=== PATIENT | female | born 1930 | race Caucasian/White ===

== ENCOUNTER → 2016-06-06 | Outpatient (CLI) | payer MEDICARE, OTHER ==
[~2016-06-06] MED LIST: CHOL135C6 OR; CHOL1TAB42 PO; COLLCAP2 OR; LANS30CA63 PO; METF-312 PO; OLMETAB3 OR; PANC3000 PO; RIVA20TA PO
== END | disposition home or self-care (01) ==
LOC: LAB 09:59
PROVIDERS: ATTEND Internal Medicine Cardiovascular Disease
DX: E11.9 Type 2 diabetes mellitus without complications (principal)
CPT/HCPCS: 36415; 83036

== ENCOUNTER → 2017-06-16 | Outpatient (CLI) | payer MEDICARE, OTHER ==
[~2017-06-16] MED LIST changes: +ASPI81CH43 PO; +CHLO50TA PO; +CHOL20002 PO; +CLON0.1T PO; +INSU1.2I SC; -METF-312 PO; +METF-370 PO
== END | disposition home or self-care (01) ==
LOC: Rad HDHVI 12:48
PROVIDERS: ATTEND Internal Medicine Cardiovascular Disease
DX: I07.1 Rheumatic tricuspid insufficiency (principal); I11.0 Hypertensive heart disease with heart failure; I50.43 Acute on chronic combined systolic (congestive) and diastolic (congestive) heart failure
CPT/HCPCS: 93306

== ENCOUNTER → 2017-06-23 | Outpatient (CLI) | payer MEDICARE, OTHER ==
[2017-06-23 09:15] VITALS: BP 150/72
[2017-06-23 09:35] VITALS: BP 119/71
[2017-06-23 12:46] LABS: Basophils # (auto) 0.1 uL; Eosinophils # (auto) 0.1 uL; Lymphocytes # (auto) 1.6 uL; Mean Corpuscular Hemoglobin 21.8 pg (28.0-32.0); Monocytes # (auto) 0.6 uL
[2017-06-23 12:47] LABS: Basophils % (auto) 1.3 % (0.0-2.0); Eosinophils % (auto) 1.6 % (0.0-7.0); Hemoglobin 10.2 g/dL (12.2-16.2); Lymphocytes % (auto) 24.1 % (10.0-50.0); Mean Corpuscular Hgb Conc. 30.9 g/dL (32.0-36.0); Mean Corpuscular Volume 70.7 fL (80.0-100.0); Monocytes % (auto) 9.4 % (0.0-12.0); Neutrophils # (auto) 4.3 uL; Neutrophils % (auto) 63.6 % (37.0-80.0); Nucleated Red Blood Cells % 0.2 %; Platelet Count (auto) 396 10^3/uL (140-450); Red Blood Cells 4.66 10^6/uL (4.0-5.20); White Blood Cell 6.8 10^3/uL (4.4-10.8)
[2017-06-23 12:56] LABS: INR 0.99 (0.9-1.15); Partial Thromboplastin Time 23.8 sec (22.64-33.71); Prothrombin Time 10.8 sec (9.37-12.3)
[2017-06-23 13:07] LABS: BUN/Creatinine Ratio 25.5; Potassium 4.1 mmol/L (3.5-5.1)
== END | disposition home or self-care (01) ==
LOC: Rad HDHVI 08:59
PROVIDERS: ATTEND Internal Medicine Cardiovascular Disease
DX: Z01.818 Encounter for other preprocedural examination (principal); K44.9 Diaphragmatic hernia without obstruction or gangrene; M85.80 Other specified disorders of bone density and structure, unspecified site; I51.7 Cardiomegaly; I70.0 Atherosclerosis of aorta; I10 Essential (primary) hypertension; E11.9 Type 2 diabetes mellitus without complications
CPT/HCPCS: 36415; 71046; 80048; 85025; 85610; 85730; 93005; G0463

== ENCOUNTER 2017-06-29 07:59 | Day surgery (SDC) | payer MEDICARE, OTHER ==
[~2017-06-29 07:59] MED LIST changes: -PANC3000 PO; -RIVA20TA PO
[2017-06-29] MEDS ORDERED: LIDOCAINE HCL 2 %PF INJ 10ML AMP IJ ONE ×2 (08:29→09:07)
[2017-06-29] MEDS ORDERED: IOHEXOL 350 MG/ML 100ML IJ ONE (08:29)
[2017-06-29] MEDS ORDERED: ANGIOMAX 250 MG VIAL IV ONE (08:51)
[2017-06-29] MEDS ORDERED: fentaNYL CITRATE 100 MCG/2 ML VL ONE (08:52)
[2017-06-29] MEDS ORDERED: MIDAZOLAM HCL 1MG/1ML-2 ML VIAL ONE (08:52)
[2017-06-29] MEDS ORDERED: SODIUM CHL 0.9% 0 ML ONE (08:52)
== END 2017-06-29 11:30 | disposition home or self-care (01) ==
LOC: CATH 07:59
PROVIDERS: ATTEND Internal Medicine Cardiovascular Disease
DX: I27.20 Pulmonary hypertension, unspecified (principal); I35.0 Nonrheumatic aortic (valve) stenosis; E78.5 Hyperlipidemia, unspecified; E11.9 Type 2 diabetes mellitus without complications; Z79.84 Long term (current) use of oral hypoglycemic drugs
CPT/HCPCS: 93456; C1760; C1769; C1894; J1644; J2250; J3010; J7030; Q9967; 93460; 99152

== ENCOUNTER → 2017-07-07 | Outpatient (CLI) | payer MEDICARE, OTHER ==
[2017-07-07 11:55] VITALS: BP 130/66
[2017-07-13 15:28] VITALS: BP 130/60
== END | disposition home or self-care (01) ==
LOC: CHF HDHVI 16:30
PROVIDERS: ATTEND Internal Medicine Cardiovascular Disease
DX: I27.21 Secondary pulmonary arterial hypertension (principal); I13.0 Hypertensive heart and chronic kidney disease with heart failure and stage 1 through stage 4 chronic kidney disease, or unspecified chronic kidney disease; E11.22 Type 2 diabetes mellitus with diabetic chronic kidney disease; N18.2 Chronic kidney disease, stage 2 (mild); I50.41 Acute combined systolic (congestive) and diastolic (congestive) heart failure; E78.5 Hyperlipidemia, unspecified; E03.9 Hypothyroidism, unspecified; Z79.84 Long term (current) use of oral hypoglycemic drugs
CPT/HCPCS: G0463

== ENCOUNTER → 2017-07-11 | Outpatient (CLI) | payer MEDICARE, OTHER ==
[2017-07-11 10:00] VITALS: BP 127/68
[2017-07-11 10:45] VITALS: BP 131/63
[2017-07-11 12:01] LABS: Basophils # (auto) 0.1 uL; Hemoglobin 10.2 g/dL (12.2-16.2); Mean Corpuscular Hemoglobin 21.7 pg (28.0-32.0); Neutrophils # (auto) 3.3 uL
[2017-07-11 12:03] LABS: Eosinophils # (auto) 0.2 uL; Eosinophils % (auto) 2.8 % (0.0-7.0); Lymphocytes # (auto) 1.4 uL; Lymphocytes % (auto) 25.7 % (10.0-50.0); Mean Corpuscular Volume 70.1 fL (80.0-100.0); Monocytes # (auto) 0.5 uL; Monocytes % (auto) 9.8 % (0.0-12.0); Neutrophils % (auto) 59.7 % (37.0-80.0); Nucleated Red Blood Cells % 0.1 %; Platelet Count (auto) 387 10^3/uL (140-450); Red Cell Distribution Width 18.7 % (11.8-14.3); White Blood Cell 5.5 10^3/uL (4.4-10.8)
[2017-07-11 12:27] LABS: Albumin 3.6 g/dL (3.4-5.0); BUN/Creatinine Ratio 30.3; Bilirubin, Total 0.5 mg/dL (0.2-1.0); Calcium 9.4 mg/dL (8.5-10.1); Magnesium 1.7 mg/dL (1.6-2.6); Total Protein 7.7 g/dL (6.4-8.2)
== END | disposition home or self-care (01) ==
LOC: CHF HDHVI 09:11
PROVIDERS: ATTEND Internal Medicine Cardiovascular Disease
DX: I11.0 Hypertensive heart disease with heart failure (principal); I50.23 Acute on chronic systolic (congestive) heart failure; E11.65 Type 2 diabetes mellitus with hyperglycemia; E03.9 Hypothyroidism, unspecified; E78.5 Hyperlipidemia, unspecified; I27.21 Secondary pulmonary arterial hypertension; I25.10 Atherosclerotic heart disease of native coronary artery without angina pectoris; Z79.84 Long term (current) use of oral hypoglycemic drugs
CPT/HCPCS: 36415; 80053; 82306; 83036; 83735; 84443; 85025; 93701; 94618; G0463

== ENCOUNTER → 2017-07-19 | Outpatient (CLI) | payer MEDICARE, OTHER ==
[~2017-07-19] MED LIST changes: +CYANOCOBALAMIN (B-12) 1000 MCG/1 ML VIAL IM ONE; +CYANOCOBALAMIN (B-12) 1000 MCG/1 ML VIAL ONE
[2017-07-19 10:40] VITALS: BP 196/83
[2017-07-19 11:25] VITALS: BP 162/77
[2017-07-19 16:15] LABS: Urine Bacteria FEW /hpf (None Seen); Urine Blood Negative /uL (Negative); Urine Specific Gravity 1.011 (1.001-1.035); Urine WBC 1 /hpf (0 - 5)
== END | disposition home or self-care (01) ==
LOC: CHF HDHVI 10:39
PROVIDERS: ATTEND Internal Medicine Cardiovascular Disease
DX: N39.0 Urinary tract infection, site not specified (principal); I27.21 Secondary pulmonary arterial hypertension; I13.0 Hypertensive heart and chronic kidney disease with heart failure and stage 1 through stage 4 chronic kidney disease, or unspecified chronic kidney disease; E11.22 Type 2 diabetes mellitus with diabetic chronic kidney disease; N18.2 Chronic kidney disease, stage 2 (mild); I50.43 Acute on chronic combined systolic (congestive) and diastolic (congestive) heart failure; D63.1 Anemia in chronic kidney disease; E78.5 Hyperlipidemia, unspecified; E03.9 Hypothyroidism, unspecified; I25.10 Atherosclerotic heart disease of native coronary artery without angina pectoris; Z79.84 Long term (current) use of oral hypoglycemic drugs
CPT/HCPCS: 81001; 87086; 87088; 87186; G0463; J3420; 96372

== ENCOUNTER → 2017-07-27 | Outpatient (CLI) | payer MEDICARE, OTHER ==
[~2017-07-27] MED LIST changes: -CYANOCOBALAMIN (B-12) 1000 MCG/1 ML VIAL IM ONE; -CYANOCOBALAMIN (B-12) 1000 MCG/1 ML VIAL ONE
[2017-07-27 11:45] VITALS: BP 145/76
[2017-07-27 12:15] VITALS: BP 159/74
[2017-07-27 15:51] LABS: Basophils # (auto) 0.1 uL; Eosinophils # (auto) 0.1 uL; Hemoglobin 9.9 g/dL (12.2-16.2); Monocytes # (auto) 0.7 uL; White Blood Cell 7.5 10^3/uL (4.4-10.8)
[2017-07-27 15:53] LABS: Basophils % (auto) 1.4 % (0.0-2.0); Eosinophils % (auto) 1.8 % (0.0-7.0); Hematocrit 31.8 % (36.0-46.0); Lymphocytes # (auto) 1.5 uL; Lymphocytes % (auto) 20.1 % (10.0-50.0); Mean Corpuscular Hemoglobin 22.1 pg (28.0-32.0); Mean Corpuscular Hgb Conc. 31.2 g/dL (32.0-36.0); Mean Corpuscular Volume 70.9 fL (80.0-100.0); Monocytes % (auto) 9.9 % (0.0-12.0); Neutrophils % (auto) 66.8 % (37.0-80.0); Nucleated Red Blood Cells % 0.5 %; Platelet Count (auto) 354 10^3/uL (140-450); Red Blood Cells 4.48 10^6/uL (4.0-5.20); Red Cell Distribution Width 19.6 % (11.8-14.3)
[2017-07-27 16:03] LABS: Potassium 4.2 mmol/L (3.5-5.1)
== END | disposition home or self-care (01) ==
LOC: CHF HDHVI 11:49
PROVIDERS: ATTEND Internal Medicine Cardiovascular Disease
DX: I13.0 Hypertensive heart and chronic kidney disease with heart failure and stage 1 through stage 4 chronic kidney disease, or unspecified chronic kidney disease (principal); E11.22 Type 2 diabetes mellitus with diabetic chronic kidney disease; I50.43 Acute on chronic combined systolic (congestive) and diastolic (congestive) heart failure; N18.2 Chronic kidney disease, stage 2 (mild)
CPT/HCPCS: 36415; 82565; 82607; 84132; 84520; 85025; G0463

== ENCOUNTER → 2017-07-28 | Outpatient (CLI) | payer MEDICARE, OTHER ==
[~2017-07-28] VITALS: Ht 30.5 cm; Wt 0.5 kg
[~2017-07-28] MED LIST changes: +MAGNESIUM OXIDE 400 MG TAB ONE; +MAGNESIUM OXIDE 400 MG TAB PO ONE; +POTASSIUM CHL 20 Meq TABLET PO ONE
[2017-07-28 11:00] VITALS: BP 124/65
[2017-07-28 15:57] LABS: Basophils # (auto) 0.1 uL; Hemoglobin 9.3 g/dL (12.2-16.2); Lymphocytes # (auto) 1.2 uL; Monocytes # (auto) 0.7 uL; Monocytes % (auto) 9.7 % (0.0-12.0); Nucleated Red Blood Cells % 0.2 %; Red Cell Distribution Width 19.9 % (11.8-14.3)
[2017-07-28 15:59] LABS: Basophils % (auto) 0.9 % (0.0-2.0); Eosinophils # (auto) 0 uL; Eosinophils % (auto) 0.7 % (0.0-7.0); Hematocrit 29.5 % (36.0-46.0); Lymphocytes % (auto) 17.6 % (10.0-50.0); Mean Corpuscular Hemoglobin 22.1 pg (28.0-32.0); Mean Corpuscular Hgb Conc. 31.6 g/dL (32.0-36.0); Mean Corpuscular Volume 70.1 fL (80.0-100.0); Neutrophils % (auto) 71.1 % (37.0-80.0); Platelet Count (auto) 319 10^3/uL (140-450); Red Blood Cells 4.21 10^6/uL (4.0-5.20); White Blood Cell 7.1 10^3/uL (4.4-10.8)
[2017-07-28 16:02] LABS: Magnesium 1.5 mg/dL (1.6-2.6); Potassium 4.1 mmol/L (3.5-5.1)
== END | disposition home or self-care (01) ==
LOC: CHF HDHVI 11:23
PROVIDERS: ATTEND Internal Medicine Cardiovascular Disease
DX: E87.6 Hypokalemia (principal); E83.40 Disorders of magnesium metabolism, unspecified; I12.9 Hypertensive chronic kidney disease with stage 1 through stage 4 chronic kidney disease, or unspecified chronic kidney disease; E11.22 Type 2 diabetes mellitus with diabetic chronic kidney disease; N18.2 Chronic kidney disease, stage 2 (mild); D63.1 Anemia in chronic kidney disease
CPT/HCPCS: 36415; 83735; 84132; 85025; G0463

== ENCOUNTER → 2017-08-03 | Outpatient (CLI) | payer MEDICARE, OTHER ==
[~2017-08-03] MED LIST changes: +KETOROLAC TROMETH 60MG/2ML VIAL IM ONE; -MAGNESIUM OXIDE 400 MG TAB ONE; -MAGNESIUM OXIDE 400 MG TAB PO ONE; -POTASSIUM CHL 20 Meq TABLET PO ONE
[2017-08-03 09:00] VITALS: BP 112/54
[2017-08-03 10:20] VITALS: BP 140/76
[2017-08-03 12:10] LABS: Urine Blood Negative /uL (Negative)
== END | disposition home or self-care (01) ==
LOC: CHF HDHVI 09:00
PROVIDERS: ATTEND Internal Medicine Cardiovascular Disease
DX: N39.0 Urinary tract infection, site not specified (principal); I13.0 Hypertensive heart and chronic kidney disease with heart failure and stage 1 through stage 4 chronic kidney disease, or unspecified chronic kidney disease; E11.22 Type 2 diabetes mellitus with diabetic chronic kidney disease; N18.2 Chronic kidney disease, stage 2 (mild); I50.43 Acute on chronic combined systolic (congestive) and diastolic (congestive) heart failure; M71.21 Synovial cyst of popliteal space [Baker], right knee; I25.10 Atherosclerotic heart disease of native coronary artery without angina pectoris; E03.9 Hypothyroidism, unspecified; N81.10 Cystocele, unspecified
CPT/HCPCS: 81003; 87086; 96372; G0463; J1885

== ENCOUNTER → 2017-08-10 | Outpatient (CLI) | payer MEDICARE, OTHER ==
[~2017-08-10] VITALS: Ht 30.5 cm; Wt 76.4 kg
[2017-08-10 09:13] VITALS: BP 125/66
[2017-08-10 10:25] VITALS: BP 133/73
[2017-08-10 12:05] LABS: Urine Blood Negative /uL (Negative)
[2017-08-10 12:06] LABS: Basophils # (auto) 0.1 uL; Eosinophils # (auto) 0.1 uL; Hemoglobin 10.1 g/dL (12.2-16.2); Lymphocytes # (auto) 1.6 uL; Monocytes # (auto) 0.6 uL; Neutrophils # (auto) 4.3 uL; Nucleated Red Blood Cells % 0.4 %; White Blood Cell 6.8 10^3/uL (4.4-10.8)
[2017-08-10 12:12] LABS: Basophils % (auto) 1.4 % (0.0-2.0); Eosinophils % (auto) 2.1 % (0.0-7.0); Hematocrit 32.8 % (36.0-46.0); Lymphocytes % (auto) 24.2 % (10.0-50.0); Mean Corpuscular Hemoglobin 21.7 pg (28.0-32.0); Mean Corpuscular Hgb Conc. 30.7 g/dL (32.0-36.0); Mean Corpuscular Volume 70.7 fL (80.0-100.0); Monocytes % (auto) 8.3 % (0.0-12.0); Platelet Count (auto) 440 10^3/uL (140-450); Red Blood Cells 4.65 10^6/uL (4.0-5.20)
[2017-08-10 12:15] LABS: Red Cell Distribution Width 20.5 % (11.8-14.3)
[2017-08-10 12:18] LABS: Calcium 10.2 mg/dL (8.5-10.1); Potassium 4.1 mmol/L (3.5-5.1)
== END | disposition home or self-care (01) ==
LOC: CHF HDHVI 09:26
PROVIDERS: ATTEND Internal Medicine Cardiovascular Disease
DX: I13.0 Hypertensive heart and chronic kidney disease with heart failure and stage 1 through stage 4 chronic kidney disease, or unspecified chronic kidney disease (principal); E11.22 Type 2 diabetes mellitus with diabetic chronic kidney disease; N18.2 Chronic kidney disease, stage 2 (mild); I50.43 Acute on chronic combined systolic (congestive) and diastolic (congestive) heart failure; N39.0 Urinary tract infection, site not specified; I70.0 Atherosclerosis of aorta; I25.10 Atherosclerotic heart disease of native coronary artery without angina pectoris; E03.9 Hypothyroidism, unspecified; E78.5 Hyperlipidemia, unspecified
CPT/HCPCS: 36415; 80048; 81003; 83735; 85025; 87086; 93701; 96372; G0463; J1885

== ENCOUNTER → 2017-08-18 | Outpatient (CLI) | payer MEDICARE, OTHER ==
[2017-08-18 09:50] VITALS: BP 109/84
[2017-08-18 10:23] VITALS: BP 137/70
[2017-08-18 15:38] LABS: Urine Blood Negative /uL (Negative); Urine Specific Gravity 1.016 (1.001-1.035)
== END | disposition home or self-care (01) ==
LOC: CHF HDHVI 10:01
PROVIDERS: ATTEND Internal Medicine Cardiovascular Disease
DX: M71.21 Synovial cyst of popliteal space [Baker], right knee (principal); I27.21 Secondary pulmonary arterial hypertension; N39.0 Urinary tract infection, site not specified; I13.0 Hypertensive heart and chronic kidney disease with heart failure and stage 1 through stage 4 chronic kidney disease, or unspecified chronic kidney disease; E11.22 Type 2 diabetes mellitus with diabetic chronic kidney disease; N18.2 Chronic kidney disease, stage 2 (mild); I50.43 Acute on chronic combined systolic (congestive) and diastolic (congestive) heart failure; D63.1 Anemia in chronic kidney disease; E78.5 Hyperlipidemia, unspecified; E03.9 Hypothyroidism, unspecified; Z79.84 Long term (current) use of oral hypoglycemic drugs
CPT/HCPCS: 81003; 87086; 96372; G0463; J1885

== ENCOUNTER → 2017-08-31 | Outpatient (CLI) | payer MEDICARE, OTHER ==
[~2017-08-31] MED LIST changes: -KETOROLAC TROMETH 60MG/2ML VIAL IM ONE
[2017-08-31 10:23] VITALS: BP 137/70
[2017-08-31 10:25] VITALS: BP 148/70
== END | disposition home or self-care (01) ==
LOC: CHF HDHVI 10:33
PROVIDERS: ATTEND Internal Medicine Cardiovascular Disease
DX: N39.0 Urinary tract infection, site not specified (principal); I27.21 Secondary pulmonary arterial hypertension; E11.9 Type 2 diabetes mellitus without complications; E78.5 Hyperlipidemia, unspecified; E03.9 Hypothyroidism, unspecified; Z79.84 Long term (current) use of oral hypoglycemic drugs
CPT/HCPCS: G0463

== ENCOUNTER → 2017-09-15 | Outpatient (CLI) | payer MEDICARE, BC ==
[2017-09-15 10:10] VITALS: BP 129/65
[2017-09-15 11:10] VITALS: BP 135/75
== END | disposition home or self-care (01) ==
LOC: CHF HDHVI 10:16
PROVIDERS: ATTEND Internal Medicine Cardiovascular Disease
DX: I27.21 Secondary pulmonary arterial hypertension (principal); N39.0 Urinary tract infection, site not specified; I13.0 Hypertensive heart and chronic kidney disease with heart failure and stage 1 through stage 4 chronic kidney disease, or unspecified chronic kidney disease; E11.22 Type 2 diabetes mellitus with diabetic chronic kidney disease; N18.2 Chronic kidney disease, stage 2 (mild); I50.9 Heart failure, unspecified; E78.5 Hyperlipidemia, unspecified; E03.9 Hypothyroidism, unspecified
CPT/HCPCS: 93701; G0463

== ENCOUNTER → 2017-10-06 | Outpatient (CLI) | payer MEDICARE, BC ==
[~2017-10-06] MED LIST changes: +CYANOCOBALAMIN (B-12) 1000 MCG/1 ML VIAL IM ONE; +CYANOCOBALAMIN (B-12) 1000 MCG/1 ML VIAL ONE
[2017-10-06 10:40] VITALS: BP 159/65
[2017-10-06 12:00] VITALS: BP 148/66
[2017-10-06 15:45] LABS: Basophils # (auto) 0.1 uL; Basophils % (auto) 0.9 % (0.0-2.0); Eosinophils # (auto) 0.1 uL; Hemoglobin 11.5 g/dL (12.2-16.2); Lymphocytes # (auto) 1.3 uL; Neutrophils # (auto) 5.5 uL
[2017-10-06 15:50] LABS: Eosinophils % (auto) 1.1 % (0.0-7.0); Hematocrit 35.8 % (36.0-46.0); Lymphocytes % (auto) 17.5 % (10.0-50.0); Mean Corpuscular Hemoglobin 25.3 pg (28.0-32.0); Mean Corpuscular Hgb Conc. 32.3 g/dL (32.0-36.0); Mean Corpuscular Volume 78.4 fL (80.0-100.0); Monocytes # (auto) 0.7 uL; Monocytes % (auto) 8.8 % (0.0-12.0); Neutrophils % (auto) 71.7 % (37.0-80.0); Nucleated Red Blood Cells % 0.4 %; Platelet Count (auto) 287 10^3/uL (140-450); Red Blood Cells 4.56 10^6/uL (4.0-5.20); White Blood Cell 7.7 10^3/uL (4.4-10.8)
[2017-10-06 15:54] LABS: Red Cell Distribution Width 21.6 % (11.8-14.3)
[2017-10-06 16:00] LABS: Albumin 3.8 g/dL (3.4-5.0); BUN/Creatinine Ratio 27.6; Bilirubin, Total 0.4 mg/dL (0.2-1.0); Calcium 10.3 mg/dL (8.5-10.1); Potassium 4.2 mmol/L (3.5-5.1); Total Protein 7.6 g/dL (6.4-8.2)
== END | disposition home or self-care (01) ==
LOC: CHF HDHVI 10:35
PROVIDERS: ATTEND Internal Medicine Cardiovascular Disease
DX: D51.9 Vitamin B12 deficiency anemia, unspecified (principal); I10 Essential (primary) hypertension; E11.9 Type 2 diabetes mellitus without complications; E55.9 Vitamin D deficiency, unspecified; I25.10 Atherosclerotic heart disease of native coronary artery without angina pectoris; I27.21 Secondary pulmonary arterial hypertension; I13.0 Hypertensive heart and chronic kidney disease with heart failure and stage 1 through stage 4 chronic kidney disease, or unspecified chronic kidney disease; I50.43 Acute on chronic combined systolic (congestive) and diastolic (congestive) heart failure; E11.22 Type 2 diabetes mellitus with diabetic chronic kidney disease; N18.2 Chronic kidney disease, stage 2 (mild); E78.5 Hyperlipidemia, unspecified; E03.9 Hypothyroidism, unspecified; Z79.4 Long term (current) use of insulin
CPT/HCPCS: 36415; 80053; 82306; 82607; 83036; 85025; 93701; 96372; G0463; J3420

== ENCOUNTER → 2017-10-20 | Outpatient (CLI) | payer MEDICARE, BC ==
[~2017-10-20] MED LIST changes: -CYANOCOBALAMIN (B-12) 1000 MCG/1 ML VIAL IM ONE
[2017-10-20 10:15] VITALS: BP 118/62
[2017-10-20 11:50] VITALS: BP 122/58
== END | disposition home or self-care (01) ==
LOC: CHF HDHVI 10:02
PROVIDERS: ATTEND Internal Medicine Cardiovascular Disease
DX: D51.9 Vitamin B12 deficiency anemia, unspecified (principal); I27.21 Secondary pulmonary arterial hypertension; I13.0 Hypertensive heart and chronic kidney disease with heart failure and stage 1 through stage 4 chronic kidney disease, or unspecified chronic kidney disease; E11.22 Type 2 diabetes mellitus with diabetic chronic kidney disease; N18.2 Chronic kidney disease, stage 2 (mild); I50.43 Acute on chronic combined systolic (congestive) and diastolic (congestive) heart failure; I25.10 Atherosclerotic heart disease of native coronary artery without angina pectoris; E78.5 Hyperlipidemia, unspecified; E03.9 Hypothyroidism, unspecified; Z79.4 Long term (current) use of insulin
CPT/HCPCS: 93701; 96372; G0463; J3420

== ENCOUNTER → 2017-11-23 | Outpatient (CLI) | payer MEDICARE, BC ==
[~2017-11-23] MED LIST changes: -CYANOCOBALAMIN (B-12) 1000 MCG/1 ML VIAL ONE
[2017-11-23 09:50] VITALS: BP 130/81
[2017-11-23 11:25] VITALS: BP 132/79
== END | disposition home or self-care (01) ==
LOC: CHF HDHVI 09:56
PROVIDERS: ATTEND Internal Medicine Cardiovascular Disease
DX: I27.21 Secondary pulmonary arterial hypertension (principal)
CPT/HCPCS: 93701; 94618; G0463

== ENCOUNTER → 2017-11-27 | Outpatient (CLI) | payer MEDICARE, BC | END | disposition home or self-care (01) | LOC: Rad HDHVI 13:59 | PROVIDERS: ATTEND Internal Medicine Cardiovascular Disease | DX: I08.3 Combined rheumatic disorders of mitral, aortic and tricuspid valves (principal); I71.2 Thoracic aortic aneurysm, without rupture; I10 Essential (primary) hypertension; E70.0 Classical phenylketonuria; I20.0 Unstable angina; E11.9 Type 2 diabetes mellitus without complications; E03.9 Hypothyroidism, unspecified | CPT/HCPCS: 93306 ==

== ENCOUNTER → 2017-11-30 | Outpatient (CLI) | payer MEDICARE, BC ==
[2017-11-30 09:55] VITALS: BP 132/70
[2017-11-30 11:15] VITALS: BP 149/75
[2017-11-30 12:31] LABS: BUN/Creatinine Ratio 23.9; Calcium 10.2 mg/dL (8.5-10.1); Magnesium 1.5 mg/dL (1.6-2.6); Potassium 4.1 mmol/L (3.5-5.1)
[2017-11-30 12:34] LABS: Basophils # (auto) 0.1 uL; Eosinophils # (auto) 0.1 uL; Monocytes # (auto) 0.6 uL; Nucleated Red Blood Cells % 0.1 %
[2017-11-30 12:37] LABS: Basophils % (auto) 1.3 % (0.0-2.0); Eosinophils % (auto) 1.4 % (0.0-7.0); Hematocrit 37.2 % (36.0-46.0); Hemoglobin 12.1 g/dL (12.2-16.2); Lymphocytes # (auto) 1.5 uL; Lymphocytes % (auto) 22.6 % (10.0-50.0); Mean Corpuscular Hemoglobin 26.7 pg (28.0-32.0); Mean Corpuscular Hgb Conc. 32.6 g/dL (32.0-36.0); Mean Corpuscular Volume 82.1 fL (80.0-100.0); Monocytes % (auto) 9.2 % (0.0-12.0); Neutrophils # (auto) 4.4 uL; Neutrophils % (auto) 65.5 % (37.0-80.0); Platelet Count (auto) 310 10^3/uL (140-450); Red Blood Cells 4.53 10^6/uL (4.0-5.20); Red Cell Distribution Width 18.2 % (11.8-14.3); White Blood Cell 6.7 10^3/uL (4.4-10.8)
== END | disposition home or self-care (01) ==
LOC: CHF HDHVI 10:02
PROVIDERS: ATTEND Internal Medicine Cardiovascular Disease
DX: E83.40 Disorders of magnesium metabolism, unspecified (principal); D64.9 Anemia, unspecified; I10 Essential (primary) hypertension; I27.21 Secondary pulmonary arterial hypertension; E11.9 Type 2 diabetes mellitus without complications; E03.9 Hypothyroidism, unspecified
CPT/HCPCS: 36415; 80048; 83735; 85025; 93701; G0463

== ENCOUNTER → 2017-12-21 | Outpatient (CLI) | payer MEDICARE, BC ==
[~2017-12-21] MED LIST changes: +CYANOCOBALAMIN (B-12) 1000 MCG/1 ML VIAL IM ONE; +CYANOCOBALAMIN (B-12) 1000 MCG/1 ML VIAL ONE; +FUROSEMIDE 20 MG/2 ML VIAL ONE; +MAGNESIUM OXIDE 400 MG TAB ONE; +MAGNESIUM OXIDE 400 MG TAB PO ONE
[2017-12-21 10:15] VITALS: BP 146/75
[2017-12-21 10:45] VITALS: BP 146/78
[2017-12-21 12:21] LABS: Urine Bacteria NONE SEEN /hpf (None Seen); Urine Blood Negative /uL (Negative); Urine Specific Gravity 1.012 (1.001-1.035); Urine WBC <1 /hpf (0 - 5)
[2017-12-21 13:46] LABS: Magnesium 1.4 mg/dL (1.6-2.6); Potassium 4.2 mmol/L (3.5-5.1)
== END | disposition home or self-care (01) ==
LOC: CHF HDHVI 09:56
PROVIDERS: ATTEND Internal Medicine Cardiovascular Disease
DX: N39.0 Urinary tract infection, site not specified (principal); E83.40 Disorders of magnesium metabolism, unspecified; E87.6 Hypokalemia; R94.4 Abnormal results of kidney function studies
CPT/HCPCS: 36415; 81001; 82565; 83735; 84132; 84520; 87086; 96372; G0463; J3420

== ENCOUNTER → 2018-02-08 | Outpatient (CLI) | payer MEDICARE, BC ==
[~2018-02-08] MED LIST changes: -FUROSEMIDE 20 MG/2 ML VIAL ONE; -MAGNESIUM OXIDE 400 MG TAB ONE; -MAGNESIUM OXIDE 400 MG TAB PO ONE; +MAGNESIUM SULFATE 1GM/100ML 100 ML IV ONE
[2018-02-08 09:20] VITALS: BP 140/70
[2018-02-08 11:00] VITALS: BP 128/59
[2018-02-08 11:56] LABS: Basophils # (auto) 0.1 uL; Basophils % (auto) 1.1 % (0.0-2.0); Eosinophils # (auto) 0.1 uL; Eosinophils % (auto) 1.4 % (0.0-7.0); Hemoglobin 11.7 g/dL (12.2-16.2); Lymphocytes # (auto) 1.5 uL; Lymphocytes % (auto) 21.2 % (10.0-50.0); Mean Corpuscular Hgb Conc. 32.5 g/dL (32.0-36.0); Mean Corpuscular Volume 86.2 fL (80.0-100.0); Monocytes # (auto) 0.6 uL; Monocytes % (auto) 8.7 % (0.0-12.0); Neutrophils # (auto) 4.9 uL; Neutrophils % (auto) 67.6 % (37.0-80.0); Nucleated Red Blood Cells % 0.1 %; Platelet Count (auto) 291 10^3/uL (140-450); Red Blood Cells 4.18 10^6/uL (4.0-5.20); Red Cell Distribution Width 15.9 % (11.8-14.3); White Blood Cell 7.3 10^3/uL (4.4-10.8)
[2018-02-08 12:12] LABS: Albumin 3.6 g/dL (3.4-5.0); BUN/Creatinine Ratio 30.7; Calcium 9.6 mg/dL (8.5-10.1); Magnesium 1.6 mg/dL (1.6-2.6); Potassium 3.9 mmol/L (3.5-5.1)
[2018-02-08 12:14] LABS: Bilirubin, Total 0.5 mg/dL (0.2-1.0); Total Protein 7.4 g/dL (6.4-8.2)
== END | disposition home or self-care (01) ==
LOC: CHF HDHVI 09:30
PROVIDERS: ATTEND Internal Medicine Cardiovascular Disease
DX: D51.9 Vitamin B12 deficiency anemia, unspecified (principal); I27.21 Secondary pulmonary arterial hypertension; E83.40 Disorders of magnesium metabolism, unspecified; E11.9 Type 2 diabetes mellitus without complications; R94.4 Abnormal results of kidney function studies; E87.6 Hypokalemia
CPT/HCPCS: 36415; 80053; 82306; 82607; 83036; 83735; 85025; 93701; 94618; 96365; 96372; G0463; J3420; J3475

== ENCOUNTER → 2018-03-08 | Outpatient (CLI) | payer MEDICARE, BC ==
[~2018-03-08] MED LIST changes: -CYANOCOBALAMIN (B-12) 1000 MCG/1 ML VIAL IM ONE; -MAGNESIUM SULFATE 1GM/100ML 100 ML IV ONE
[2018-03-08 10:00] VITALS: BP 140/65
[2018-03-08 11:20] VITALS: BP 136/64
== END | disposition home or self-care (01) ==
LOC: CHF HDHVI 10:18
PROVIDERS: ATTEND Internal Medicine Cardiovascular Disease
DX: D51.9 Vitamin B12 deficiency anemia, unspecified (principal); I13.0 Hypertensive heart and chronic kidney disease with heart failure and stage 1 through stage 4 chronic kidney disease, or unspecified chronic kidney disease; I50.42 Chronic combined systolic (congestive) and diastolic (congestive) heart failure; E11.22 Type 2 diabetes mellitus with diabetic chronic kidney disease; N18.2 Chronic kidney disease, stage 2 (mild); I25.10 Atherosclerotic heart disease of native coronary artery without angina pectoris; I70.0 Atherosclerosis of aorta; I27.21 Secondary pulmonary arterial hypertension; I08.3 Combined rheumatic disorders of mitral, aortic and tricuspid valves; I71.2 Thoracic aortic aneurysm, without rupture; M85.80 Other specified disorders of bone density and structure, unspecified site; E03.9 Hypothyroidism, unspecified; E78.5 Hyperlipidemia, unspecified; Z79.4 Long term (current) use of insulin; Z79.84 Long term (current) use of oral hypoglycemic drugs
CPT/HCPCS: 96372; G0463; J3420

== ENCOUNTER → 2018-03-15 | Outpatient (CLI) | payer MEDICARE, BC ==
[~2018-03-15] MED LIST changes: -CYANOCOBALAMIN (B-12) 1000 MCG/1 ML VIAL ONE
[2018-03-15 09:15] VITALS: BP 140/72
[2018-03-15 10:15] VITALS: BP 146/73
== END | disposition home or self-care (01) ==
LOC: CHF HDHVI 09:12
PROVIDERS: ATTEND Internal Medicine Cardiovascular Disease
DX: I27.20 Pulmonary hypertension, unspecified (principal); D64.9 Anemia, unspecified
CPT/HCPCS: 93701; G0463

== ENCOUNTER → 2018-04-06 | Outpatient (CLI) | payer MEDICARE, BC ==
[2018-04-06 12:12] LABS: Urine Blood TRACE /uL (Negative); Urine Specific Gravity 1.013 (1.001-1.035)
== END | disposition home or self-care (01) ==
LOC: LAB 09:29
PROVIDERS: ATTEND Internal Medicine Cardiovascular Disease
DX: N39.0 Urinary tract infection, site not specified (principal); E11.40 Type 2 diabetes mellitus with diabetic neuropathy, unspecified
CPT/HCPCS: 36415; 81003; 83036; 87086

== ENCOUNTER → 2018-04-26 | Outpatient (CLI) | payer MEDICARE, BC ==
[2018-04-26 10:10] VITALS: BP 139/87
[2018-04-26 11:15] VITALS: BP 131/64
--- NOTE | 2018-04-26 11:15 | NUR ---
IN TO CLINIC FOR PAH FOLLOWUP. WITHOUT DISTRESS. AFFECT CHEERFUL. 6 MIN WALK TEST COMPLETED AND CARDIODYNAMICS COMPLETED. REVIEWED BY YASMANY PETERSEN. LABS REVIEWED. ADDITIONAL LABS DRAWN AND SENT. DISCUSSED DIABETIC MANAGEMENT AND DIET MANAGEMENT. PT VERBALIZED UNDERSTANDING AND REPEATED BACK INSTRUCTIONS. PT TAKES METFORMIN 1000 MG BID AND TOUJEO 10 MG SUB Q AT BEDTIME. REPORTS FEELING BETTER OVERALL. Discharge Instructions See e-MAR for any mediations given with this visit. Patient education given on disease process. Patient verbalized understanding. Previous labs reviewed. Patient discharged in stable condition with after care instructions and follow up appointment.
[2018-04-26 12:15] LABS: Basophils # (auto) 0.1 uL; Eosinophils # (auto) 0.1 uL; Hemoglobin 11.5 g/dL (12.2-16.2); Mean Corpuscular Volume 80.5 fL (80.0-100.0); Monocytes # (auto) 0.5 uL; Neutrophils # (auto) 4.1 uL
[2018-04-26 12:17] LABS: Basophils % (auto) 1.3 % (0.0-2.0); Eosinophils % (auto) 1.4 % (0.0-7.0); Hematocrit 35.7 % (36.0-46.0); Lymphocytes # (auto) 1.3 uL; Lymphocytes % (auto) 21.7 % (10.0-50.0); Mean Corpuscular Hgb Conc. 32.2 g/dL (32.0-36.0); Monocytes % (auto) 8.6 % (0.0-12.0); Platelet Count (auto) 328 10^3/uL (140-450); Red Blood Cells 4.43 10^6/uL (4.0-5.20); Red Cell Distribution Width 15.9 % (11.8-14.3); White Blood Cell 6.1 10^3/uL (4.4-10.8)
[2018-04-26 13:05] LABS: Albumin 3.6 g/dL (3.4-5.0); Calcium 9.8 mg/dL (8.5-10.1); Magnesium 1.6 mg/dL (1.6-2.6)
[2018-04-26 13:12] LABS: BUN/Creatinine Ratio 27.3; Bilirubin, Total 0.5 mg/dL (0.2-1.0); Total Protein 7.4 g/dL (6.4-8.2)
== END | disposition home or self-care (01) ==
LOC: CHF HDHVI 10:21
PROVIDERS: ATTEND Internal Medicine Cardiovascular Disease
DX: I10 Essential (primary) hypertension (principal); E55.9 Vitamin D deficiency, unspecified; D51.9 Vitamin B12 deficiency anemia, unspecified; D64.9 Anemia, unspecified; E03.9 Hypothyroidism, unspecified
CPT/HCPCS: 36415; 80053; 82306; 82607; 83735; 84443; 85025

== ENCOUNTER → 2018-05-24 | Outpatient (CLI) | payer MEDICARE, BC ==
--- NOTE | 2018-05-24 10:20 | NUR ---
PT. TO PAH CLINIC FOR EVAL. AND TX. WT. STABLE, AND 92% ON RA. ORDERS RECEIVED TO ADD NEW PAH MED., OPSUMIT 10MG PO DAILY PER DR. PYLE. ALL PAPERWORK EXPLAINED AND SIGNED ON THIS ERA CLASSIFICATION DRUG. PT. IS CURRENTLY ON OPTIMAL DOSING OF ADEMPAS WITH EPSODES OF SHORTNESS OF BREATH WITH EXERTION. SEE NSG ASSESS.
[2018-05-24 10:30] VITALS: BP 132/64
--- NOTE | 2018-05-24 11:00 | NUR ---
CARDIODYNAMICS DONE WITH SLIGHT IMPROVEMENT IN C.O., SVR, AND TFC. RESULTS CHARTED, WITH PT. RESTARTING ARGINEXT AT ONE SCOOP DAILY FOR 3 WEEKS AND TOLERATING WELL.
[2018-05-24 11:25] VITALS: BP 128/62
--- NOTE | 2018-05-24 11:25 | NUR ---
Discharge Instructions See e-MAR for any mediations given with this visit. Patient education given on disease process. Patient verbalized understanding. Previous labs reviewed. Patient discharged in stable condition with after care instructions and follow up appointment. PT. TO RTC WHEN SHE RECEIVES HER OPSUMIT WITHIN THE NEXT WEEK.
== END | disposition home or self-care (01) ==
LOC: CHF HDHVI 10:23
PROVIDERS: ATTEND Internal Medicine Cardiovascular Disease
DX: I27.20 Pulmonary hypertension, unspecified (principal); I25.10 Atherosclerotic heart disease of native coronary artery without angina pectoris; E11.9 Type 2 diabetes mellitus without complications
CPT/HCPCS: 93701; G0463

== ENCOUNTER → 2018-05-29 | Outpatient (CLI) | payer MEDICARE, BC ==
[2018-05-29 08:20] VITALS: BP 163/74
--- NOTE | 2018-05-29 08:50 | NUR ---
PAH AND MEDICATION MANAGEMENT. FASTING LABS DRAWN AND SENT. TOOK FIRST DOSE OPSUMMIT. SIDE EFFECTS AND REACTIONS REVIEWED. REPEAT BACK INSTRUCTIONS OBTAINED. Discharge Instructions See e-MAR for any mediations given with this visit. Patient education given on disease process. Patient verbalized understanding. Previous labs reviewed. Patient discharged in stable condition with after care instructions and follow up appointment IN 1 WEEK FOR FOLLOWUP MEDICATION ON 06/05/18
[2018-05-29 11:52] LABS: Basophils # (auto) 0.1 uL; Eosinophils # (auto) 0.1 uL; Hemoglobin 11.7 g/dL (12.2-16.2); Lymphocytes # (auto) 1.4 uL; Lymphocytes % (auto) 26.2 % (10.0-50.0); Mean Corpuscular Hgb Conc. 31.7 g/dL (32.0-36.0); Monocytes # (auto) 0.5 uL; Neutrophils # (auto) 3.2 uL; White Blood Cell 5.2 10^3/uL (4.4-10.8)
[2018-05-29 11:55] LABS: Basophils % (auto) 1.6 % (0.0-2.0); Eosinophils % (auto) 2.1 % (0.0-7.0); Mean Corpuscular Hemoglobin 25.6 pg (28.0-32.0); Mean Corpuscular Volume 80.8 fL (80.0-100.0); Monocytes % (auto) 8.8 % (0.0-12.0); Neutrophils % (auto) 61.3 % (37.0-80.0); Nucleated Red Blood Cells % 0.3 %; Platelet Count (auto) 361 10^3/uL (140-450); Red Blood Cells 4.58 10^6/uL (4.0-5.20)
[2018-05-29 12:06] LABS: Albumin 3.7 g/dL (3.4-5.0); Calcium 10.3 mg/dL (8.5-10.1); Magnesium 1.9 mg/dL (1.6-2.6); Potassium 4.4 mmol/L (3.5-5.1)
[2018-05-29 12:11] LABS: BUN/Creatinine Ratio 34.1; Bilirubin, Total 0.4 mg/dL (0.2-1.0); Total Protein 7.7 g/dL (6.4-8.2)
== END | disposition home or self-care (01) ==
LOC: CHF HDHVI 08:29
PROVIDERS: ATTEND Internal Medicine Cardiovascular Disease
DX: I10 Essential (primary) hypertension (principal); D64.9 Anemia, unspecified; E78.5 Hyperlipidemia, unspecified; E83.40 Disorders of magnesium metabolism, unspecified
CPT/HCPCS: 36415; 80053; 80061; 83735; 85025; G0463

== ENCOUNTER → 2018-06-05 | Outpatient (CLI) | payer MEDICARE, BC ==
[2018-06-05 09:00] VITALS: BP 123/56
[2018-06-05 09:30] VITALS: BP 122/61
--- NOTE | 2018-06-05 09:30 | NUR ---
ONE WEEK POST STARTING OPSUMMIT. PT IS TOLERATING MEDICATION WELL WITH NO SIDE EFFECTS OBSERVED. VS WNL. PREVIOUS LABS REVIEWED WITH FOCUS ON LIPID PANEL RELATED TO CHOLESTEROL MEDICATION. PT HAS APPOINTMENT WITH DR PYLE ON JULY 11, 2018, AND WILL DISCUSS WITH MD AT THAT TIME. Discharge Instructions See e-MAR for any mediations given with this visit. Patient education given on disease process. Patient verbalized understanding. Previous labs reviewed. Patient discharged in stable condition with after care instructions and follow up appointment FOR CHF ON 06/21/18 AT 0930.
== END | disposition home or self-care (01) ==
LOC: CHF HDHVI 09:09
PROVIDERS: ATTEND Internal Medicine Cardiovascular Disease
DX: I27.21 Secondary pulmonary arterial hypertension (principal)
CPT/HCPCS: G0463

== ENCOUNTER → 2018-06-14 | Outpatient (CLI) | payer MEDICARE, BC ==
[~2018-06-14] MED LIST changes: +FUROSEMIDE 40 MG/4 ML VIAL IV ONE; +FUROSEMIDE 40 MG/4 ML VIAL ONE; +MAGNESIUM SULFATE 1GM/100ML 100 ML IV ONE
[2018-06-14 17:00] VITALS: BP 122/68
--- NOTE | 2018-06-14 17:00 | NUR ---
PRESENTED TO CLINIC WITH DIOGENES GASPING, STATING I FEEL DIZZY. INITIAL HEART RATE 130'S BY DYNAMAP PLETH.
[2018-06-14 18:00] VITALS: BP 146/80
--- NOTE | 2018-06-14 18:00 | NUR ---
EKG DONE. COMPARED TO PREVIOUS EKG. HEART RATE CAPTURED AT 80 SR. CLINIC PROVIDER CONSULTED AND ORDERS RECIEVED. MEDICATION ADMINISTRATION LASIX 40 MG IVP AT 1710 MAG RIDER 1 GRAM IVPB AT 1715 Addendum: 08/01/18 at 1257 by JAY JAY NIELSON RN RN ME MEDICATION ADDENDUM 1715 MAG RIDER 1 GRAM IVPB 1800 STOP TIME MAG RIDER Addendum: 08/01/18 at 1544 by JAY JAY NIELSON RN RN ME LATE ENTRY FOR 06/14/18 MAGNESIUM STOP TIME 1815
== END | disposition home or self-care (01) ==
LOC: CHF HDHVI 17:00
PROVIDERS: ATTEND Internal Medicine Cardiovascular Disease
DX: I11.0 Hypertensive heart disease with heart failure (principal); I50.42 Chronic combined systolic (congestive) and diastolic (congestive) heart failure; R06.02 Shortness of breath; I49.9 Cardiac arrhythmia, unspecified; I25.10 Atherosclerotic heart disease of native coronary artery without angina pectoris; R60.9 Edema, unspecified; I27.21 Secondary pulmonary arterial hypertension; E11.9 Type 2 diabetes mellitus without complications; E78.5 Hyperlipidemia, unspecified; E03.9 Hypothyroidism, unspecified
CPT/HCPCS: 93005; 96365; 96375; G0463; J1940; J3475

== ENCOUNTER → 2018-06-15 | Outpatient (CLI) | payer MEDICARE, BC ==
[~2018-06-15] VITALS: Ht 30.5 cm; Wt 0.5 kg
[~2018-06-15] MED LIST changes: +FUROSEMIDE 40 MG TAB ONE; +FUROSEMIDE 40 MG TAB PO ONE; -MAGNESIUM SULFATE 1GM/100ML 100 ML IV ONE; +POTASSIUM CHL 10 Meq TABLET PO ONE; +POTASSIUM CHL 20 Meq TABLET PO ONE
[2018-06-15 11:00] VITALS: BP 133/56
--- NOTE | 2018-06-15 11:40 | NUR ---
IN TO CLINIC S/P DYSPNEA AND SWELLING FROM YESTERDAY. MILD SOB WITH ACTIVITY TODAY. LUNGS CLEAR THROUGHOUT. ANKLE SWELLING STILL NOTED BUT LESS PREVALENT THAN YESTERDAY. REVIEWED MEDICATION AND CURRENT ORAL FLUID INTAKE. CLINIC PROVIDER CONSULTED. ORDERS RECIEVED. ORDERS CARRIED OUT. REDUCE ORAL INTAKE TO 2 LITER MAXIMUM IN 24 HOURS. VERBAL, WRITTEN AND DEMONSTRATION USED FOR TEACHING. REPEAT BACK INSTRUCTIONS OBTAINED. MEDICATION MANAGEMENT PLAN HOLD OPSUMMIT HOLD MID DAY DOSE OF ADEMPAS RTC 06/18/18 AT 10 AM Discharge Instructions See e-MAR for any mediations given with this visit. Patient education given on disease process. Patient verbalized understanding. Previous labs reviewed. Patient discharged in stable condition with after care instructions and follow up appointment. MEDICATION ADMINISTRATION LASIX 40 MG IVP AT 1108 POTASSIUM 30 MEQ PO AT 1118 LASIX 80 MG PO AT 1200 LASIX 40 MEQ PO AT 1200
[2018-06-15 12:01] VITALS: BP 133/56
[2018-06-15 15:51] LABS: Basophils # (auto) 0.1 uL; Hemoglobin 10.7 g/dL (12.2-16.2); Mean Corpuscular Hemoglobin 25.9 pg (28.0-32.0)
[2018-06-15 15:54] LABS: Basophils % (auto) 0.7 % (0.0-2.0); Eosinophils # (auto) 0.1 uL; Hematocrit 33.3 % (36.0-46.0); Lymphocytes % (auto) 15.7 % (10.0-50.0); Mean Corpuscular Hgb Conc. 32.2 g/dL (32.0-36.0); Mean Corpuscular Volume 80.7 fL (80.0-100.0); Monocytes # (auto) 0.5 uL; Monocytes % (auto) 8.1 % (0.0-12.0); Neutrophils % (auto) 74.5 % (37.0-80.0); Nucleated Red Blood Cells % 0.2 %; Platelet Count (auto) 321 10^3/uL (140-450); Red Blood Cells 4.13 10^6/uL (4.0-5.20); Red Cell Distribution Width 19.4 % (11.8-14.3); White Blood Cell 6.7 10^3/uL (4.4-10.8)
[2018-06-15 16:14] LABS: Albumin 3.6 g/dL (3.4-5.0); BUN/Creatinine Ratio 26.8; Calcium 10.2 mg/dL (8.5-10.1)
[2018-06-15 16:17] LABS: Bilirubin, Total 0.5 mg/dL (0.2-1.0); Total Protein 7.3 g/dL (6.4-8.2)
== END | disposition home or self-care (01) ==
LOC: CHF HDHVI 11:00
PROVIDERS: ATTEND Internal Medicine Cardiovascular Disease
DX: D64.9 Anemia, unspecified (principal); R09.02 Hypoxemia; R53.83 Other fatigue; R06.02 Shortness of breath; I25.10 Atherosclerotic heart disease of native coronary artery without angina pectoris; I27.21 Secondary pulmonary arterial hypertension; I10 Essential (primary) hypertension; R60.9 Edema, unspecified; E11.9 Type 2 diabetes mellitus without complications
CPT/HCPCS: 36415; 80053; 85025; 96374; G0463; J1940

== ENCOUNTER → 2018-06-18 | Outpatient (CLI) | payer MEDICARE, BC ==
[~2018-06-18] MED LIST changes: -FUROSEMIDE 40 MG TAB ONE; -FUROSEMIDE 40 MG TAB PO ONE; -FUROSEMIDE 40 MG/4 ML VIAL IV ONE; -FUROSEMIDE 40 MG/4 ML VIAL ONE; -POTASSIUM CHL 10 Meq TABLET PO ONE; -POTASSIUM CHL 20 Meq TABLET PO ONE
[2018-06-18 09:30] VITALS: BP 113/54
[2018-06-18 10:00] VITALS: BP 113/54
--- NOTE | 2018-06-18 10:00 | NUR ---
IN FOR PAH FOLLOWUP. WITHOUT DISTRESS OR DISCOMFORT. DENIES PAIN. VS WNL. AFFECT CHEERFUL. REPORTS FEELING BACK TO HER "NORMAL" NOW. WEIGHT IS WNL. MEDICATION REVIEW DONE BY CHANTALE PETERSEN. PT TO STOP OPSUMMIT PERMANENTLY DUE TO FLUID RETENTION. PT TO RESUME ADEMPAS AT HER CURRENT DOSE, 2MG PO TID. PLAN TO INCREASE ADEMPAS IN 1 MONTH TO DOSE OF 2.5 MG PO TID. LABS DRAWN AND SENT. Discharge Instructions See e-MAR for any mediations given with this visit. Patient education given on disease process. Patient verbalized understanding. Previous labs reviewed. Patient discharged in stable condition with after care instructions and follow up appointment.
[2018-06-18 11:52] LABS: Calcium 10.6 mg/dL (8.5-10.1); Magnesium 2.1 mg/dL (1.6-2.6); Potassium 3.9 mmol/L (3.5-5.1)
[2018-06-18 11:53] LABS: Basophils # (auto) 0.1 uL; Eosinophils % (auto) 0.9 % (0.0-7.0); Nucleated Red Blood Cells % 0.1 %; Red Cell Distribution Width 18.7 % (11.8-14.3); White Blood Cell 5.7 10^3/uL (4.4-10.8)
[2018-06-18 11:56] LABS: Basophils % (auto) 1.2 % (0.0-2.0); Eosinophils # (auto) 0.1 uL; Hematocrit 35.1 % (36.0-46.0); Hemoglobin 11.3 g/dL (12.2-16.2); Lymphocytes # (auto) 1.2 uL; Lymphocytes % (auto) 20.6 % (10.0-50.0); Mean Corpuscular Hemoglobin 25.9 pg (28.0-32.0); Mean Corpuscular Hgb Conc. 32.1 g/dL (32.0-36.0); Mean Corpuscular Volume 80.6 fL (80.0-100.0); Monocytes # (auto) 0.6 uL; Monocytes % (auto) 9.9 % (0.0-12.0); Neutrophils # (auto) 3.8 uL; Neutrophils % (auto) 67.4 % (37.0-80.0); Platelet Count (auto) 336 10^3/uL (140-450); Red Blood Cells 4.36 10^6/uL (4.0-5.20)
== END | disposition home or self-care (01) ==
LOC: CHF HDHVI 09:47
PROVIDERS: ATTEND Internal Medicine Cardiovascular Disease
DX: D64.9 Anemia, unspecified (principal); I10 Essential (primary) hypertension; E83.40 Disorders of magnesium metabolism, unspecified; I27.21 Secondary pulmonary arterial hypertension
CPT/HCPCS: 36415; 80048; 83735; 85025; G0463

== ENCOUNTER → 2018-07-05 | Outpatient (CLI) | payer MEDICARE, BC ==
[~2018-07-05] MED LIST changes: +CYANOCOBALAMIN (B-12) 1000 MCG/1 ML VIAL IM ONE; +CYANOCOBALAMIN (B-12) 1000 MCG/1 ML VIAL ONE
[2018-07-05 09:28] VITALS: BP 118/59
[2018-07-05 10:22] VITALS: BP 116/57
--- NOTE | 2018-07-05 10:22 | NUR ---
CHF CLINIC Discharge Instructions See e-MAR for any mediations given with this visit. Patient education given on disease process. Patient verbalized understanding. Previous labs reviewed. Patient discharged in stable condition with after care instructions and follow up appointment NEXT MONDAY. NOTE CARDIODYNAMICS PERFORMED BY DIANNA HUMPHREY AND REVIEWED WITH PATIENT BY RICKEY Lofton DELTOID ADMIN BY DIANNA HUMPHREY
[2018-07-05 12:46] LABS: Basophils # (auto) 0.1 uL; Eosinophils # (auto) 0.1 uL; Mean Corpuscular Hemoglobin 25.7 pg (28.0-32.0); Mean Corpuscular Hgb Conc. 31.8 g/dL (32.0-36.0); Monocytes # (auto) 0.5 uL
[2018-07-05 12:51] LABS: Basophils % (auto) 1.1 % (0.0-2.0); Eosinophils % (auto) 1.5 % (0.0-7.0); Hematocrit 33.6 % (36.0-46.0); Hemoglobin 10.7 g/dL (12.2-16.2); Lymphocytes # (auto) 1.1 uL; Lymphocytes % (auto) 18.7 % (10.0-50.0); Mean Corpuscular Volume 80.8 fL (80.0-100.0); Monocytes % (auto) 8.9 % (0.0-12.0); Neutrophils # (auto) 4.2 uL; Neutrophils % (auto) 69.8 % (37.0-80.0); Nucleated Red Blood Cells % 0.5 %; Platelet Count (auto) 317 10^3/uL (140-450); Red Blood Cells 4.16 10^6/uL (4.0-5.20); Red Cell Distribution Width 18.2 % (11.8-14.3)
[2018-07-05 13:07] LABS: Potassium 3.9 mmol/L (3.5-5.1)
== END | disposition home or self-care (01) ==
LOC: CHF HDHVI 09:30
PROVIDERS: ATTEND Internal Medicine Cardiovascular Disease
DX: D64.9 Anemia, unspecified (principal); R94.4 Abnormal results of kidney function studies; E87.6 Hypokalemia; E11.9 Type 2 diabetes mellitus without complications; R60.0 Localized edema; I27.21 Secondary pulmonary arterial hypertension; I10 Essential (primary) hypertension; I25.10 Atherosclerotic heart disease of native coronary artery without angina pectoris; E78.5 Hyperlipidemia, unspecified; E03.9 Hypothyroidism, unspecified
CPT/HCPCS: 36415; 82565; 83036; 84132; 84520; 85025; 93701; 96372; G0463; J3420

== ENCOUNTER → 2018-07-25 | Outpatient (CLI) | payer MEDICARE, BC ==
[~2018-07-25] MED LIST changes: -CYANOCOBALAMIN (B-12) 1000 MCG/1 ML VIAL IM ONE; -CYANOCOBALAMIN (B-12) 1000 MCG/1 ML VIAL ONE
== END | disposition home or self-care (01) ==
LOC: Rad HDHVI 10:50
PROVIDERS: ATTEND Internal Medicine Cardiovascular Disease
DX: I07.1 Rheumatic tricuspid insufficiency (principal); I34.0 Nonrheumatic mitral (valve) insufficiency; I50.43 Acute on chronic combined systolic (congestive) and diastolic (congestive) heart failure
CPT/HCPCS: 93306

== ENCOUNTER → 2018-07-26 | Outpatient (CLI) | payer MEDICARE, BC ==
[2018-07-26] VITALS (7 sets, daily range): BP systolic 112–150; BP diastolic 55–65
[~2018-07-26] VITALS: Ht 30.5 cm; Wt 73.0 kg
[~2018-07-26] MED LIST changes: +CYANOCOBALAMIN (B-12) 1000 MCG/1 ML VIAL IM ONE; +CYANOCOBALAMIN (B-12) 1000 MCG/1 ML VIAL ONE; +FUROSEMIDE 100 MG/10ML VIAL IV ONE; +FUROSEMIDE INJECTION 10 ML ONE; +POTASSIUM CHL 10 Meq TABLET PO ONE
--- NOTE | 2018-07-26 10:55 | NUR ---
IV insertion IV access obtained by Lupis PETERSEN, via clean sterile technique by inserting 22 gauge catheter at LFA after 1 attempt(s). IV secured properly. No trauma to site. Patient tolerated procedure well.
--- NOTE | 2018-07-26 11:00 | NUR ---
IN TO CLINIC FOR PAH FOLLOWUP. REPORTS FLUID OVERLOAD. NOTED TO HAVE SIGNIFICANT WEIGHT GAIN SINCE LAST VISIT WITH PERIPHERAL EDEMA NOTED. NO DYSPNEA, BUT PT DOES REPORT INCREASED FATIGUE WITH WEIGHT GAIN. LABS REVIEWED. CLINIC PROVIDER CONSULTED AND ORDERS RECIEVED AND INITIATED.
[2018-07-26] MEDS: SODIUM CHLORIDE 0.9% 100 ML IV SCH ×2 (11:10→12:11)
--- NOTE | 2018-07-26 11:10 | NUR ---
IV insertion IV access obtained, via clean sterile technique by inserting 22 gauge catheter at after attempt(s). IV secured properly. No trauma to site. Patient tolerated procedure well. START IV LASIX PER PROTOCOL.
--- NOTE | 2018-07-26 12:20 | NUR ---
UP TO VOID X 1. AWAKE AND ALERT IN CHAIR WITHOUT DISTRESS.
--- NOTE | 2018-07-26 14:00 | NUR ---
UP TO VOID MULTIPLE TIMES. PT REPORTS FEELING BETTER. NO DISTRESS NOTED.
--- NOTE | 2018-07-26 14:15 | NUR ---
Discharge Instructions See e-MAR for any mediations given with this visit. Patient education given on disease process. Patient verbalized understanding. Previous labs reviewed. Patient discharged in stable condition with after care instructions and follow up appointment. MEDICATIONS 1110 START TIME LASIX 30MG/HR X 3 HR 1410 STOP TIME LASIX 30MG/HR X 3 HR 1100 POTASSIUM 40 MEQ PO X 1 1130 VITAMIN B12 1000MCG IM X 1 LEFT DELTOID LOT #[id number] EXP 02/20
[2018-07-26 16:20] LABS: Calcium 10.4 mg/dL (8.5-10.1); Potassium 4.1 mmol/L (3.5-5.1)
[2018-07-26 16:21] LABS: Basophils # (auto) 0.1 uL; Eosinophils # (auto) 0.1 uL; Lymphocytes # (auto) 1.4 uL; Monocytes # (auto) 0.7 uL; Neutrophils # (auto) 6.1 uL; Red Blood Cells 4.38 10^6/uL (4.0-5.20); White Blood Cell 8.3 10^3/uL (4.4-10.8)
[2018-07-26 16:23] LABS: BUN/Creatinine Ratio 32.4; Magnesium 1.5 mg/dL (1.6-2.6)
[2018-07-26 16:24] LABS: Basophils % (auto) 0.9 % (0.0-2.0); Eosinophils % (auto) 0.8 % (0.0-7.0); Hematocrit 35.6 % (36.0-46.0); Hemoglobin 11.2 g/dL (12.2-16.2); Lymphocytes % (auto) 17.3 % (10.0-50.0); Mean Corpuscular Hemoglobin 25.6 pg (28.0-32.0); Mean Corpuscular Hgb Conc. 31.5 g/dL (32.0-36.0); Mean Corpuscular Volume 81.2 fL (80.0-100.0); Monocytes % (auto) 8.3 % (0.0-12.0); Neutrophils % (auto) 72.7 % (37.0-80.0); Nucleated Red Blood Cells % 0.4 %; Platelet Count (auto) 352 10^3/uL (140-450); Red Cell Distribution Width 17.5 % (11.8-14.3)
== END | disposition home or self-care (01) ==
LOC: CHF HDHVI 10:37
PROVIDERS: ATTEND Internal Medicine Cardiovascular Disease
DX: I11.0 Hypertensive heart disease with heart failure (principal); I50.42 Chronic combined systolic (congestive) and diastolic (congestive) heart failure; E83.40 Disorders of magnesium metabolism, unspecified; D64.9 Anemia, unspecified; R53.83 Other fatigue; I25.10 Atherosclerotic heart disease of native coronary artery without angina pectoris; E78.5 Hyperlipidemia, unspecified; E03.9 Hypothyroidism, unspecified; I27.21 Secondary pulmonary arterial hypertension; E11.9 Type 2 diabetes mellitus without complications
CPT/HCPCS: 36415; 80048; 83735; 83880; 85025; 96365; 96366; 96372; G0463; J1940; J3420

== ENCOUNTER → 2018-08-09 | Outpatient (CLI) | payer MEDICARE, BC ==
[~2018-08-09] MED LIST changes: -CYANOCOBALAMIN (B-12) 1000 MCG/1 ML VIAL IM ONE; -CYANOCOBALAMIN (B-12) 1000 MCG/1 ML VIAL ONE; -FUROSEMIDE 100 MG/10ML VIAL IV ONE; -FUROSEMIDE INJECTION 10 ML ONE; -POTASSIUM CHL 10 Meq TABLET PO ONE
[2018-08-09 09:10] VITALS: BP 125/50
[2018-08-09 10:15] VITALS: BP 116/61
--- NOTE | 2018-08-09 10:15 | NUR ---
IN TO CLINIC FOR PAH EVALUATION. CARDIODYNAMICS DONE AND REVIEWED. 6MWT DONE AND REVIEWED. CONTINUES ON ADEMPAS 2.5 MG PO TID. TOLERATING WELL REPORTS FEELING WELL WITHOUT DISTRESS OR DISCOMFORT. DISCHARGED TO SELF CARE AND PT PLANNING OUT OF STATE TRAVEL FOR A SICK FAMILY MEMBER. FOLLOW UP PLANNED UPON RETURN. DATE UNKNOWN AT THIS TIME.
== END | disposition home or self-care (01) ==
LOC: CHF HDHVI 09:18
PROVIDERS: ATTEND Internal Medicine Cardiovascular Disease
DX: I25.10 Atherosclerotic heart disease of native coronary artery without angina pectoris (principal); I27.21 Secondary pulmonary arterial hypertension
CPT/HCPCS: 93701; 94618; G0463

== ENCOUNTER → 2018-09-06 | Outpatient (CLI) | payer MEDICARE, BC ==
[~2018-09-06] MED LIST changes: +CYANOCOBALAMIN (B-12) 1000 MCG/1 ML VIAL IM ONE; +CYANOCOBALAMIN (B-12) 1000 MCG/1 ML VIAL ONE; +FUROSEMIDE 40 MG/4 ML VIAL IV ONE; +FUROSEMIDE 40 MG/4 ML VIAL ONE; +POTASSIUM CHL 10 Meq TABLET PO ONE
[2018-09-06 10:45] VITALS: BP 141/77
--- NOTE | 2018-09-06 10:45 | NUR ---
CHF PT ARRIVED AT CHF CLINIC FOR PAH FOLLOW UP TX/EVAL. CARDIODYNAMICS COMPLETED V/S STABLE 0 DISTRESS
--- NOTE | 2018-09-06 10:50 | NUR ---
Clinic Provider Clinic Provider UPDATED ON pt STATUS with new orders received and carried out.
[2018-09-06 11:50] VITALS: BP 130/68
--- NOTE | 2018-09-06 11:50 | NUR ---
PAH FOLLOWUP. LABS DRAWN AND SENT. FACIAL SWELLING AND ABDOMINAL SWELLING NOTED. ALSO REPORTS FATIGUE. MEDICATED PER ORDER. TOLERATED WELL. DISCHARGED TO SELF CARE WITHOUT DISTRESS AND WITHOUT DISCOMFORT. Discharge Instructions See e-MAR for any mediations given with this visit. Patient education given on disease process. Patient verbalized understanding. Previous labs reviewed. Patient discharged in stable condition with after care instructions and follow up appointment FOR 09/19/18 AT 10 AM MEDICATION ADMINISTRATION LASIX 40 MG IVP AT 1100 KDUR 20 MEQ PO AT 1105 VIT B12 1000 MCG IM TO RIGHT DELTOID AT 1130
[2018-09-06 15:59] LABS: Basophils # (auto) 0.1 uL; Eosinophils # (auto) 0.1 uL; Lymphocytes # (auto) 1.2 uL; Nucleated Red Blood Cells % 0.1 %
[2018-09-06 16:01] LABS: Basophils % (auto) 1.1 % (0.0-2.0); Mean Corpuscular Hemoglobin 26.1 pg (28.0-32.0); Mean Corpuscular Hgb Conc. 32.4 g/dL (32.0-36.0); Mean Corpuscular Volume 80.5 fL (80.0-100.0); Monocytes # (auto) 0.5 uL; Monocytes % (auto) 9.2 % (0.0-12.0); Neutrophils % (auto) 68.7 % (37.0-80.0); Platelet Count (auto) 320 10^3/uL (140-450); Red Blood Cells 4.22 10^6/uL (4.0-5.20); Red Cell Distribution Width 18.1 % (11.8-14.3); White Blood Cell 5.9 10^3/uL (4.4-10.8)
[2018-09-06 16:11] LABS: Potassium 4.4 mmol/L (3.5-5.1)
[2018-09-06 16:13] LABS: BUN/Creatinine Ratio 37.5
== END | disposition home or self-care (01) ==
LOC: CHF HDHVI 10:20
PROVIDERS: ATTEND Internal Medicine Cardiovascular Disease
DX: I27.21 Secondary pulmonary arterial hypertension (principal); I11.0 Hypertensive heart disease with heart failure; I50.42 Chronic combined systolic (congestive) and diastolic (congestive) heart failure; I25.10 Atherosclerotic heart disease of native coronary artery without angina pectoris; E83.40 Disorders of magnesium metabolism, unspecified; D64.9 Anemia, unspecified; E78.5 Hyperlipidemia, unspecified; E03.9 Hypothyroidism, unspecified; E11.9 Type 2 diabetes mellitus without complications
CPT/HCPCS: 36415; 80048; 82306; 83735; 85025; 93701; 96372; 96374; G0463; J1940; J3420

== ENCOUNTER → 2018-09-19 | Outpatient (CLI) | payer MEDICARE, BC ==
[~2018-09-19] MED LIST changes: -CYANOCOBALAMIN (B-12) 1000 MCG/1 ML VIAL IM ONE; -CYANOCOBALAMIN (B-12) 1000 MCG/1 ML VIAL ONE; -FUROSEMIDE 40 MG/4 ML VIAL IV ONE; -FUROSEMIDE 40 MG/4 ML VIAL ONE; -POTASSIUM CHL 10 Meq TABLET PO ONE
[2018-09-19 10:08] VITALS: BP 114/50
[2018-09-19 11:20] VITALS: BP 128/59
--- NOTE | 2018-09-19 11:20 | NUR ---
IN TO CLINIC FOR PAH ASSESSMENT AND FOLLOWUP. WITHOUT COMPLAINT. VS WNL. DIABETIC TEACHING REGARDING GLUCOSE MANAGEMENT DONE BY YASMANY PETERSEN. PT VERBALIZES GOOD UNDERSTANDING. PAH TEACHING BY CHANTALE RN. Discharge Instructions See e-MAR for any mediations given with this visit. Patient education given on disease process. Patient verbalized understanding. Previous labs reviewed. Patient discharged in stable condition with after care instructions and follow up appointment FOR 10/17/18
== END | disposition home or self-care (01) ==
LOC: CHF HDHVI 10:04
PROVIDERS: ATTEND Internal Medicine Cardiovascular Disease
DX: I27.21 Secondary pulmonary arterial hypertension (principal)
CPT/HCPCS: G0463

== ENCOUNTER → 2018-10-17 | Outpatient (CLI) | payer MEDICARE, BC ==
[~2018-10-17] MED LIST changes: +CHOL135C10 OR; -CHOL135C6 OR; +CYANOCOBALAMIN (B-12) 1000 MCG/1 ML VIAL IM ONE; +CYANOCOBALAMIN (B-12) 1000 MCG/1 ML VIAL ONE; +LANS30CA57 PO; -LANS30CA63 PO
[2018-10-17 10:00] VITALS: BP 110/65
[2018-10-17 11:16] VITALS: BP 132/71
--- NOTE | 2018-10-17 11:16 | NUR ---
IN TO CLINIC FOR PAH FOLLOWUP. AWAKE AND ALERT WITHOUT DISTRESS. NO OXYGEN IN USE. VS WNL. CARDIODYNAMICS DONE AND REVIEWED. 6 MWT DONE AND REVIEWED. CLINIC PROVIDER CONSULTED AND ORDERS RECIEVED. NEW MEDICATION UPTRAVI RECIEVED AND 1ST DOSE TO BE STARTED TODAY. PT REPORTS MUSCLE ACHES RECENTLY, DENIES PAIN CURRENTLY. PHYSICIAN REDUCED ADEMPAS TO 2.0 MG PO TID (FROM 2.5 PO TID) AND TO START UPTRAVI AT 200 MG PO BID. LABS DRAWN AND SENT. Discharge Instructions See e-MAR for any mediations given with this visit. Patient education given on disease process. Patient verbalized understanding. Previous labs reviewed. Patient discharged in stable condition with after care instructions and follow up appointment IN 2 WEEKS ON 10/31/18. MEDICATION ADMINISTRATION VIT B12 1000 MCG IM TO LEFT DELTOID AT 1115 REDUCE ADEMPAS TO 2.0 MG PO TID START UPTRAVI 200 MG PO BID, 1ST DOSE TODAY.
[2018-10-17 12:06] LABS: Basophils # (auto) 0.1 uL; Eosinophils # (auto) 0.1 uL; Hemoglobin 11.4 g/dL (12.2-16.2); Monocytes # (auto) 0.7 uL
[2018-10-17 12:08] LABS: Eosinophils % (auto) 1.1 % (0.0-7.0); Hematocrit 35.4 % (36.0-46.0); Lymphocytes # (auto) 1.6 uL; Lymphocytes % (auto) 23.6 % (10.0-50.0); Mean Corpuscular Hemoglobin 25.8 pg (28.0-32.0); Mean Corpuscular Hgb Conc. 32.1 g/dL (32.0-36.0); Mean Corpuscular Volume 80.1 fL (80.0-100.0); Monocytes % (auto) 9.8 % (0.0-12.0); Neutrophils # (auto) 4.3 uL; Neutrophils % (auto) 64.5 % (37.0-80.0); Nucleated Red Blood Cells % 0.1 %; Platelet Count (auto) 335 10^3/uL (140-450); Red Blood Cells 4.41 10^6/uL (4.0-5.20); Red Cell Distribution Width 17.9 % (11.8-14.3); White Blood Cell 6.7 10^3/uL (4.4-10.8)
[2018-10-17 12:51] LABS: Albumin 3.8 g/dL (3.4-5.0); BUN/Creatinine Ratio 27.5; Calcium 10.7 mg/dL (8.5-10.1); Potassium 4.6 mmol/L (3.5-5.1)
[2018-10-17 12:54] LABS: Bilirubin, Total 0.5 mg/dL (0.2-1.0); Total Protein 7.9 g/dL (6.4-8.2)
== END | disposition home or self-care (01) ==
LOC: CHF HDHVI 10:08
PROVIDERS: ATTEND Internal Medicine Cardiovascular Disease
DX: I27.21 Secondary pulmonary arterial hypertension (principal); I11.0 Hypertensive heart disease with heart failure; I50.42 Chronic combined systolic (congestive) and diastolic (congestive) heart failure; D64.9 Anemia, unspecified; I25.10 Atherosclerotic heart disease of native coronary artery without angina pectoris; E78.5 Hyperlipidemia, unspecified; E03.9 Hypothyroidism, unspecified; E11.9 Type 2 diabetes mellitus without complications
CPT/HCPCS: 36415; 80053; 85025; 96372; G0463; J3420

== ENCOUNTER → 2018-10-31 | Outpatient (CLI) | payer MEDICARE, BC ==
[~2018-10-31] MED LIST changes: -CYANOCOBALAMIN (B-12) 1000 MCG/1 ML VIAL IM ONE; -CYANOCOBALAMIN (B-12) 1000 MCG/1 ML VIAL ONE; +MVI in SODIUM CHLORIDE 0.9% 1,010 ML ONE; +MVI in SODIUM CHLORIDE 0.9% 500 ML IVB ONE; +ONDANSETRON HCL 4 MG/2 ML VIAL IV ONE; +ONDANSETRON HCL 4 MG/2 ML VIAL ONE; +methylPREDNISolone SOD SUCC 40 MG/ML VL IV ONE; +methylPREDNISolone SOD SUCC 40 MG/ML VL ONE
--- NOTE | 2018-10-31 10:35 | NUR ---
in to clinic for report of extreme fatigue and head congestion after an episode of food poisioning with n/v and diarrhea 3 days ago. pt waiting to see md dr arora.
--- NOTE | 2018-10-31 11:30 | NUR ---
BACK FROM SEEING PHYSICIAN. ORDERS RECIEVED.
--- NOTE | 2018-10-31 11:40 | NUR ---
IV insertion IV access obtained, via clean sterile technique by inserting 22 gauge catheter at after attempt(s). IV secured properly. No trauma to site. Patient tolerated procedure well. START IVF PER ORDER.
--- NOTE | 2018-10-31 11:50 | NUR ---
DR GONZALEZ IN ATTENDANCE. MEDICATED PER ORDER FOR NAUSEA.
--- NOTE | 2018-10-31 13:32 | NUR ---
EATING LUNCH. TOLERATING WELL.
--- NOTE | 2018-10-31 13:50 | NUR ---
IV removal IV DC'd with sterile technique, catheter fully intact. Pressure dressing applied to site. Patient tolerated procedure well. Discharged with aftercare instructions per MD. NOTE:
[2018-10-31 13:55] VITALS: BP 124/55
--- NOTE | 2018-10-31 13:55 | NUR ---
Discharge Instructions See e-MAR for any mediations given with this visit. Patient education given on disease process. Patient verbalized understanding. Previous labs reviewed. Patient discharged in stable condition with after care instructions and follow up appointment. MEDICATIONS MVI 0.9NS IV @ 250ML/HR [id number] ZOFRAN 4MG IVP X 1 SOLUMEDROL 40MG IVP X 1
== END | disposition home or self-care (01) ==
LOC: CHF HDHVI 10:34
PROVIDERS: ATTEND Internal Medicine Cardiovascular Disease
DX: E86.0 Dehydration (principal); I27.21 Secondary pulmonary arterial hypertension; I11.0 Hypertensive heart disease with heart failure; I50.42 Chronic combined systolic (congestive) and diastolic (congestive) heart failure; R53.83 Other fatigue; I25.10 Atherosclerotic heart disease of native coronary artery without angina pectoris; E78.5 Hyperlipidemia, unspecified; E03.9 Hypothyroidism, unspecified; E11.9 Type 2 diabetes mellitus without complications
CPT/HCPCS: 96365; 96366; 96375; G0463; J2405; J2920; J3411; J3475

== ENCOUNTER → 2018-11-01 | Outpatient (CLI) | payer MEDICARE, BC ==
[~2018-11-01] MED LIST changes: +MVI in SODIUM CHLORIDE 0.9% 1,000 ML IVB ONE; -MVI in SODIUM CHLORIDE 0.9% 500 ML IVB ONE; -methylPREDNISolone SOD SUCC 40 MG/ML VL IV ONE; -methylPREDNISolone SOD SUCC 40 MG/ML VL ONE
--- NOTE | 2018-11-01 10:37 | NUR ---
IV insertion IV access obtained, via clean sterile technique by inserting 22 gauge catheter at after attempt(s). IV secured properly. No trauma to site. Patient tolerated procedure well.
[2018-11-01 10:47] VITALS: BP 111/47
--- NOTE | 2018-11-01 13:15 | NUR ---
IV removal IV DC'd with sterile technique, catheter fully intact. Pressure dressing applied to site. Patient tolerated procedure well. Discharged with aftercare instructions per MD. NOTE:
[2018-11-01 13:27] VITALS: BP 143/69
--- NOTE | 2018-11-01 13:27 | NUR ---
Discharge Instructions See e-MAR for any mediations given with this visit. Patient education given on disease process. Patient verbalized understanding. Previous labs reviewed. Patient discharged in stable condition with after care instructions and follow up appointment. MEDICATIONS MVI BAG 500 ML [id number] Addendum: 11/01/18 at 1708 by JAY JAY NIELSON RN RN IA ZOFRAN 4MG IVP X 1
== END | disposition home or self-care (01) ==
LOC: CHF HDHVI 09:39
PROVIDERS: ATTEND Internal Medicine Cardiovascular Disease
DX: I11.0 Hypertensive heart disease with heart failure (principal); I50.42 Chronic combined systolic (congestive) and diastolic (congestive) heart failure; I25.10 Atherosclerotic heart disease of native coronary artery without angina pectoris; I27.21 Secondary pulmonary arterial hypertension; E03.9 Hypothyroidism, unspecified; E78.5 Hyperlipidemia, unspecified; E11.9 Type 2 diabetes mellitus without complications
CPT/HCPCS: 96365; 96366; 96375; G0463; J2405; J3411; J3475

== ENCOUNTER → 2018-11-14 | Outpatient (CLI) | payer MEDICARE, BC ==
[~2018-11-14] MED LIST changes: -MVI in SODIUM CHLORIDE 0.9% 1,000 ML IVB ONE; -MVI in SODIUM CHLORIDE 0.9% 1,010 ML ONE; -ONDANSETRON HCL 4 MG/2 ML VIAL IV ONE; -ONDANSETRON HCL 4 MG/2 ML VIAL ONE
[2018-11-14 12:36] LABS: BUN/Creatinine Ratio 25.7; Calcium 10.8 mg/dL (8.5-10.1); Potassium 4.5 mmol/L (3.5-5.1)
== END | disposition home or self-care (01) ==
LOC: LAB 09:27
PROVIDERS: ATTEND Internal Medicine
DX: I27.0 Primary pulmonary hypertension (principal); E11.9 Type 2 diabetes mellitus without complications
CPT/HCPCS: 36415; 80048; 83036

== ENCOUNTER → 2018-12-06 | Outpatient (CLI) | payer MEDICARE, BC ==
[~2018-12-06] MED LIST changes: +CYANOCOBALAMIN (B-12) 1000 MCG/1 ML VIAL IM ONE; +CYANOCOBALAMIN (B-12) 1000 MCG/1 ML VIAL ONE
--- NOTE | 2018-12-06 13:00 | NUR ---
IN TO CLINIC AT 1020 FOR PAH FOLLOWUP. PT REPORTS FATIGUE AND INCREASED SHORTNESS OF BREATH WITH DECREASED TOLERANCE FOR ACTIVITY. VS WNL. PT ALSO REPORTS INCREASED BILATERAL GLUTEAL PAIN, ESPECIALLY PROMINENT IN THE MORNING. PT HAS BEEN TAKING NSAID BID TO ATTEMPT TO RELIEVE THE DISCOMFORT, BUT REPORTS NO DECREASE IN THE PAIN. REVIEWED DIABETIC MANAGEMENT, SLEEP PATTERNS, STRESS, DIET MANAGEMENT AND NO OTHER SOURCE ATTRIBUTED. COMPLETE MEDICATION REVIEW DONE WITH DRUG INTERACTION CHECKED AND DISCUSSED WITH PHARMACY. 6MWT DONE AND REVIEWED. CARDIODYNAMICS DONE AND REVIEWED. PREVIOUS LABS REVIEWED. CLINIC PROVIDER CONSULTED. DR PYLE APPOINTMENT SCHeDULED FOR 12/12/18 . DISCHARGeD TO SELF CARE IN NO DISTRESS AT TIME OF DISCHARGe. MEDICATION ADMINISTRATION VIT B12 1000 MCG IM TO LEFT DELTOID
[2018-12-06 15:59] LABS: Basophils # (auto) 0.1 uL; Mean Corpuscular Hemoglobin 26.5 pg (28.0-32.0); Nucleated Red Blood Cells % 0.1 %
[2018-12-06 16:03] LABS: Basophils % (auto) 1.3 % (0.0-2.0); Eosinophils # (auto) 0 uL; Eosinophils % (auto) 0.7 % (0.0-7.0); Lymphocytes # (auto) 1.1 uL; Lymphocytes % (auto) 16.7 % (10.0-50.0); Mean Corpuscular Hgb Conc. 32.3 g/dL (32.0-36.0); Monocytes # (auto) 0.6 uL; Monocytes % (auto) 9.6 % (0.0-12.0); Neutrophils # (auto) 4.9 uL; Neutrophils % (auto) 71.7 % (37.0-80.0); Platelet Count (auto) 329 10^3/uL (140-450); Red Blood Cells 4.15 10^6/uL (4.0-5.20); Red Cell Distribution Width 17.2 % (11.8-14.3); White Blood Cell 6.8 10^3/uL (4.4-10.8)
[2018-12-06 16:11] LABS: Albumin 3.5 g/dL (3.4-5.0); Calcium 9.7 mg/dL (8.5-10.1); Magnesium 2.3 mg/dL (1.6-2.6); Potassium 4.2 mmol/L (3.5-5.1)
[2018-12-06 16:14] LABS: BUN/Creatinine Ratio 23.9
[2018-12-06 16:24] LABS: Bilirubin, Total 0.3 mg/dL (0.2-1.0)
== END | disposition home or self-care (01) ==
LOC: CHF HDHVI 10:23
PROVIDERS: ATTEND Internal Medicine Cardiovascular Disease
DX: I27.21 Secondary pulmonary arterial hypertension (principal); I11.0 Hypertensive heart disease with heart failure; I50.42 Chronic combined systolic (congestive) and diastolic (congestive) heart failure; I25.10 Atherosclerotic heart disease of native coronary artery without angina pectoris; D64.9 Anemia, unspecified; R53.83 Other fatigue; G89.29 Other chronic pain; R06.00 Dyspnea, unspecified; E78.5 Hyperlipidemia, unspecified; E03.9 Hypothyroidism, unspecified; E11.9 Type 2 diabetes mellitus without complications
CPT/HCPCS: 36415; 80053; 83735; 85025; 93701; 94618; 96372; G0463; J3420

== ENCOUNTER → 2018-12-12 | Outpatient (CLI) | payer MEDICARE, BC ==
[~2018-12-12] MED LIST changes: -CYANOCOBALAMIN (B-12) 1000 MCG/1 ML VIAL IM ONE; -CYANOCOBALAMIN (B-12) 1000 MCG/1 ML VIAL ONE
--- NOTE | 2018-12-12 10:41 | NUR ---
PT. TO CLINIC PER ORDERS. PT. HAS AN APPT. WITH DR. PYLE TODAY AND IS LEAVING FOR VACATION TOMORROW. MED REC TO BE DISCUSSED WITH DR. PYLE BY THIS RN AT APPT.. PT. STATES NO CHANGE WITH THE REDUCTION OF UPTRAVI 200MCG IN AM AND 400MCG IN PM. HEMODYNAMICALLY, PT. IS DOING GOOD, EXCEPT SLIGHTLY HIGH HR. VSS. PT. TO WAITING ROOM PENDING EXAM BY DR. PYLE.
[2018-12-12 11:00] VITALS: BP 138/73
--- NOTE | 2018-12-12 12:15 | NUR ---
THIS RN TO BACK OFFICE FOR ASSIST. WITH DR. PYLE ON PT. STATUS WITH PAH AND OTHER COMPLAINTS OF GLUTEAL PAIN THAT SHE HAD PRIOR TO STARTING UPTRAVI. DR. PYLE ADVISED OF MOST RECENT CHANGE IN 6MWT WITH DECREASE OF [address] PYLE ORDERED UPTRAVI DECREASED TO 200MCG BID. DC TRIBENZOR AND FENOFIBRATE. NEW RX FOR TOPROL XL 50MG Q DAY GIVEN TO PT. BY DR. PYLE.
[2018-12-12 13:00] VITALS: BP 122/70
--- NOTE | 2018-12-12 13:00 | NUR ---
Discharge Instructions See e-MAR for any mediations given with this visit. Patient education given on disease process. Patient verbalized understanding. Previous labs reviewed. Patient discharged in stable condition with after care instructions and follow up appointment.
== END | disposition home or self-care (01) ==
LOC: CHF HDHVI 10:54
PROVIDERS: ATTEND Internal Medicine Cardiovascular Disease
DX: I10 Essential (primary) hypertension (principal); I27.21 Secondary pulmonary arterial hypertension
CPT/HCPCS: G0463

== ENCOUNTER → 2018-12-26 | Outpatient (CLI) | payer MEDICARE, BC ==
[~2018-12-26] MED LIST changes: +FUROSEMIDE 40 MG/4 ML VIAL IV ONE; +FUROSEMIDE 40 MG/4 ML VIAL ONE; +POTASSIUM CHL 10 Meq TABLET PO ONE; +POTASSIUM CHL 20 Meq TABLET PO ONE
[2018-12-26 15:04] VITALS: BP 163/99
--- NOTE | 2018-12-26 15:04 | NUR ---
CHF PT ARRIVED AT THE CHF CLINIC FOR F/U AFTER VACATION/ VSS BILATERAL LOWER EDEMA NOTED PATIENT ALSO HAS APPOINTMENT WITH MD PYLE
--- NOTE | 2018-12-26 15:30 | NUR ---
Clinic Provider Clinic Provider into see pt with new orders received and carried out.
[2018-12-26 16:23] VITALS: BP 156/72
--- NOTE | 2018-12-26 16:23 | NUR ---
Discharge Instructions See e-MAR for any mediations given with this visit. Patient education given on disease process. Patient verbalized understanding. Previous labs reviewed. Patient discharged in stable condition with after care instructions and follow up appointment. MEDS LASIX IVP POTASSIUM PO
== END | disposition home or self-care (01) ==
LOC: CHF HDHVI 15:05
PROVIDERS: ATTEND Internal Medicine Cardiovascular Disease
DX: I27.21 Secondary pulmonary arterial hypertension (principal); I11.0 Hypertensive heart disease with heart failure; I50.42 Chronic combined systolic (congestive) and diastolic (congestive) heart failure; E11.9 Type 2 diabetes mellitus without complications; R60.0 Localized edema; I25.10 Atherosclerotic heart disease of native coronary artery without angina pectoris; E78.5 Hyperlipidemia, unspecified; E03.9 Hypothyroidism, unspecified; G89.29 Other chronic pain
CPT/HCPCS: 96374; G0463; J1940

== ENCOUNTER → 2018-12-31 | Outpatient (CLI) | payer MEDICARE, BC ==
[~2018-12-31] MED LIST changes: -FUROSEMIDE 40 MG/4 ML VIAL IV ONE; -FUROSEMIDE 40 MG/4 ML VIAL ONE; -POTASSIUM CHL 10 Meq TABLET PO ONE; -POTASSIUM CHL 20 Meq TABLET PO ONE
== END | disposition home or self-care (01) ==
LOC: Rad HDHVI 11:04
PROVIDERS: ATTEND Internal Medicine Cardiovascular Disease
DX: R22.40 Localized swelling, mass and lump, unspecified lower limb (principal); I35.0 Nonrheumatic aortic (valve) stenosis; E78.5 Hyperlipidemia, unspecified; I10 Essential (primary) hypertension
CPT/HCPCS: 93926

== ENCOUNTER → 2019-01-02 | Outpatient (CLI) | payer MEDICARE, BC ==
[~2019-01-02] MED LIST changes: +CYANOCOBALAMIN (B-12) 1000 MCG/1 ML VIAL IM ONE; +CYANOCOBALAMIN (B-12) 1000 MCG/1 ML VIAL ONE; +KETOROLAC TROMETH 60MG/2ML VIAL IM ONE; +KETOROLAC TROMETH 60MG/2ML VIAL ONE
[2019-01-02 09:37] VITALS: BP 104/69
--- NOTE | 2019-01-02 09:37 | NUR ---
IN TO CLINIC WITH REPORT OF FATIGUE AND EXTREME WEAKNESS X 5 DAYS. PT STATES "I FEEL ANEMIC". PREVIOUS LABS REVIEWED AND ADDITIONAL LABS DRAWN AND SENT. PT DYSPNEIC ON ARRIVAL, ALTHOUGH SPO2 WNL WHEN CHECKED. REVIEWED DIABETIC MANAGEMENT AND MEDICATION MANAGEMENT. PT REPORTS GOOD DIABETIC MANAGEMENT. PT DOES REPORT A CHANGE IN HER BLOOD PRESSURE MEDICATION APPROXIMATELY 10 DAYS AGO. CURRENTLY TAKING TRIBENZOR 1/2 TABLET EVERY DAY, AND STOPPED METOPROLOL ER. NOTED TO HAVE LOWER BP THAN NORMAL NOW, BP 104/69.
[2019-01-02 11:04] LABS: Albumin 3.7 g/dL (3.4-5.0); BUN/Creatinine Ratio 30.1; Basophils # (auto) 0.1 uL; Calcium 10.1 mg/dL (8.5-10.1); Eosinophils # (auto) 0.1 uL; Hemoglobin 11.2 g/dL (12.2-16.2); Magnesium 2.3 mg/dL (1.6-2.6); Potassium 4.5 mmol/L (3.5-5.1)
[2019-01-02 11:07] LABS: Basophils % (auto) 1.6 % (0.0-2.0); Eosinophils % (auto) 1.1 % (0.0-7.0); Hematocrit 33.4 % (36.0-46.0); Lymphocytes # (auto) 1.4 uL; Lymphocytes % (auto) 20.3 % (10.0-50.0); Mean Corpuscular Hemoglobin 25.7 pg (28.0-32.0); Mean Corpuscular Hgb Conc. 33.6 g/dL (32.0-36.0); Mean Corpuscular Volume 76.5 fL (80.0-100.0); Monocytes # (auto) 0.6 uL; Monocytes % (auto) 9.3 % (0.0-12.0); Neutrophils # (auto) 4.7 uL; Neutrophils % (auto) 67.7 % (37.0-80.0); Nucleated Red Blood Cells % 0.1 %; Platelet Count (auto) 370 10^3/uL (140-450); Red Blood Cells 4.36 10^6/uL (4.0-5.20); Red Cell Distribution Width 16.3 % (11.8-14.3)
[2019-01-02 11:13] LABS: Bilirubin, Total 0.6 mg/dL (0.2-1.0); Total Protein 7.9 g/dL (6.4-8.2)
[2019-01-02 11:50] VITALS: BP 129/59
--- NOTE | 2019-01-02 11:50 | NUR ---
CBC EVALUATED AND WNL. CXR DONE AND SENT. PT INSTRUCTED TO HOLD TRIBENZOR STARTING IN AM, AND TO START METOPROLOL IN 1-2 DAYS ONCE HER BP IS GREATER THAN 120 SYSTOLIC. REPEAT BACK INSTRUCTIONS OBTAINED. PT HAS APPOINTMENT WITH DR PYLE ON 01/09/19. INSTRUCTED TO RETURN TO CLINIC FOR ANY ISSUES OR WORSENING FATIGUE. DISCHARGED TO SELF CARE IN NO DISTRESS. MEDICATION ADMINISTRATION VIT B12 1000 MCG IM TO LEFT GLUT AT 1013 TORADOL 30 MG IM TO RIGHT GLUT AT 1013
== END | disposition home or self-care (01) ==
LOC: CHF HDHVI 09:44
PROVIDERS: ATTEND Internal Medicine Cardiovascular Disease
DX: I27.21 Secondary pulmonary arterial hypertension (principal); I11.0 Hypertensive heart disease with heart failure; I50.42 Chronic combined systolic (congestive) and diastolic (congestive) heart failure; I25.10 Atherosclerotic heart disease of native coronary artery without angina pectoris; E03.9 Hypothyroidism, unspecified; K90.9 Intestinal malabsorption, unspecified; D51.9 Vitamin B12 deficiency anemia, unspecified; R53.1 Weakness; R53.83 Other fatigue; R06.02 Shortness of breath; K44.9 Diaphragmatic hernia without obstruction or gangrene; E78.5 Hyperlipidemia, unspecified; G89.29 Other chronic pain; E11.9 Type 2 diabetes mellitus without complications
CPT/HCPCS: 36415; 71046; 80053; 82607; 83735; 83880; 84443; 85025; 96372; G0463; J1885; J3420

== ENCOUNTER → 2019-01-08 | Outpatient (CLI) | payer MEDICARE, BC ==
[~2019-01-08] MED LIST changes: -CYANOCOBALAMIN (B-12) 1000 MCG/1 ML VIAL IM ONE; -CYANOCOBALAMIN (B-12) 1000 MCG/1 ML VIAL ONE; -KETOROLAC TROMETH 60MG/2ML VIAL IM ONE; -KETOROLAC TROMETH 60MG/2ML VIAL ONE; +MVI in SODIUM CHLORIDE 0.9% 1,010 ML ONE; +MVI in SODIUM CHLORIDE 0.9% 500 ML IVB ONE
--- NOTE | 2019-01-08 11:15 | NUR ---
in to clinic for followup from previous labs. pt reports feeling better. her bp is NORMOTENSIVE CURRENTLY. PREVIOUS LABS REVIEWED AND CLINIC PROVIDER CONSULTED AND ORDERS RECIEVED. IV insertion IV access obtained, via clean sterile technique by inserting 22 gauge catheter at after attempt(s). IV secured properly. No trauma to site. Patient tolerated procedure well.
--- NOTE | 2019-01-08 11:34 | NUR ---
START MVI BAG HYDRATION
[2019-01-08 12:46] LABS: Potassium 4.4 mmol/L (3.5-5.1)
[2019-01-08 13:10] VITALS: BP 164/74
--- NOTE | 2019-01-08 13:10 | NUR ---
LABS RETURNED. REVIEWED ALL LABS. IV TO LEFT AC DCD AND PT DISCHARGED TO SELF CARE IN NO DISTRESS.
== END | disposition home or self-care (01) ==
LOC: CHF HDHVI 11:24
PROVIDERS: ATTEND Internal Medicine Cardiovascular Disease
DX: I27.21 Secondary pulmonary arterial hypertension (principal); R53.1 Weakness; R53.83 Other fatigue; I11.0 Hypertensive heart disease with heart failure; I50.42 Chronic combined systolic (congestive) and diastolic (congestive) heart failure; I25.10 Atherosclerotic heart disease of native coronary artery without angina pectoris; N28.9 Disorder of kidney and ureter, unspecified; R94.4 Abnormal results of kidney function studies; E87.6 Hypokalemia; E78.5 Hyperlipidemia, unspecified; E03.9 Hypothyroidism, unspecified; G89.29 Other chronic pain; E11.9 Type 2 diabetes mellitus without complications
CPT/HCPCS: 36415; 82565; 84132; 84520; 96365; 96366; G0463; J3411; J3475

== ENCOUNTER → 2019-01-09 | Outpatient (CLI) | payer MEDICARE, BC ==
[~2019-01-09] MED LIST changes: -MVI in SODIUM CHLORIDE 0.9% 1,010 ML ONE; -MVI in SODIUM CHLORIDE 0.9% 500 ML IVB ONE
== END | disposition home or self-care (01) ==
LOC: Rad HDHVI 15:01
PROVIDERS: ATTEND Internal Medicine Cardiovascular Disease
DX: K57.30 Diverticulosis of large intestine without perforation or abscess without bleeding (principal); M48.061 Spinal stenosis, lumbar region without neurogenic claudication; M43.16 Spondylolisthesis, lumbar region; M12.88 Other specific arthropathies, not elsewhere classified, other specified site
CPT/HCPCS: 72131; 72192

== ENCOUNTER → 2019-02-05 | Outpatient (CLI) | payer MEDICARE, BC ==
[~2019-02-05] MED LIST changes: +CYANOCOBALAMIN (B-12) 1000 MCG/1 ML VIAL IM ONE; +CYANOCOBALAMIN (B-12) 1000 MCG/1 ML VIAL ONE; +KETOROLAC TROMETH 30 MG/ML 1ML VIAL IM ONE; +KETOROLAC TROMETH 60MG/2ML VIAL ONE
[2019-02-05 10:15] VITALS: BP 130/55
[2019-02-05 11:05] VITALS: BP 131/62
--- NOTE | 2019-02-05 11:05 | NUR ---
CHF CLINIC Discharge Instructions See e-MAR for any mediations given with this visit. Patient education given on disease process. Patient verbalized understanding. Previous labs reviewed. Patient discharged in stable condition with after care instructions and follow up appointment. NOTE B12 IM L DELTOID ADMIN BY DIANNA HUMPHREY TORADOL IM R GLUTE ADMIN BY DIANNA HUMPHREY CARDIODYNAMICS PERFORMED BY DIANNA HUMPHREY AND REVIEWED WITH PATIENT BY RICKEY PETERSEN. 6MWT PATIENT DOWN 90 METERS. INCREASED UPTRAVI TO 400MG BID.
[2019-02-05 15:26] LABS: Basophils # (auto) 0.1 uL; Basophils % (auto) 0.8 % (0.0-2.0); Eosinophils # (auto) 0.1 uL; Eosinophils % (auto) 1.3 % (0.0-7.0); Hematocrit 34.3 % (36.0-46.0); Lymphocytes # (auto) 1.3 uL; Lymphocytes % (auto) 15.7 % (10.0-50.0); Mean Corpuscular Hemoglobin 24.5 pg (28.0-32.0); Mean Corpuscular Hgb Conc. 32.2 g/dL (32.0-36.0); Mean Corpuscular Volume 76.3 fL (80.0-100.0); Monocytes # (auto) 0.8 uL; Monocytes % (auto) 9.1 % (0.0-12.0); Neutrophils # (auto) 6.1 uL; Neutrophils % (auto) 73.1 % (37.0-80.0); Nucleated Red Blood Cells % 0.1 %; Platelet Count (auto) 311 10^3/uL (140-450); Red Cell Distribution Width 16.4 % (11.8-14.3); White Blood Cell 8.3 10^3/uL (4.4-10.8)
[2019-02-05 15:33] LABS: Albumin 3.7 g/dL (3.4-5.0); Calcium 9.4 mg/dL (8.5-10.1); Magnesium 1.9 mg/dL (1.6-2.6); Potassium 4.4 mmol/L (3.5-5.1)
[2019-02-05 15:39] LABS: Bilirubin, Total 0.5 mg/dL (0.2-1.0); Total Protein 7.5 g/dL (6.4-8.2)
== END | disposition home or self-care (01) ==
LOC: CHF HDHVI 10:17
PROVIDERS: ATTEND Internal Medicine Cardiovascular Disease
DX: I27.21 Secondary pulmonary arterial hypertension (principal); I11.0 Hypertensive heart disease with heart failure; I50.42 Chronic combined systolic (congestive) and diastolic (congestive) heart failure; I25.10 Atherosclerotic heart disease of native coronary artery without angina pectoris; E83.40 Disorders of magnesium metabolism, unspecified; K90.9 Intestinal malabsorption, unspecified; M25.559 Pain in unspecified hip; R53.83 Other fatigue; E78.5 Hyperlipidemia, unspecified; E03.9 Hypothyroidism, unspecified; G89.29 Other chronic pain; E11.9 Type 2 diabetes mellitus without complications
CPT/HCPCS: 36415; 80053; 82306; 83735; 85025; 93701; 94618; 96372; G0463; J1885; J3420

== ENCOUNTER → 2019-02-20 | Outpatient (CLI) | payer MEDICARE, BC ==
[~2019-02-20] MED LIST changes: -CYANOCOBALAMIN (B-12) 1000 MCG/1 ML VIAL IM ONE; -CYANOCOBALAMIN (B-12) 1000 MCG/1 ML VIAL ONE; -KETOROLAC TROMETH 30 MG/ML 1ML VIAL IM ONE; -KETOROLAC TROMETH 60MG/2ML VIAL ONE
[2019-02-20 13:30] VITALS: BP 125/56
--- NOTE | 2019-02-20 13:30 | NUR ---
PATIENT CAME IN FOR CHECK UP FOLLOWING INCREASE IN UPTRAVI TO 400MG BID.
[2019-02-20 14:45] VITALS: BP 114/53
--- NOTE | 2019-02-20 14:45 | NUR ---
CHF CLINIC Discharge Instructions See e-MAR for any mediations given with this visit. Patient education given on disease process. Patient verbalized understanding. Previous labs reviewed. Patient discharged in stable condition with after care instructions and follow up appointment. NOTE CARDIODYNAMICS REVIEWED WITH PATIENT BY RICKEY PETERSEN
== END | disposition home or self-care (01) ==
LOC: CHF HDHVI 13:47
PROVIDERS: ATTEND Internal Medicine Cardiovascular Disease
DX: I27.21 Secondary pulmonary arterial hypertension (principal)
CPT/HCPCS: 93701; G0463

== ENCOUNTER → 2019-03-06 | Outpatient (CLI) | payer MEDICARE, BC ==
--- NOTE | 2019-03-06 13:55 | NUR ---
PT. TO PAH CLINIC FOR REPEAT CARDIODYNAMICS. PT. FEELING MUCH BETTER PYHSICALLY IN PAST 2 WEEKS EXCEPT FOR HEAD COLD FOR PAST 2 DAYS, NOT GETTING BETTER. MD ORDERS RECEIVED AND CARRIED OUT.
[2019-03-06 14:00] VITALS: BP 146/66
--- NOTE | 2019-03-06 14:15 | NUR ---
CARDIODYNAMICS DONE WITH MUCH IMPROVEMENT IN SVR AND C.O. FROM 2 WEEKS AGO. RESULTS REVIEWED WITH PT. AND CHARTED.
[2019-03-06 14:35] VITALS: BP 140/64
--- NOTE | 2019-03-06 14:35 | NUR ---
Discharge Instructions See e-MAR for any mediations given with this visit. Patient education given on disease process. Patient verbalized understanding. Previous labs reviewed. Patient discharged in stable condition with after care instructions and follow up appointment. NEW RX FOR Z-PACK CALLED INTO PT'S PHARMACY PER DR. PYLE, WITH INSTRUCTIONS FOR PT. TO CALL THIS RN ON MONDAY AM ON PT. STATUS.
== END | disposition home or self-care (01) ==
LOC: CHF HDHVI 13:57
PROVIDERS: ATTEND Internal Medicine Cardiovascular Disease
DX: I25.10 Atherosclerotic heart disease of native coronary artery without angina pectoris (principal); I27.0 Primary pulmonary hypertension
CPT/HCPCS: 93701; G0463

== ENCOUNTER → 2019-03-20 | Outpatient (CLI) | payer MEDICARE, BC ==
[~2019-03-20] VITALS: Ht 30.5 cm; Wt 72.0 kg
[~2019-03-20] MED LIST changes: +CYANOCOBALAMIN (B-12) 1000 MCG/1 ML VIAL IM ONE; +CYANOCOBALAMIN (B-12) 1000 MCG/1 ML VIAL ONE
[2019-03-20 10:02] VITALS: BP 124/57
[2019-03-20 10:45] VITALS: BP 118/56
--- NOTE | 2019-03-20 10:45 | NUR ---
CHF Clinic Discharge Instructions See e-MAR for any mediations given with this visit. Patient education given on disease process. Patient verbalized understanding. Previous labs reviewed. Patient discharged in stable condition with after care instructions and follow up appointment. Note B12 IM L DELTOID ADMIN BY DIANNA HUMPHREY CARDIODYNAMICS PERFORMED BY DIANNA HUMPHREY AND REVIEWED WITH THE PATIENT BY RICKEY PETERSEN.
[2019-03-20 12:16] LABS: Potassium 4.3 mmol/L (3.5-5.1)
[2019-03-20 12:24] LABS: Albumin 3.7 g/dL (3.4-5.0); BUN/Creatinine Ratio 33.3; Bilirubin, Total 0.5 mg/dL (0.2-1.0); Calcium 9.6 mg/dL (8.5-10.1); Total Protein 7.8 g/dL (6.4-8.2)
== END | disposition home or self-care (01) ==
LOC: CHF HDHVI 10:03
PROVIDERS: ATTEND Internal Medicine Cardiovascular Disease
DX: I27.21 Secondary pulmonary arterial hypertension (principal); I11.0 Hypertensive heart disease with heart failure; I50.42 Chronic combined systolic (congestive) and diastolic (congestive) heart failure; I25.10 Atherosclerotic heart disease of native coronary artery without angina pectoris; E83.40 Disorders of magnesium metabolism, unspecified; R53.83 Other fatigue; E11.9 Type 2 diabetes mellitus without complications; E78.5 Hyperlipidemia, unspecified; E03.9 Hypothyroidism, unspecified; G89.29 Other chronic pain; Z79.899 Other long term (current) drug therapy
CPT/HCPCS: 36415; 80053; 83036; 83735; 93701; 96372; G0463; J3420

== ENCOUNTER → 2019-04-17 | Outpatient (CLI) | payer MEDICARE, BC ==
[~2019-04-17] VITALS: Ht 30.5 cm; Wt 71.4 kg
[2019-04-17 10:07] VITALS: BP 128/61
[2019-04-17 10:50] VITALS: BP 128/64
--- NOTE | 2019-04-17 10:50 | NUR ---
CHF CLINIC Discharge Instructions See e-MAR for any mediations given with this visit. Patient education given on disease process. Patient verbalized understanding. Previous labs reviewed. Patient discharged in stable condition with after care instructions and follow up appointment. NOTE B12 IM L DELTOID ADMIN BY DIANNA HUMPHREY CARDIODYNAMICS REVIEWED WITH PATIENT BY RICKEY PETERSEN 6MWT DONE BY DIANNA HUMPHREY PATIENT UP 150M FROM LAST TEST. F/U ON 05/15/19
== END | disposition home or self-care (01) ==
LOC: CHF HDHVI 10:04
PROVIDERS: ATTEND Internal Medicine Cardiovascular Disease
DX: I27.21 Secondary pulmonary arterial hypertension (principal); I11.0 Hypertensive heart disease with heart failure; I50.42 Chronic combined systolic (congestive) and diastolic (congestive) heart failure; I25.10 Atherosclerotic heart disease of native coronary artery without angina pectoris; R53.83 Other fatigue; E78.5 Hyperlipidemia, unspecified; M25.559 Pain in unspecified hip; E11.9 Type 2 diabetes mellitus without complications; E03.9 Hypothyroidism, unspecified; G89.29 Other chronic pain; Z79.899 Other long term (current) drug therapy
CPT/HCPCS: 93701; 94618; 96372; G0463; J3420

== ENCOUNTER → 2019-05-15 | Outpatient (CLI) | payer MEDICARE, BC ==
[~2019-05-15] MED LIST changes: -CYANOCOBALAMIN (B-12) 1000 MCG/1 ML VIAL IM ONE; -CYANOCOBALAMIN (B-12) 1000 MCG/1 ML VIAL ONE
[2019-05-15 10:55] VITALS: BP 123/53
[2019-05-15 11:40] VITALS: BP 123/53
--- NOTE | 2019-05-15 11:40 | NUR ---
Discharge Instructions See e-MAR for any mediations given with this visit. Patient education given on disease process. Patient verbalized understanding. Previous labs reviewed. Patient discharged in stable condition with after care instructions and follow up appointment. CARDIODYNAMICS DONE BY JEANNETTE HUMPHREY AND REVIEWED BY JENAE PETERSEN. PT CURRENTLY ON UPTRAVI 400 MG BID AND OPSUMIT 10MG Q DAY. CARDIODYNAMICS RESULTS SHOW DECREASED CARDIAC INDEX DOWN AND SVR UP. PT FEELS OKAY HAD A ROUGH WEEKEND AT THE [facility] AND REPORTS A TEAR IN HER HIP BUT ORTHOS DOCTOR ASSESSING THE SITUATION. PT WILL COME TO CLINIC IF SHE FEELS WORSE. WILL REPEAT CARDIODYNAMICS IN A MONTH AND REASSESS PAH MEDICATIONS
[2019-05-15 15:59] LABS: Basophils # (auto) 0.1 uL; Eosinophils # (auto) 0.1 uL; Mean Corpuscular Volume 70.5 fL (80.0-100.0); Monocytes # (auto) 0.7 uL; Neutrophils # (auto) 5.8 uL
[2019-05-15 16:02] LABS: Basophils % (auto) 0.9 % (0.0-2.0); Eosinophils % (auto) 0.7 % (0.0-7.0); Hematocrit 35.9 % (36.0-46.0); Hemoglobin 11.4 g/dL (12.2-16.2); Lymphocytes # (auto) 1.5 uL; Lymphocytes % (auto) 18.2 % (10.0-50.0); Mean Corpuscular Hemoglobin 22.3 pg (28.0-32.0); Mean Corpuscular Hgb Conc. 31.6 g/dL (32.0-36.0); Monocytes % (auto) 8.5 % (0.0-12.0); Neutrophils % (auto) 71.7 % (37.0-80.0); Nucleated Red Blood Cells % 0.2 %; Platelet Count (auto) 379 10^3/uL (140-450); Red Cell Distribution Width 19.5 % (11.8-14.3); White Blood Cell 8.1 10^3/uL (4.4-10.8)
[2019-05-15 16:08] LABS: Albumin 3.7 g/dL (3.4-5.0); Calcium 10.2 mg/dL (8.5-10.1); Magnesium 2.5 mg/dL (1.6-2.6); Potassium 4.5 mmol/L (3.5-5.1)
[2019-05-15 16:13] LABS: BUN/Creatinine Ratio 43.5; Bilirubin, Total 0.5 mg/dL (0.2-1.0); Total Protein 7.9 g/dL (6.4-8.2)
== END | disposition home or self-care (01) ==
LOC: CHF HDHVI 11:09
PROVIDERS: ATTEND Internal Medicine Cardiovascular Disease
DX: I50.9 Heart failure, unspecified (principal); Z79.899 Other long term (current) drug therapy
CPT/HCPCS: 36415; 80053; 82607; 83735; 83880; 85025; 93701; G0463

== ENCOUNTER → 2019-06-12 | Outpatient (CLI) | payer MEDICARE, BC ==
[~2019-06-12] MED LIST changes: +CYANOCOBALAMIN (B-12) 1000 MCG/1 ML VIAL IM ONE; +CYANOCOBALAMIN (B-12) 1000 MCG/1 ML VIAL ONE
[2019-06-12 10:44] VITALS: BP 135/61
--- NOTE | 2019-06-12 10:44 | NUR ---
CHF PT ARRIVED TO THE CHF CLINIC FOR MONTHLY PAH F/U. A/O X4 VSS. PT STATED NO CHANGE SINCE LAST VISIT. PT CURRENTLY TAKING UPTRAVI 4MG BID AND ADEMPAS 2MG TID
[2019-06-12 11:09] VITALS: BP 123/53
--- NOTE | 2019-06-12 11:09 | NUR ---
Discharge Instructions See e-MAR for any mediations given with this visit. Patient education given on disease process. Patient verbalized understanding. Previous labs reviewed. Patient discharged in stable condition with after care instructions and follow up appointment. ON 07/10/19 AT 1PM NOTE VIT B12 IM GIVEN BY ALFRED WEBER
[2019-06-12 15:51] LABS: Basophils # (auto) 0.1 10 ^3/uL (0-0.2); Eosinophils # (auto) 0.1 10 ^3/uL (0-0.8); Eosinophils % (auto) 0.7 % (0.0-7.0); Lymphocytes # (auto) 1.6 10 ^3/uL (0.4-5.4); Nucleated Red Blood Cells % 0.1 %
[2019-06-12 15:53] LABS: Hematocrit 35.5 % (36.0-46.0); Mean Corpuscular Hemoglobin 22.2 pg (28.0-32.0); Mean Corpuscular Hgb Conc. 31.1 g/dL (32.0-36.0); Mean Corpuscular Volume 71.4 fL (80.0-100.0); Monocytes # (auto) 0.6 10 ^3/uL (0-1.3); Monocytes % (auto) 8.1 % (0.0-12.0); Neutrophils % (auto) 68.2 % (37.0-80.0); Platelet Count (auto) 329 10^3/uL (140-450); Red Blood Cells 4.97 10^6/uL (4.0-5.20); White Blood Cell 7.3 10^3/uL (4.4-10.8)
[2019-06-12 15:56] LABS: Red Cell Distribution Width 20.5 % (11.8-14.3)
[2019-06-12 16:02] LABS: BUN/Creatinine Ratio 43.5; Calcium 9.9 mg/dL (8.5-10.1); Magnesium 2.2 mg/dL (1.6-2.6); Potassium 4.1 mmol/L (3.5-5.1)
== END | disposition home or self-care (01) ==
LOC: CHF HDHVI 10:45
PROVIDERS: ATTEND Internal Medicine Cardiovascular Disease
DX: D64.9 Anemia, unspecified (principal); Z79.899 Other long term (current) drug therapy
CPT/HCPCS: 36415; 80048; 83735; 85025; 93306; 96372; G0463; J3420

== ENCOUNTER → 2019-09-05 | Outpatient (CLI) | payer MEDICARE, BC ==
[~2019-09-05] MED LIST changes: -CYANOCOBALAMIN (B-12) 1000 MCG/1 ML VIAL IM ONE; -CYANOCOBALAMIN (B-12) 1000 MCG/1 ML VIAL ONE
== END | disposition home or self-care (01) ==
LOC: XY 09:54
PROVIDERS: ATTEND Internal Medicine Cardiovascular Disease
DX: M71.21 Synovial cyst of popliteal space [Baker], right knee (principal); M54.5 Low back pain; M25.559 Pain in unspecified hip; M25.50 Pain in unspecified joint
CPT/HCPCS: 93926

== ENCOUNTER → 2020-01-17 | Outpatient (CLI) | payer MEDICARE, BC ==
[~2020-01-17] MED LIST changes: +CYANOCOBALAMIN (B-12) 1000 MCG/1 ML VIAL IM ONE; +CYANOCOBALAMIN (B-12) 1000 MCG/1 ML VIAL ONE
[2020-01-17 10:38] VITALS: BP 147/56
--- NOTE | 2020-01-17 10:38 | NUR ---
Patient in for monthly PAH appt, AAOx4, ambulatory, breathing even and unlabored.
--- NOTE | 2020-01-17 11:08 | NUR ---
Discharge Instructions See e-MAR for any mediations given with this visit. Patient education given on disease process. Patient verbalized understanding. Previous labs reviewed. Patient discharged in stable condition with after care instructions and follow up appointment. Note b12 IM L deltoid admin by Laya HUMPHREY
[2020-01-17 11:23] VITALS: BP 145/64
[2020-01-17 12:06] LABS: Basophils # (auto) 0.1 10 ^3/uL (0-0.2); Basophils % (auto) 0.8 % (0.0-2.0); Eosinophils # (auto) 0.1 10 ^3/uL (0-0.8); Eosinophils % (auto) 1.8 % (0.0-7.0); Hematocrit 35.3 % (36.0-46.0); Lymphocytes # (auto) 1.3 10 ^3/uL (0.4-5.4); Lymphocytes % (auto) 17.2 % (10.0-50.0); Mean Corpuscular Hemoglobin 23.3 pg (28.0-32.0); Mean Corpuscular Hgb Conc. 31.1 g/dL (32.0-36.0); Monocytes # (auto) 0.7 10 ^3/uL (0-1.3); Monocytes % (auto) 9.3 % (0.0-12.0); Neutrophils # (auto) 5.5 10 ^3/uL (1.6-8.6); Neutrophils % (auto) 70.9 % (37.0-80.0); Nucleated Red Blood Cells % 0.1 %; Platelet Count (auto) 338 10^3/uL (140-450); Red Blood Cells 4.71 10^6/uL (4.0-5.20); Red Cell Distribution Width 18.6 % (11.8-14.3); White Blood Cell 7.8 10^3/uL (4.4-10.8)
[2020-01-17 12:07] LABS: Urine Blood Negative /uL (Negative); Urine Specific Gravity 1.006 (1.001-1.035)
[2020-01-17 12:15] LABS: Potassium 4.3 mmol/L (3.5-5.1)
[2020-01-17 12:24] LABS: Albumin 3.6 g/dL (3.4-5.0); BUN/Creatinine Ratio 25.8; Bilirubin, Total 0.5 mg/dL (0.2-1.0); Magnesium 2.4 mg/dL (1.6-2.6); Total Protein 7.9 g/dL (6.4-8.2)
--- NOTE | 2020-01-17 16:10 | NUR ---
PATIENT CALLED REGARDING LOW BLOOD PRESSURE AND WANTING TO KNOW IF SHE SHOULD HOLD HER BLOOD PRESSURE MEDICATION, PATIENT STATED THAT HER BLOOD PRESSURE WAS 148/55 AND 140/60. EXPLAINED TO PATIENT THAT HER BLOOD PRESSURE WAS NOT LOW AND TO CONTINUE TAKING HER MEDICATION, ASKED PATIENT TO COME INTO CLINIC NEXT MONDAY TO GO OVER HER MEDICATION AND GIVE HER EDUCATION ON BLOOD PRESSURE AND WHEN TO HOLD HER MEDICATIONS, PATIENT VERBALIZED UNDERSTANDING AND AGREED TO COME INTO CLINIC.
== END | disposition home or self-care (01) ==
LOC: CHF HDHVI 10:34
PROVIDERS: ATTEND Internal Medicine Cardiovascular Disease
DX: I27.0 Primary pulmonary hypertension (principal); R53.83 Other fatigue; R06.02 Shortness of breath; Z79.899 Other long term (current) drug therapy
CPT/HCPCS: 36415; 80053; 81003; 82306; 82607; 83735; 85025; 96372; G0463; J3420

== ENCOUNTER → 2020-01-28 | Outpatient (CLI) | payer MEDICARE, BC ==
[~2020-01-28] VITALS: Ht 152.4 cm; Wt 72.6 kg
[~2020-01-28] MED LIST changes: +AMIO100T3 OR; +AMIO400T7 PO; -CYANOCOBALAMIN (B-12) 1000 MCG/1 ML VIAL IM ONE; -CYANOCOBALAMIN (B-12) 1000 MCG/1 ML VIAL ONE; +MAGN100T6 PO; +MELO1TAB73 PO; +METO25TA5 PO; +POM; +POTA10TA51 PO; +RIOC1TAB7 PO; +RIVA10TA PO; +TORS20TA20 PO
[2020-01-28 11:27] VITALS: BP 139/60
--- NOTE | 2020-01-28 11:27 | NUR ---
CLINIC PT ARRIVED TO THE CHF CLINIC FOR PRE OP FOR CARDIOVERSION RE AFIB ON 02/04/20. A/O X4, AMBULATORY, BREATHING IS EVEN AND UNLABORED.
--- NOTE | 2020-01-28 11:49 | NUR ---
EKG DONE BY JEANNETTE HUMPHREY REVIEWED BY ALFRED PETERSEN SB 55 NO ECTOPY
[2020-01-28 11:59] VITALS: BP 134/47
--- NOTE | 2020-01-28 11:59 | NUR ---
Pre-Op Discharge Summary: See e-MAR for any medications given for this visit. Pre-op orders received and carried out per MD of EKG, LABS and chest xrays. Patient given a copy of EKG with instructions to go to [facility] out patient for further follow up care. NOTE EKG DONE BY JEANNETTE HUMPHREY REVIEWED BY ALFRED PETERSEN
[2020-01-28 12:07] LABS: Basophils # (auto) 0.1 10 ^3/uL (0-0.2); Hemoglobin 10.9 g/dL (12.2-16.2); Monocytes # (auto) 0.7 10 ^3/uL (0-1.3); Neutrophils # (auto) 4.8 10 ^3/uL (1.6-8.6); Nucleated Red Blood Cells % 0.1 %; White Blood Cell 7.9 10^3/uL (4.4-10.8)
[2020-01-28 12:08] LABS: Basophils % (auto) 1.2 % (0.0-2.0); Eosinophils # (auto) 0.3 10 ^3/uL (0-0.8); Eosinophils % (auto) 3.6 % (0.0-7.0); Hematocrit 34.3 % (36.0-46.0); Lymphocytes % (auto) 24.8 % (10.0-50.0); Mean Corpuscular Hemoglobin 23.6 pg (28.0-32.0); Mean Corpuscular Hgb Conc. 31.7 g/dL (32.0-36.0); Mean Corpuscular Volume 74.4 fL (80.0-100.0); Monocytes % (auto) 9.5 % (0.0-12.0); Neutrophils % (auto) 60.9 % (37.0-80.0); Platelet Count (auto) 404 10^3/uL (140-450); Red Blood Cells 4.61 10^6/uL (4.0-5.20)
[2020-01-28 12:16] LABS: Potassium 4.2 mmol/L (3.5-5.1)
[2020-01-28 12:21] LABS: INR 1.42 (0.9-1.15); Partial Thromboplastin Time 34.4 sec (23.0-31.2)
[2020-01-28 12:27] LABS: BUN/Creatinine Ratio 19.9; Calcium 8.5 mg/dL (8.5-10.1)
== END | disposition home or self-care (01) ==
LOC: Rad HDHVI 11:09
PROVIDERS: ATTEND Internal Medicine Cardiovascular Disease
DX: Z01.812 Encounter for preprocedural laboratory examination (principal); Z01.818 Encounter for other preprocedural examination; I70.0 Atherosclerosis of aorta; I51.7 Cardiomegaly; K44.9 Diaphragmatic hernia without obstruction or gangrene; M85.80 Other specified disorders of bone density and structure, unspecified site; I48.91 Unspecified atrial fibrillation; M40.295 Other kyphosis, thoracolumbar region
CPT/HCPCS: 36415; 71046; 80048; 85025; 85610; 85730; 93005; G0463

== ENCOUNTER 2020-02-04 11:31 | Day surgery (SDC) | payer MEDICARE, BC ==
[~2020-02-04] VITALS: Ht 152.4 cm; Wt 72.6 kg
[~2020-02-04 11:31] MED LIST changes: -CHLO50TA PO; -CHOL135C10 OR; -CHOL1TAB42 PO; -CHOL20002 PO; -CLON0.1T PO; -OLMETAB3 OR
[2020-02-04] MEDS ORDERED: MIDAZOLAM HCL 1MG/1ML-2 ML VIAL IV ONE (12:45)
[2020-02-04] MEDS ORDERED: fentaNYL CITRATE 100 MCG/2 ML VL IV ONE (12:45)
[2020-02-04] MEDS ORDERED: diphenhdrAMINE HCL 50 MG/1 ML VL IV ONE (12:45)
== END 2020-02-04 14:22 | disposition home or self-care (01) ==
LOC: CATH 11:31
PROVIDERS: ATTEND Internal Medicine Cardiovascular Disease
DX: R53.83 Other fatigue (principal); I48.91 Unspecified atrial fibrillation; I10 Essential (primary) hypertension; I25.10 Atherosclerotic heart disease of native coronary artery without angina pectoris; D68.59 Other primary thrombophilia; I49.5 Sick sinus syndrome; Z87.891 Personal history of nicotine dependence; Z88.1 Allergy status to other antibiotic agents; Z88.8 Allergy status to other drugs, medicaments and biological substances; Z79.899 Other long term (current) drug therapy; Z98.890 Other specified postprocedural states; Z20.828 Contact with and (suspected) exposure to other viral communicable diseases
CPT/HCPCS: 93005; U0003; J2250

== ENCOUNTER → 2020-02-13 | Outpatient (CLI) | payer MEDICARE, BC ==
[~2020-02-13] MED LIST changes: +ACETAMINOPHEN 500 MG TAB PO ONE; +AMIO200T33 PO; +FUROSEMIDE INJECTION 0 ML ONE; +FUROSEMIDE INJECTION 10 ML ONE; +POTASSIUM CHL 10 Meq TABLET PO ONE; +POTASSIUM CHL 20 Meq TABLET PO ONE
[2020-02-13] MEDS: FUROSEMIDE INJECTION 100 MG in D5W 5% 100 ML IV SCH (09:42)
[2020-02-13 10:11] LABS: Basophils # (auto) 0.1 10 ^3/uL (0-0.2); Eosinophils # (auto) 0.1 10 ^3/uL (0-0.8); Monocytes # (auto) 0.9 10 ^3/uL (0-1.3); Nucleated Red Blood Cells % 0.1 %
[2020-02-13 10:13] LABS: Basophils % (auto) 0.8 % (0.0-2.0); Eosinophils % (auto) 1.3 % (0.0-7.0); Hemoglobin 9.7 g/dL (12.2-16.2); Lymphocytes % (auto) 11.8 % (10.0-50.0); Mean Corpuscular Hemoglobin 22.8 pg (28.0-32.0); Mean Corpuscular Hgb Conc. 31.3 g/dL (32.0-36.0); Monocytes % (auto) 11.2 % (0.0-12.0); Neutrophils % (auto) 74.9 % (37.0-80.0); Platelet Count (auto) 297 10^3/uL (140-450); Red Blood Cells 4.25 10^6/uL (4.0-5.20); Red Cell Distribution Width 17.6 % (11.8-14.3)
[2020-02-13 10:21] LABS: Anion Gap 7 (5-15); Blood Urea Nitrogen 25 mg/dL (7-18); Carbon Dioxide 25 mmol/L (21-32); Chloride 109 mmol/L (98-107); Glucose 122 mg/dL (74-106); Magnesium 2.2 mg/dL (1.6-2.6); Potassium 3.9 mmol/L (3.5-5.1); Sodium 141 mmol/L (136-145)
[2020-02-13 10:27] LABS: BUN/Creatinine Ratio 19.2; GFR African American 50 mL/min; GFR Non-African American 41 mL/min
[2020-02-13 10:28] LABS: INR 1.14 (0.9-1.15); Partial Thromboplastin Time 28.7 sec (23.0-31.2)
[2020-02-13 15:45] VITALS: BP 131/47
== END | disposition home or self-care (01) ==
LOC: CHF HDHVI 09:14
PROVIDERS: ATTEND Internal Medicine Cardiovascular Disease
DX: R06.02 Shortness of breath (principal); I11.0 Hypertensive heart disease with heart failure; I50.30 Unspecified diastolic (congestive) heart failure; R53.83 Other fatigue; E87.5 Hyperkalemia; I25.10 Atherosclerotic heart disease of native coronary artery without angina pectoris; I48.0 Paroxysmal atrial fibrillation; I27.21 Secondary pulmonary arterial hypertension; M81.0 Age-related osteoporosis without current pathological fracture; M19.90 Unspecified osteoarthritis, unspecified site; Z99.81 Dependence on supplemental oxygen; Z87.891 Personal history of nicotine dependence; Z79.899 Other long term (current) drug therapy
CPT/HCPCS: 36415; 71046; 80048; 83036; 83735; 83880; 84484; 85025; 85610; 85730; 93005; 96365; 96366; G0463; J1940; J7060; 96375

== ENCOUNTER → 2020-02-14 | Outpatient (CLI) | payer MEDICARE, BC ==
[~2020-02-14] VITALS: Ht 30.5 cm; Wt 0.5 kg
[~2020-02-14] MED LIST changes: +FUROSEMIDE 100 MG/10ML VIAL IV ONE; -FUROSEMIDE INJECTION 0 ML ONE
[2020-02-14 10:40] VITALS: BP 138/52
--- NOTE | 2020-02-14 10:40 | NUR ---
PATIENT SENT FROM MD SIDE WITH ORDERS ENTERED, PATIENT TO BE SCHEDULED FOR PACEMAKER ON 02/20/20
--- NOTE | 2020-02-14 10:59 | NUR ---
IV insertion IV access obtained, via clean sterile technique by inserting 22 gauge catheter at LAC after 1 attempt(s). IV secured properly. No trauma to site. Patient tolerated procedure well.
--- NOTE | 2020-02-14 13:07 | NUR ---
IV removal IV DC'd with sterile technique, catheter fully intact. Pressure dressing applied to site. Patient tolerated procedure well.
--- NOTE | 2020-02-14 13:15 | NUR ---
PATIENT SCHEDULED FOR PPI ON 02/20/20, ALL LABS, CXR, AND EKG DONE YESTERDAY, WILL FAX EKG RESULTS TO [facility].
[2020-02-14 13:32] VITALS: BP 141/48
--- NOTE | 2020-02-14 13:32 | NUR ---
Discharge Instructions See e-MAR for any mediations given with this visit. Patient education given on disease process. Patient verbalized understanding. Previous labs reviewed. Patient discharged in stable condition with after care instructions and follow up appointment. NOTE LASIX [id number] ADMIN BY ALFRED PETERSEN POTASSIUM PO ADMIN BY RICKEY PETERSEN TYLENOL PO ADMIN BY RICKEY PETERSEN
--- NOTE | 2020-02-14 14:10 | NUR ---
EKG FAXED TO [facility] FOR PREOP.
== END | disposition home or self-care (01) ==
LOC: CHF HDHVI 10:39
PROVIDERS: ATTEND Internal Medicine Cardiovascular Disease
DX: E87.6 Hypokalemia (principal); R51.9 Headache, unspecified; I11.0 Hypertensive heart disease with heart failure; I50.9 Heart failure, unspecified; I25.10 Atherosclerotic heart disease of native coronary artery without angina pectoris; I48.91 Unspecified atrial fibrillation; Z79.899 Other long term (current) drug therapy; Z87.891 Personal history of nicotine dependence
CPT/HCPCS: 96365; 96366; G0463; J1940

== ENCOUNTER 2020-02-20 10:05 | Inpatient (IN) | payer MEDICARE, BC ==
[~2020-02-20] VITALS: Ht 152.4 cm; Wt 69.2 kg
[~2020-02-20 10:05] MED LIST changes: -ACETAMINOPHEN 500 MG TAB PO ONE; -AMIO100T3 OR; -AMIO400T7 PO; -ASPI81CH43 PO; -FUROSEMIDE 100 MG/10ML VIAL IV ONE; -FUROSEMIDE INJECTION 10 ML ONE; -POTASSIUM CHL 10 Meq TABLET PO ONE; -POTASSIUM CHL 20 Meq TABLET PO ONE
[2020-02-20] MEDS ORDERED: VANCOMYCIN 1GM/250ML 250 ML IV ONE (11:00)
[2020-02-20] MEDS ORDERED: VANCOMYCIN HCL 1000 MG VL ONE (12:38)
[2020-02-20] MEDS ORDERED: ATROPINE SULF 1 MG/10ml SYR ONE (12:38)
[2020-02-20] MEDS ORDERED: fentaNYL CITRATE 100 MCG/2 ML VL ONE (12:38)
[2020-02-20] MEDS ORDERED: MIDAZOLAM HCL 1MG/1ML-2 ML VIAL ONE (12:39)
[2020-02-20] MEDS ORDERED: LIDOCAINE 2%HCL (LOCAL ANESTH.) INJ 20ML MDV ONE ×3 (12:52→14:00)
[2020-02-20] MEDS ORDERED: IODIXANOL 320MG/ML 100ML BTL IV ONE ×2 (13:30→14:16)
--- NOTE | 2020-02-20 14:39 | NUR ---
Patient brought to recovery via [facility], report received from Katarzyna RN and Boyd RN. Patient is AO x 4, slightly restless. Patient states she is experiencing slight discomfort at this time to incision sites. Noted incision sites to right and left upper chest sites, dressing in place CDI. Ice packs in place to bilateral sites. Patient educated on post-procedure care instructions, verbalized understanding.
--- NOTE | 2020-02-20 14:54 | NUR ---
Patient is currently resting in bed with eyes closed. Even rise and fall of chest observed. Right and left upper chest sites remain unchanged. NAD noted.
[2020-02-20] MEDS ORDERED: FUROSEMIDE 40 MG/4 ML VIAL IV ONE (15:15)
[2020-02-20] MEDS ORDERED: POTASSIUM CHL 20 Meq TABLET PO ONE (15:15)
--- NOTE | 2020-02-20 15:30 | NUR ---
Medina catheter insertion Patient assessed and determined to be in need of Medina catheter. Order obtained from MD Fletcher. Patient educated on catheter and reason for insertion. All questions answered. Medina catheter 16 gauge English inserted with clean sterile technique by TRINITY Castro. Patient tolerated well.
--- NOTE | 2020-02-20 15:45 | NUR ---
MD Fletcher currently updating patient's daughter, Bethany on POC and procedure outcome via telephone.
--- NOTE | 2020-02-20 15:58 | NUR ---
MD Fletcher at bedside Explaining outcome of procedure and POC, patient verbalized understanding.
--- NOTE | 2020-02-20 16:40 | NUR ---
Received reports from Scarlett PETERSEN Field Foreman, patient is for US guided venogram and PPI tomorrow after unsuccessful attempts to place the PPI on both left and right upper chest today. Patient is transferred to room via gurney with dressing on bilateral upper chest dry and intact with ice packs on top. Patient is alert and oriented x4, able to follow commands and make needs known. Patient 4/10 pain rate on the incision sites. Patient has bilateral hearing aids in use for hard of hearing. Oriented to floor policy and verbalized understanding. O2 inhalation at 3lpm/nasal cannula continuously administered. On teletypesetter monitor reading sinus bradycardia-49bpm. Bed alarm on and side rails up x2. Will continue to monitor. Addendum: 02/20/20 at 1845 by Bronson Dickson RN wrong time of entry
[2020-02-20] MEDS ORDERED: NITROGLYCERIN 0.4 MG SL TAB SL PRN (16:45)
[2020-02-20] MEDS ORDERED: MORPHINE SULF INJ 2 MG/ML SYRINGE 1ML IV PRN (16:45)
[2020-02-20] MEDS ORDERED: DEXTROSE (50%) 50ML SYRG IV PRN (16:45)
--- NOTE | 2020-02-20 16:45 | NUR ---
Report given to primary RNBronson.
--- NOTE | 2020-02-20 16:51 | NUR ---
Spoke to patient's daughter, Trena, via telephone. Phone number . Updated patient's daughter on patient status and POC.
[2020-02-20 17:00] VITALS: BP 145/82
[2020-02-20] MEDS: InsuLIN REG 1unit/0.01ml Soln (100units/ml) SC SCH ×2 (17:00→21:56)
--- NOTE | 2020-02-20 17:07 | NUR ---
Patient taken to telemetry unit via gurney by this RN and TRINITY Chong. compliance monitor in place, NAD noted upon departure. All personal belongings in possession of patient. Primary RNBronson present at bedside to receive patient and witness left/right upper chest sites benign, dressings are CDI. Bed set in lowest locked position with side rails up x 2, call light is within reach and bed alarm set on for safety. Care endorsed to TRINITY Dobson.
--- NOTE | 2020-02-20 17:40 | NUR ---
Received reports from Scarlett PETERSEN Appellate Law Clerk, patient is for US guided venogram and PPI tomorrow after unsuccessful attempts to place the PPI on both left and right upper chest today. Patient is transferred to room via gurney with dressing on bilateral upper chest dry and intact with ice packs on top. Patient is alert and oriented x4, able to follow commands and make needs known. Patient 4/10 pain rate on the incision sites. Patient has bilateral hearing aids in use for hard of hearing. Oriented to floor policy and verbalized understanding. O2 inhalation at 3lpm/nasal cannula continuously administered. On phototypesetting equipment monitor reading sinus bradycardia-49bpm. Bed alarm on and side rails up x2. Will continue to monitor.
[2020-02-20] MEDS: ACCU-CHEK COMFORT CURVE STRIP VI SCH ×2 (18:19→21:56)
[2020-02-20] MEDS: HYDROmorphone HCL 2 MG/ML VL IV PRN (20:21)
[2020-02-20 22:00] VITALS: BP 139/77
[2020-02-20] MEDS: ceFAZolin 1GM/50ML 50 ML IV SCH (22:24)
[2020-02-21 05:00] VITALS: BP 157/67
[2020-02-21] MEDS: ceFAZolin 1GM/50ML 50 ML IV SCH ×3 (06:16→23:18)
[2020-02-21 06:37] LABS: BUN/Creatinine Ratio 31.2; Calcium 10.1 mg/dL (8.5-10.1); Potassium 4.6 mmol/L (3.5-5.1)
[2020-02-21 06:39] LABS: INR 1.07 (0.9-1.15)
[2020-02-21] MEDS: ACCU-CHEK COMFORT CURVE STRIP VI SCH ×4 (06:40→22:00)
[2020-02-21] MEDS: InsuLIN REG 1unit/0.01ml Soln (100units/ml) SC SCH ×4 (06:40→22:00)
[2020-02-21 06:49] LABS: Basophils % (auto) 0.5 % (0.0-2.0); Eosinophils # (auto) 0 10 ^3/uL (0-0.8); Hemoglobin 8.9 g/dL (12.2-16.2); Mean Corpuscular Hemoglobin 22.5 pg (28.0-32.0); Monocytes # (auto) 0.9 10 ^3/uL (0-1.3); Nucleated Red Blood Cells % 0.1 %; Red Blood Cells 3.93 10^6/uL (4.0-5.20); White Blood Cell 9.2 10^3/uL (4.4-10.8)
[2020-02-21 06:52] LABS: Basophils # (auto) 0.1 10 ^3/uL (0-0.2); Eosinophils % (auto) 0.5 % (0.0-7.0); Hematocrit 28.4 % (36.0-46.0); Lymphocytes # (auto) 1.3 10 ^3/uL (0.4-5.4); Lymphocytes % (auto) 14.4 % (10.0-50.0); Mean Corpuscular Hgb Conc. 31.1 g/dL (32.0-36.0); Mean Corpuscular Volume 72.3 fL (80.0-100.0); Monocytes % (auto) 9.5 % (0.0-12.0); Neutrophils # (auto) 6.9 10 ^3/uL (1.6-8.6); Neutrophils % (auto) 75.1 % (37.0-80.0); Platelet Count (auto) 305 10^3/uL (140-450); Red Cell Distribution Width 17.6 % (11.8-14.3)
[2020-02-21 09:00] VITALS: BP 129/53
[2020-02-21] MEDS ORDERED: RIOCIGUAT BASE PO SCH (10:00)
[2020-02-21] MEDS: TORSEMIDE 20 MG TAB PO SCH (11:04)
[2020-02-21] MEDS: POTASSIUM CHL 10 Meq TABLET PO SCH (11:04)
[2020-02-21] MEDS: PANTOPRAZOLE 40 MG TAB PO SCH ×2 (11:04→23:17)
[2020-02-21 13:00] VITALS: BP 156/66
[2020-02-21] MEDS ORDERED: LIDOCAINE 2%HCL (LOCAL ANESTH.) INJ 20ML MDV ONE (13:42)
[2020-02-21] MEDS ORDERED: fentaNYL CITRATE 100 MCG/2 ML VL ONE (13:53)
[2020-02-21] MEDS ORDERED: VANCOMYCIN HCL 1000 MG VL ONE (13:53)
[2020-02-21] MEDS ORDERED: VANCOMYCIN 1GM/250ML 250 ML IV ONE (13:54)
[2020-02-21] MEDS ORDERED: MIDAZOLAM HCL 1MG/1ML-2 ML VIAL ONE (13:54)
[2020-02-21] MEDS ORDERED: diphenhdrAMINE HCL 50 MG/1 ML VL ONE (14:14)
[2020-02-21] MEDS ORDERED: HYDROmorphone HCL 2 MG/ML VL ONE (15:31)
[2020-02-21] MEDS ORDERED: ONDANSETRON HCL 4 MG/2 ML VIAL ONE (15:31)
[2020-02-21] MEDS: ONDANSETRON HCL 4 MG/2 ML VIAL IV PRN (15:36)
[2020-02-21] MEDS: HYDROmorphone HCL 2 MG/ML VL IV PRN (15:38)
[2020-02-21] MEDS: RIOCIGUAT BASE PO SCH ×2 (16:44→22:00)
[2020-02-21 17:00] VITALS: BP 151/75
--- NOTE | 2020-02-21 19:51 | NUR ---
[place] report from ear mold laboratory technician nurse. Patient is s/p pacemaker dual chamber . BP 113/58 heart rate 80 O2 92 on 3L NC . Patient is back to the room states that she is feeling well and no pain. Vital signs stable.will continue to monitor
--- NOTE | 2020-02-21 20:00 | NUR ---
Opening Shift Note Assumed care of patient, awake and alert. No S/S of distress/SOB or pain. Instructed on POC and to call for assist PRN, will continue to monitor for changes Q1hr and PRN. Right arm placed in sling. Bed in low position and call light in reach.
--- NOTE | 2020-02-21 21:30 | NUR ---
Telephone call received from [employer] reports patient's Heart rate in the- 36-40s. Patient assessed complains of mid-sternal pain only with inspirations. Skin color adequate, dry and warm to touch. 02@ 4l/min. Upon assessment, HR sustained in the 80s. B/P 147/64.
[2020-02-21] MEDS: METOPROLOL SUCCINATE XL 50 MG TAB PO SCH (22:00)
--- NOTE | 2020-02-21 22:00 | NUR ---
Patient awake no distress noted. HR V- paced 80. Denies pain.
--- NOTE | 2020-02-21 22:00 | NUR ---
Patient's 2200 Metoprolol XL held due to erratic pulse rate. Patient states she only takes Metoprolol once daily.
--- NOTE | 2020-02-22 00:48 | NUR ---
EKG performed. No significant change from previous EKG. Patient awake HR. 80. No distress note.
--- NOTE | 2020-02-22 01:30 | NUR ---
Telephone call placed to Dr. Fletcher's exchange to report HR and the holding of Metoprolol.
--- NOTE | 2020-02-22 02:30 | NUR ---
Awaiting call back from Dr. Fletcher. Patient HR sustained in the 80s. No acute distress noted.
[2020-02-22 05:00] VITALS: BP 154/77
[2020-02-22] MEDS: RIOCIGUAT BASE PO SCH ×2 (06:00→15:35)
[2020-02-22] MEDS: ceFAZolin 1GM/50ML 50 ML IV SCH ×2 (06:43→15:34)
[2020-02-22] MEDS: InsuLIN REG 1unit/0.01ml Soln (100units/ml) SC SCH ×3 (06:58→17:59)
--- NOTE | 2020-02-22 07:00 | NUR ---
Patient resting comfortably no distress noted. HR 76-80 V paced.
--- NOTE | 2020-02-22 07:30 | NUR ---
Patient's status reported to oncoming RN. Continue to await call back from.
--- NOTE | 2020-02-22 07:30 | NUR ---
Opening Shift Note Received report from maintenance supervisor 2nd shift RN. Assumed care of patient, awake and alert. No S/S of distress/SOB or pain. Instructed on POC and to call for assist PRN, will continue to monitor for changes Q1hr and PRN. Bed in lowest position top two side rails up call light within reach.
[2020-02-22 09:00] VITALS: BP 121/60
[2020-02-22] MEDS: METOPROLOL SUCCINATE XL 50 MG TAB PO SCH (09:41)
[2020-02-22] MEDS: POTASSIUM CHL 10 Meq TABLET PO SCH (09:41)
[2020-02-22] MEDS: TORSEMIDE 20 MG TAB PO SCH (09:43)
[2020-02-22] MEDS ORDERED: AMIODARONE HCL 200 MG TAB PO SCH (10:00)
[2020-02-22] MEDS: HYDROmorphone HCL 2 MG/ML VL IV PRN (11:00)
[2020-02-22] MEDS: ACCU-CHEK COMFORT CURVE STRIP VI SCH ×2 (12:28→17:56)
[2020-02-22] MEDS: ONDANSETRON HCL 4 MG/2 ML VIAL IV PRN (12:37)
[2020-02-22 13:00] VITALS: BP 125/59
--- NOTE | 2020-02-22 16:05 | NUR ---
PER DR PYLE CALL IN ORDER FOR KEFLEX ORDERED. SPOKE TO TYRONE THAO" AT [facility] WHICH IS THE PATIENTS PREFERRED PHARMACY, PRESCRIPTION WILL BE FILLED.
[2020-02-22 16:08] VITALS: BP 124/69
--- NOTE | 2020-02-22 16:20 | NUR ---
SPOKE TO TATIANNA FROM CASE MANAGEMENT REGARDING ORDER FOR HOME HEALTH. PER TATIANNA FAX TO [facility]. PT WAS GIVEN THE OPTION TO CHOOSE A HOME HEALTH AGENCY AND SHE WANTED TO USE [facility] PER DR. PERDOMO ORDER. 1709-SPOKE TO APRIL FROM [facility], HE CONFIRMED HE RECEIVED ORDER. PER APRIL PT WILL BE SEEN ON MONDAY.
--- NOTE | 2020-02-22 17:30 | NUR ---
OHARA CATHETER WAS D/C'D ORDERED. PT TOLERATED WELL. PT WAS ABLE TO URINATE IN BATHROOM.
--- NOTE | 2020-02-22 18:45 | NUR ---
DISCHARGE DISCHARGE PAPERWORK GIVEN TO PT. PT VERBALIZED UNDERSTANDING. PT IS AWARE TO FOLLOW UP WITH DR PYLE ON MONDAY PER DR PYLE. PT IS AWARE PRESCRIPTION WAS CALLED TO PHARMACY OF CHOICE. PT IS AWARE THAT [facility] WILL SEE HER ON MONDAY. IV D/CD' X2 BOTH CATHETERS INTACT. PT TOLERATED WELL. TELE MONITOR REMOVED AND SENT TO ICU. PATIENTS OWN MEDS RETURNED TO PATIENT. PT STABLE AT THIS TIME. AWAITING FOR DAUGHTER TO PICK HER UP.
== END 2020-02-22 19:20 | disposition home health service (06) | DRG 242 ==
LOC: CATH 10:05 → TELE-WESTW 10:06
PROVIDERS: ADMIT Internal Medicine Cardiovascular Disease; ATTEND Internal Medicine Cardiovascular Disease
PROC: B5171ZZ Fluoroscopy of Left Subclavian Vein using Low Osmolar Contrast (ICD-10-PCS; principal; 2020-02-20)
PROC: 0JH606Z Insertion of Pacemaker, Dual Chamber into Chest Subcutaneous Tissue and Fascia, Open Approach (ICD-10-PCS; 2020-02-21)
PROC: 02H63JZ Insertion of Pacemaker Lead into Right Atrium, Percutaneous Approach (ICD-10-PCS; 2020-02-21)
PROC: 02HK3JZ Insertion of Pacemaker Lead into Right Ventricle, Percutaneous Approach (ICD-10-PCS; 2020-02-21)
DX: I49.5 Sick sinus syndrome (principal); I50.31 Acute diastolic (congestive) heart failure; D68.59 Other primary thrombophilia; I44.1 Atrioventricular block, second degree; I48.0 Paroxysmal atrial fibrillation; Z20.828 Contact with and (suspected) exposure to other viral communicable diseases; I11.0 Hypertensive heart disease with heart failure; M81.0 Age-related osteoporosis without current pathological fracture; M19.90 Unspecified osteoarthritis, unspecified site; Z95.2 Presence of prosthetic heart valve
CPT/HCPCS: 33208; 36415; 71045; 75820; 80048; 82962; 85025; 85610; 93005; 99152; 99153; C1785; G0378; J0690; J1815; J2250; J2405; Q9967

== ENCOUNTER → 2020-03-06 | Outpatient (CLI) | payer MEDICARE, BC | END | disposition home or self-care (01) | LOC: Rad HDHVI 12:57 | PROVIDERS: ATTEND Internal Medicine Cardiovascular Disease | DX: I48.91 Unspecified atrial fibrillation (principal); R06.02 Shortness of breath | CPT/HCPCS: 93306 ==

== ENCOUNTER → 2020-03-30 | Outpatient (CLI) | payer MEDICARE, BC ==
[~2020-03-30] VITALS: Ht 30.5 cm; Wt 0.5 kg
[~2020-03-30] MED LIST changes: +CYANOCOBALAMIN (B-12) 1000 MCG/1 ML VIAL IM ONE; +CYANOCOBALAMIN (B-12) 1000 MCG/1 ML VIAL ONE
[2020-03-30 12:39] VITALS: BP 153/65
--- NOTE | 2020-03-30 12:39 | NUR ---
PT ARRIVED TO [facility] FOR SCHEDULED PAH EVAL AND TX. PT SEEN THIS AM BY DR. PYLE FOR ECHO RESULTS C/O OF WORSENING SOB WITH EXERTION WITH HYPOXEMIA, STATING " STATS DECREASED TO LOW 80s WITH EXERTION THEN COMES BACK TO BASE LINE". PT A/OX4, AMBULATORY AND BREATHING EVEN UNLABORED.
--- NOTE | 2020-03-30 13:00 | NUR ---
ORDERED LABS DRAWN AND SENT TO LAB PER MD ORDERS.
[2020-03-30 13:07] VITALS: BP 150/64
--- NOTE | 2020-03-30 13:07 | NUR ---
Discharge Instructions See e-MAR for any mediations given with this visit. Patient education given on disease process. Patient verbalized understanding. Previous labs reviewed. Patient discharged in stable condition with after care instructions and follow up appointment NEXT MONDAY AT 1100. NOTE: VIT B 12 IM VIA L DELTOID LOT #[id number] EXP 07/23 ADMIN BY TRINITY AGUDELO
[2020-03-30 15:57] LABS: Basophils # (auto) 0.1 10 ^3/uL (0-0.2); Eosinophils # (auto) 0.1 10 ^3/uL (0-0.8); Monocytes # (auto) 0.7 10 ^3/uL (0-1.3)
[2020-03-30 15:59] LABS: Basophils % (auto) 1.3 % (0.0-2.0); Eosinophils % (auto) 1.4 % (0.0-7.0); Hematocrit 30.4 % (36.0-46.0); Hemoglobin 9.5 g/dL (12.2-16.2); Lymphocytes # (auto) 1.3 10 ^3/uL (0.4-5.4); Lymphocytes % (auto) 18.2 % (10.0-50.0); Mean Corpuscular Hgb Conc. 31.2 g/dL (32.0-36.0); Mean Corpuscular Volume 70.3 fL (80.0-100.0); Monocytes % (auto) 9.4 % (0.0-12.0); Neutrophils % (auto) 69.7 % (37.0-80.0); Platelet Count (auto) 331 10^3/uL (140-450); Red Blood Cells 4.33 10^6/uL (4.0-5.20); Red Cell Distribution Width 18.6 % (11.8-14.3); White Blood Cell 7.2 10^3/uL (4.4-10.8)
[2020-03-30 16:23] LABS: Albumin 3.5 g/dL (3.4-5.0); Calcium 9.7 mg/dL (8.5-10.1); Magnesium 2.4 mg/dL (1.6-2.6); Potassium 4.1 mmol/L (3.5-5.1)
[2020-03-30 16:28] LABS: BUN/Creatinine Ratio 20.3; Bilirubin, Total 0.4 mg/dL (0.2-1.0); Total Protein 7.8 g/dL (6.4-8.2)
== END | disposition home or self-care (01) ==
LOC: CHF HDHVI 12:47
PROVIDERS: ATTEND Internal Medicine Cardiovascular Disease
DX: I27.21 Secondary pulmonary arterial hypertension (principal); I11.0 Hypertensive heart disease with heart failure; I50.9 Heart failure, unspecified; I49.9 Cardiac arrhythmia, unspecified; I48.0 Paroxysmal atrial fibrillation; I25.10 Atherosclerotic heart disease of native coronary artery without angina pectoris; R06.02 Shortness of breath; D64.9 Anemia, unspecified; M81.0 Age-related osteoporosis without current pathological fracture; M19.90 Unspecified osteoarthritis, unspecified site; Z79.899 Other long term (current) drug therapy; Z87.891 Personal history of nicotine dependence
CPT/HCPCS: 36415; 80053; 83735; 85025; 96372; G0463; J3420

== ENCOUNTER → 2020-04-07 | Outpatient (CLI) | payer MEDICARE, BC ==
[2020-04-07 11:20] VITALS: BP 152/70
[2020-04-07 12:15] VITALS: BP 160/78
[2020-04-07 15:54] LABS: Basophils # (auto) 0.1 10 ^3/uL (0-0.2); Eosinophils # (auto) 0.1 10 ^3/uL (0-0.8); Eosinophils % (auto) 1.5 % (0.0-7.0); Hematocrit 29.6 % (36.0-46.0); Hemoglobin 9.1 g/dL (12.2-16.2); Lymphocytes # (auto) 1.2 10 ^3/uL (0.4-5.4); Lymphocytes % (auto) 17.3 % (10.0-50.0); Mean Corpuscular Hemoglobin 21.5 pg (28.0-32.0); Mean Corpuscular Hgb Conc. 30.8 g/dL (32.0-36.0); Mean Corpuscular Volume 69.6 fL (80.0-100.0); Monocytes # (auto) 0.6 10 ^3/uL (0-1.3); Monocytes % (auto) 8.7 % (0.0-12.0); Neutrophils % (auto) 71.5 % (37.0-80.0); Nucleated Red Blood Cells % 0.2 %; Platelet Count (auto) 338 10^3/uL (140-450); Red Blood Cells 4.25 10^6/uL (4.0-5.20); Red Cell Distribution Width 18.9 % (11.8-14.3)
[2020-04-07 16:01] LABS: Albumin 3.3 g/dL (3.4-5.0); Calcium 9.5 mg/dL (8.5-10.1); Potassium 4.1 mmol/L (3.5-5.1)
[2020-04-07 16:12] LABS: BUN/Creatinine Ratio 19.2; Bilirubin, Total 0.4 mg/dL (0.2-1.0); Total Protein 7.5 g/dL (6.4-8.2)
== END | disposition home or self-care (01) ==
LOC: CHF HDHVI 11:28
PROVIDERS: ATTEND Internal Medicine Cardiovascular Disease
DX: I27.21 Secondary pulmonary arterial hypertension (principal); I11.0 Hypertensive heart disease with heart failure; I50.9 Heart failure, unspecified; R53.83 Other fatigue; R06.02 Shortness of breath; M81.0 Age-related osteoporosis without current pathological fracture; I25.10 Atherosclerotic heart disease of native coronary artery without angina pectoris; I48.0 Paroxysmal atrial fibrillation; M19.90 Unspecified osteoarthritis, unspecified site; Z99.81 Dependence on supplemental oxygen; Z79.899 Other long term (current) drug therapy; Z87.891 Personal history of nicotine dependence
CPT/HCPCS: 36415; 80053; 83735; 85025; 96372; G0463; J3420

== ENCOUNTER → 2020-04-10 | Outpatient (CLI) | payer MEDICARE, BC ==
[~2020-04-10] MED LIST changes: -CYANOCOBALAMIN (B-12) 1000 MCG/1 ML VIAL IM ONE; -CYANOCOBALAMIN (B-12) 1000 MCG/1 ML VIAL ONE; +VANCOMYCIN 1GM/250ML 250 ML IV ONE
[2020-04-10 08:45] VITALS: BP 152/66
[2020-04-10 12:39] VITALS: BP 131/77
== END | disposition home or self-care (01) ==
LOC: CHF HDHVI 08:55
PROVIDERS: ATTEND Internal Medicine Cardiovascular Disease
DX: I27.21 Secondary pulmonary arterial hypertension (principal); T82.7XXA Infection and inflammatory reaction due to other cardiac and vascular devices, implants and grafts, initial encounter; M81.0 Age-related osteoporosis without current pathological fracture; I25.10 Atherosclerotic heart disease of native coronary artery without angina pectoris; I11.0 Hypertensive heart disease with heart failure; I50.9 Heart failure, unspecified; I48.0 Paroxysmal atrial fibrillation; M19.90 Unspecified osteoarthritis, unspecified site; Z87.891 Personal history of nicotine dependence; Z79.899 Other long term (current) drug therapy; Z99.81 Dependence on supplemental oxygen
CPT/HCPCS: 96365; G0463; J3370

== ENCOUNTER → 2020-04-13 | Outpatient (CLI) | payer MEDICARE, BC ==
[~2020-04-13] MED LIST changes: +AMIO100T3 OR; +AMIO400T7 PO; +ASPI81CH43 PO; +cefTRIAXone 1GM/50ML D5W 50 ML IV ONE
[2020-04-13 12:14] VITALS: BP 136/56
[2020-04-13 15:40] VITALS: BP 147/67
== END | disposition home or self-care (01) ==
LOC: CHF HDHVI 12:55
PROVIDERS: ATTEND Internal Medicine Cardiovascular Disease
DX: T82.7XXA Infection and inflammatory reaction due to other cardiac and vascular devices, implants and grafts, initial encounter (principal); I27.21 Secondary pulmonary arterial hypertension; M81.0 Age-related osteoporosis without current pathological fracture; I25.10 Atherosclerotic heart disease of native coronary artery without angina pectoris; I11.0 Hypertensive heart disease with heart failure; I50.30 Unspecified diastolic (congestive) heart failure; I48.0 Paroxysmal atrial fibrillation; M19.90 Unspecified osteoarthritis, unspecified site; Z79.899 Other long term (current) drug therapy; Z87.891 Personal history of nicotine dependence; Y82.8 Other medical devices associated with adverse incidents
CPT/HCPCS: 96365; 96367; G0463; J0696; J3370

== ENCOUNTER → 2020-04-27 | Outpatient (CLI) | payer MEDICARE, BC ==
[~2020-04-27] MED LIST changes: -AMIO100T3 OR; -AMIO400T7 PO; -ASPI81CH43 PO; +CHOL20007 OR; +RIOC1TAB14 PO; -RIOC1TAB7 PO; -VANCOMYCIN 1GM/250ML 250 ML IV ONE; -cefTRIAXone 1GM/50ML D5W 50 ML IV ONE
[2020-04-27 09:30] VITALS: BP 149/71
[2020-04-27 10:09] VITALS: BP 155/74
[2020-04-27 11:36] LABS: Basophils # (auto) 0.1 10 ^3/uL (0-0.2); Eosinophils # (auto) 0.1 10 ^3/uL (0-0.8); Hemoglobin 9.6 g/dL (12.2-16.2); Lymphocytes # (auto) 1.9 10 ^3/uL (0.4-5.4); Monocytes # (auto) 0.9 10 ^3/uL (0-1.3); Neutrophils # (auto) 5.2 10 ^3/uL (1.6-8.6); Nucleated Red Blood Cells % 0.1 %
[2020-04-27 11:39] LABS: Basophils % (auto) 1.4 % (0.0-2.0); Eosinophils % (auto) 1.5 % (0.0-7.0); Hematocrit 31.2 % (36.0-46.0); Lymphocytes % (auto) 23.2 % (10.0-50.0); Mean Corpuscular Hemoglobin 21.2 pg (28.0-32.0); Mean Corpuscular Hgb Conc. 30.7 g/dL (32.0-36.0); Mean Corpuscular Volume 69.1 fL (80.0-100.0); Monocytes % (auto) 10.8 % (0.0-12.0); Neutrophils % (auto) 63.1 % (37.0-80.0); Platelet Count (auto) 385 10^3/uL (140-450); Red Blood Cells 4.52 10^6/uL (4.0-5.20); Red Cell Distribution Width 19.6 % (11.8-14.3); White Blood Cell 8.3 10^3/uL (4.4-10.8)
[2020-04-27 11:50] LABS: BUN/Creatinine Ratio 19.9; Calcium 9.8 mg/dL (8.5-10.1); Potassium 4.6 mmol/L (3.5-5.1)
[2020-04-27 12:15] LABS: INR 1.24 (0.9-1.15); Partial Thromboplastin Time 29.7 sec (23.0-31.2)
== END | disposition home or self-care (01) ==
LOC: CHF HDHVI 09:19
PROVIDERS: ATTEND Internal Medicine Cardiovascular Disease
DX: Z01.812 Encounter for preprocedural laboratory examination (principal); J98.4 Other disorders of lung; I70.0 Atherosclerosis of aorta; M47.814 Spondylosis without myelopathy or radiculopathy, thoracic region; M85.80 Other specified disorders of bone density and structure, unspecified site; I11.0 Hypertensive heart disease with heart failure; I50.30 Unspecified diastolic (congestive) heart failure; Z95.2 Presence of prosthetic heart valve; Z95.0 Presence of cardiac pacemaker; Z96.611 Presence of right artificial shoulder joint
CPT/HCPCS: 36415; 71046; 80048; 85025; 85610; 85730; 93005; G0463

== ENCOUNTER 2020-04-30 06:59 | Day surgery (SDC) | payer MEDICARE, BC ==
[~2020-04-30] VITALS: Ht 152.4 cm; Wt 73.5 kg
[2020-04-30] MEDS ORDERED: IOHEXOL 350 MG/ML 100ML IJ ONE (07:44)
[2020-04-30] MEDS ORDERED: LIDOCAINE 2%HCL (LOCAL ANESTH.) INJ 20ML MDV ONE (07:59)
[2020-04-30] MEDS ORDERED: VANCOMYCIN HCL 1000 MG VL ONE ×3 (08:37→09:07)
[2020-04-30] MEDS ORDERED: fentaNYL CITRATE 100 MCG/2 ML VL ONE (08:38)
[2020-04-30] MEDS ORDERED: VANCOMYCIN 1GM/250ML 250 ML IV ONE (08:39)
[2020-04-30] MEDS ORDERED: MIDAZOLAM HCL 2MG/2ML 2ml VIAL (1mg/ml) ONE (08:39)
[2020-04-30] MEDS ORDERED: ceFAZolin 1GM VL ONE ×2 (09:20→09:22)
[2020-04-30] MEDS ORDERED: HYDROcodone-ACET 5/325MG TAB PO PRN (09:30)
[2020-04-30] MEDS: ceFAZolin 1GM/50ML 50 ML IV SCH ×2 (10:20→11:27)
[2020-11-19] MEDS ORDERED: TORS20TA19 PO (14:36)
[2020-11-19] MEDS ORDERED: ALLO300T2 PO (14:36)
[2020-11-19] MEDS ORDERED: ONDA-144 PO (14:36)
[2020-11-19] MEDS ORDERED: RIVA2.5T PO (14:36)
[2020-11-19] MEDS ORDERED: POM PO (14:40)
== END 2020-04-30 13:22 | disposition home or self-care (01) ==
LOC: CATH 06:59
PROVIDERS: ATTEND Internal Medicine Cardiovascular Disease
DX: Z45.018 Encounter for adjustment and management of other part of cardiac pacemaker (principal); T82.7XXA Infection and inflammatory reaction due to other cardiac and vascular devices, implants and grafts, initial encounter; I48.91 Unspecified atrial fibrillation; I10 Essential (primary) hypertension; G47.33 Obstructive sleep apnea (adult) (pediatric); I49.5 Sick sinus syndrome; E11.9 Type 2 diabetes mellitus without complications; Z87.891 Personal history of nicotine dependence; Z20.822 Contact with and (suspected) exposure to COVID-19; Z98.890 Other specified postprocedural states; Z79.899 Other long term (current) drug therapy; Z88.1 Allergy status to other antibiotic agents; Z88.8 Allergy status to other drugs, medicaments and biological substances; Z68.31 Body mass index [BMI] 31.0-31.9, adult; E66.9 Obesity, unspecified
CPT/HCPCS: 33222; J0690; J1644; J2250; J3010; J3370; Q9967; U0003; 99152; 99153

== ENCOUNTER 2020-05-29 15:35 | Inpatient (IN) | payer MEDICARE, BC ==
[~2020-05-29] VITALS: Ht 165.1 cm; Wt 78.9 kg
[2020-05-29 17:10] LABS: Basophils # (auto) 0.1 10 ^3/uL (0-0.2); Eosinophils # (auto) 0 10 ^3/uL (0-0.8); Eosinophils % (auto) 0.1 % (0.0-7.0); Lymphocytes # (auto) 0.7 10 ^3/uL (0.4-5.4); Monocytes # (auto) 1.2 10 ^3/uL (0-1.3)
[2020-05-29 17:12] LABS: Basophils % (auto) 0.6 % (0.0-2.0); Hematocrit 26.2 % (36.0-46.0); Hemoglobin 8.2 g/dL (12.2-16.2); Lymphocytes % (auto) 4.9 % (10.0-50.0); Mean Corpuscular Hemoglobin 21.3 pg (28.0-32.0); Mean Corpuscular Hgb Conc. 31.5 g/dL (32.0-36.0); Mean Corpuscular Volume 67.7 fL (80.0-100.0); Monocytes % (auto) 8.3 % (0.0-12.0); Neutrophils # (auto) 12.1 10 ^3/uL (1.6-8.6); Neutrophils % (auto) 86.1 % (37.0-80.0); Nucleated Red Blood Cells % 0.1 %; Platelet Count (auto) 236 10^3/uL (140-450); Red Blood Cells 3.86 10^6/uL (4.0-5.20)
[2020-05-29 17:16] LABS: Red Cell Distribution Width 20.2 % (11.8-14.3)
[2020-05-29 17:23] LABS: Anion Gap 9 (5-15); Blood Urea Nitrogen 31 mg/dL (7-18); Calcium 9.1 mg/dL (8.5-10.1); Carbon Dioxide 24 mmol/L (21-32); Chloride 100 mmol/L (98-107); Glucose 143 mg/dL (74-106); Magnesium 2.1 mg/dL (1.6-2.6); Potassium 4.2 mmol/L (3.5-5.1); Sodium 133 mmol/L (136-145)
[2020-05-29 17:28] LABS: INR 1.5 (0.9-1.15); Partial Thromboplastin Time 40.2 sec (23.0-31.2)
[2020-05-29] MEDS ORDERED: FUROSEMIDE 20 MG/2 ML VIAL IV ONE (17:30)
[2020-05-29] MEDS ORDERED: cefTRIAXone 1GM/50ML D5W 50 ML IV ONE (17:30)
[2020-05-29] MEDS ORDERED: AZITHROMYCIN 500MG/ 250ML 250 ML IV ONE (17:30)
[2020-05-29 17:41] LABS: Alanine Aminotransferase 35 U/L (13-56); Alkaline Phosphatase 89 U/L (45-117); Aspartate Aminotransferase 37 U/L (15-37); BUN/Creatinine Ratio 20.5; Bilirubin, Total 0.9 mg/dL (0.2-1.0); GFR African American 42 mL/min; GFR Non-African American 35 mL/min; Total Protein 7.3 g/dL (6.4-8.2)
[2020-05-29] MEDS ORDERED: NITROGLYCERIN 0.4 MG SL TAB SL PRN ×2 (18:00→19:30)
[2020-05-29] MEDS ORDERED: MORPHINE SULF INJ 2 MG/ML SYRINGE 1ML IV PRN ×3 (18:00→19:30)
[2020-05-29] MEDS ORDERED: METOPROLOL SUCCINATE XL 50 MG TAB PO ONE (19:30)
[2020-05-29] MEDS ORDERED: LORazepam 0.5 MG TAB PO PRN (19:30)
[2020-05-29] MEDS ORDERED: ONDANSETRON HCL 4 MG/2 ML VIAL IV PRN (19:30)
[2020-05-29] MEDS ORDERED: DEXTROSE (50%) 50ML SYRG IV PRN (19:30)
[2020-05-29] MEDS ORDERED: ALUM & MAG HYDROX-SIMETH LIQ(MAALOX) 30 ML PO PRN (19:30)
[2020-05-29] MEDS ORDERED: FUROSEMIDE 40 MG/4 ML VIAL IV ONE (19:30)
[2020-05-29] MEDS: ALBUMIN 25% 100 ML IV SCH ×2 (21:06→21:54)
[2020-05-29 21:43] LABS: Cholesterol 141 mg/dL (< 200); HDL Cholesterol 57 mg/dL (40-59); LDL Cholesterol 76 mg/dL (< 100); Triglycerides 109 mg/dL (< 150)
[2020-05-29] MEDS: CLINDAMYCIN 600MG IV 50 ML IV SCH (21:55)
[2020-05-29] MEDS: ATORVASTATIN 20 MG TAB PO SCH (21:56)
[2020-05-29] MEDS: UPTRAVI PO SCH (21:58)
[2020-05-29] MEDS ORDERED: FAMOTIDINE (10MG/ML) 2ML VL IV SCH (22:00)
[2020-05-29 22:42] LABS: Urine Bacteria NONE SEEN /hpf (None Seen); Urine Blood Negative /uL (Negative); Urine Hyaline Cast MOD /lpf (0 - 2); Urine Mucus FEW (None Seen); Urine Specific Gravity 1.013 (1.001-1.035); Urine WBC 3 /hpf (0 - 5)
[2020-05-29 23:09] LABS: Amphetamine Screen, Urine NEGATIVE (NEGATIVE); Benzodiazephine Screen, Urine NEGATIVE (NEGATIVE); Cannabinoid Screen, Urine NEGATIVE (NEGATIVE); Cocaine Screen, Urine NEGATIVE (NEGATIVE); Opiate Scree,Urine NEGATIVE (NEGATIVE); Phencyclidine Screen, Urine NEGATIVE (NEGATIVE)
[2020-05-29 23:21] LABS: Barbiturate Scree,Urine NEGATIVE (NEGATIVE)
[2020-05-29] MEDS: ACCU-CHEK COMFORT CURVE STRIP VI SCH (23:56)
[2020-05-30] MEDS: InsuLIN REG 1unit/0.01ml Soln (100units/ml) SC SCH ×5 (00:05→23:41)
[2020-05-30] MEDS: ACETAMINOPHEN 325 MG TAB PO PRN (00:44)
[2020-05-30] MEDS: ACCU-CHEK COMFORT CURVE STRIP VI SCH ×4 (06:00→23:37)
[2020-05-30 06:15] VITALS: BP 127/59
[2020-05-30] MEDS: CLINDAMYCIN 600MG IV 50 ML IV SCH ×3 (07:01→22:04)
[2020-05-30] MEDS: FUROSEMIDE 40 MG/4 ML VIAL IV SCH ×2 (07:02→17:50)
[2020-05-30 08:49] VITALS: BP 111/50
[2020-05-30] MEDS: cefTRIAXone 1GM/50ML D5W 50 ML IV SCH (09:00)
[2020-05-30] MEDS: METOPROLOL SUCCINATE XL 50 MG TAB PO SCH (10:00)
[2020-05-30] MEDS: LISINOPRIL 5 MG TAB PO SCH (10:00)
[2020-05-30] MEDS: AMIODARONE HCL 200 MG TAB PO SCH (10:00)
[2020-05-30] MEDS: RIVAROXABAN 10 MG TAB PO SCH (10:00)
[2020-05-30] MEDS: UPTRAVI PO SCH ×2 (10:00→22:04)
[2020-05-30] MEDS: ASPirin 81 mg TAB PO SCH (10:00)
[2020-05-30] MEDS: PANTOPRAZOLE 40 MG TAB PO SCH (10:45)
[2020-05-30 12:32] VITALS: BP 117/54
[2020-05-30 17:00] VITALS: BP 112/55
[2020-05-30] MEDS: Glucerna Carbsteady SHAKE Vanilla 8oz PO SCH (17:49)
[2020-05-30 22:00] VITALS: BP 100/40
[2020-05-30] MEDS: ATORVASTATIN 20 MG TAB PO SCH (22:04)
[2020-05-31 05:00] VITALS: BP 121/52
[2020-05-31] MEDS: CLINDAMYCIN 600MG IV 50 ML IV SCH ×3 (05:59→22:10)
[2020-05-31] MEDS: FUROSEMIDE 40 MG/4 ML VIAL IV SCH ×2 (06:01→17:37)
[2020-05-31] MEDS: InsuLIN REG 1unit/0.01ml Soln (100units/ml) SC SCH ×3 (06:22→17:38)
[2020-05-31] MEDS: ACCU-CHEK COMFORT CURVE STRIP VI SCH ×4 (06:23→23:50)
[2020-05-31 07:12] LABS: Basophils # (auto) 0 10 ^3/uL (0-0.2); Eosinophils # (auto) 0 10 ^3/uL (0-0.8); Eosinophils % (auto) 0.3 % (0.0-7.0)
[2020-05-31 07:14] LABS: Basophils % (auto) 0.5 % (0.0-2.0); Hemoglobin 7.2 g/dL (12.2-16.2); Lymphocytes # (auto) 0.7 10 ^3/uL (0.4-5.4); Lymphocytes % (auto) 8.2 % (10.0-50.0); Mean Corpuscular Hemoglobin 21.1 pg (28.0-32.0); Mean Corpuscular Hgb Conc. 31.5 g/dL (32.0-36.0); Monocytes % (auto) 10.9 % (0.0-12.0); Neutrophils # (auto) 7.1 10 ^3/uL (1.6-8.6); Neutrophils % (auto) 80.1 % (37.0-80.0); Nucleated Red Blood Cells % 0.2 %; Platelet Count (auto) 222 10^3/uL (140-450); Red Blood Cells 3.43 10^6/uL (4.0-5.20); White Blood Cell 8.9 10^3/uL (4.4-10.8)
[2020-05-31 07:19] LABS: Red Cell Distribution Width 20.2 % (11.8-14.3)
[2020-05-31 07:26] LABS: Calcium 9.5 mg/dL (8.5-10.1); Potassium 3.8 mmol/L (3.5-5.1)
[2020-05-31 07:28] LABS: BUN/Creatinine Ratio 22.8
[2020-05-31 07:30] LABS: Bilirubin, Total 0.7 mg/dL (0.2-1.0); Total Protein 7.3 g/dL (6.4-8.2)
[2020-05-31] MEDS: Glucerna Carbsteady SHAKE Vanilla 8oz PO SCH ×3 (08:00→17:37)
[2020-05-31 09:00] VITALS: BP 113/45
[2020-05-31] MEDS: cefTRIAXone 1GM/50ML D5W 50 ML IV SCH (09:00)
[2020-05-31] MEDS: UPTRAVI PO SCH ×2 (09:59→22:10)
[2020-05-31] MEDS: ASPirin 81 mg TAB PO SCH (09:59)
[2020-05-31] MEDS: PANTOPRAZOLE 40 MG TAB PO SCH (10:00)
[2020-05-31] MEDS: RIVAROXABAN 10 MG TAB PO SCH (10:00)
[2020-05-31] MEDS: AMIODARONE HCL 200 MG TAB PO SCH (10:00)
[2020-05-31] MEDS: METOPROLOL SUCCINATE XL 50 MG TAB PO SCH (10:00)
[2020-05-31] MEDS: LISINOPRIL 5 MG TAB PO SCH (10:01)
[2020-05-31] MEDS: DOCUSATE SOD 100 MG CAP PO PRN (10:01)
[2020-05-31 13:00] VITALS: BP 110/45
[2020-05-31] MEDS: RIOCIGUAT 2 MG PO SCH ×2 (14:00→22:10)
[2020-05-31 17:00] VITALS: BP 141/64
[2020-05-31 22:00] VITALS: BP 118/53
[2020-05-31] MEDS: ATORVASTATIN 20 MG TAB PO SCH (22:10)
[2020-06-01] VITALS (14 sets, daily range): BP systolic 120–157; BP diastolic 53–80
[2020-06-01] MEDS: InsuLIN REG 1unit/0.01ml Soln (100units/ml) SC SCH ×4 (00:07→17:37)
[2020-06-01] MEDS: ACCU-CHEK COMFORT CURVE STRIP VI SCH ×3 (05:50→17:30)
[2020-06-01] MEDS: RIOCIGUAT 2 MG PO SCH ×3 (06:06→21:56)
[2020-06-01] MEDS: CLINDAMYCIN 600MG IV 50 ML IV SCH ×2 (06:06→13:50)
[2020-06-01] MEDS: FUROSEMIDE 40 MG/4 ML VIAL IV SCH ×2 (06:06→17:23)
[2020-06-01 07:28] LABS: Basophils # (auto) 0.1 10 ^3/uL (0-0.2); Eosinophils # (auto) 0.1 10 ^3/uL (0-0.8); Hematocrit 24.9 % (36.0-46.0)
[2020-06-01 07:31] LABS: Basophils % (auto) 0.7 % (0.0-2.0); Eosinophils % (auto) 1.1 % (0.0-7.0); Lymphocytes # (auto) 0.6 10 ^3/uL (0.4-5.4); Lymphocytes % (auto) 8.6 % (10.0-50.0); Mean Corpuscular Hemoglobin 22.4 pg (28.0-32.0); Mean Corpuscular Hgb Conc. 32.3 g/dL (32.0-36.0); Mean Corpuscular Volume 69.5 fL (80.0-100.0); Monocytes % (auto) 13.9 % (0.0-12.0); Neutrophils # (auto) 5.3 10 ^3/uL (1.6-8.6); Neutrophils % (auto) 75.7 % (37.0-80.0); Nucleated Red Blood Cells % 0.2 %; Platelet Count (auto) 230 10^3/uL (140-450); Red Blood Cells 3.59 10^6/uL (4.0-5.20)
[2020-06-01 07:43] LABS: Albumin 2.7 g/dL (3.4-5.0); Calcium 8.9 mg/dL (8.5-10.1); Potassium 4.1 mmol/L (3.5-5.1)
[2020-06-01 07:45] LABS: Bilirubin, Total 0.7 mg/dL (0.2-1.0); Total Protein 6.8 g/dL (6.4-8.2)
[2020-06-01 07:47] LABS: Red Cell Distribution Width 22.7 % (11.8-14.3)
[2020-06-01] MEDS: LISINOPRIL 5 MG TAB PO SCH (10:06)
[2020-06-01] MEDS: ACETAMINOPHEN 325 MG TAB PO PRN (10:07)
[2020-06-01] MEDS: AMIODARONE HCL 200 MG TAB PO SCH (10:08)
[2020-06-01] MEDS: PANTOPRAZOLE 40 MG TAB PO SCH (10:08)
[2020-06-01] MEDS: DOCUSATE SOD 100 MG CAP PO PRN (10:09)
[2020-06-01] MEDS: METOPROLOL SUCCINATE XL 50 MG TAB PO SCH (10:09)
[2020-06-01] MEDS: cefTRIAXone 1GM/50ML D5W 50 ML IV SCH (10:11)
[2020-06-01] MEDS: Glucerna Carbsteady SHAKE Vanilla 8oz PO SCH ×3 (10:11→18:30)
[2020-06-01] MEDS: UPTRAVI PO SCH ×2 (10:45→21:56)
[2020-06-01] MEDS ORDERED: LACTULOSE 20Gm/30ML SOLN PO PRN (14:00)
[2020-06-01] MEDS: HYDROcodone-ACET 5/325MG TAB PO PRN (15:35)
[2020-06-01] MEDS: PIPERACILLIN-TAZOB 2.25GM 50 ML IV SCH (18:30)
[2020-06-01] MEDS: LINEZOLID 600MG/300ML 300 ML IV SCH (21:55)
[2020-06-01] MEDS: ATORVASTATIN 20 MG TAB PO SCH (21:55)
[2020-06-02] MEDS: PIPERACILLIN-TAZOB 2.25GM 50 ML IV SCH ×5 (00:53→23:22)
[2020-06-02] MEDS: ACCU-CHEK COMFORT CURVE STRIP VI SCH ×5 (00:54→23:22)
[2020-06-02] MEDS: InsuLIN REG 1unit/0.01ml Soln (100units/ml) SC SCH ×5 (00:55→23:25)
[2020-06-02 05:00] VITALS: BP 123/76
[2020-06-02] MEDS: FUROSEMIDE 40 MG/4 ML VIAL IV SCH ×2 (06:07→18:39)
[2020-06-02] MEDS: RIOCIGUAT 2 MG PO SCH ×3 (06:08→21:04)
[2020-06-02 06:29] LABS: Hemoglobin 9.3 g/dL (12.2-16.2); White Blood Cell 7.5 10^3/uL (4.4-10.8)
[2020-06-02 06:31] LABS: Hematocrit 28.4 % (36.0-46.0); Mean Corpuscular Hgb Conc. 32.6 g/dL (32.0-36.0); Mean Corpuscular Volume 70.7 fL (80.0-100.0); Platelet Count (auto) 231 10^3/uL (140-450); Red Blood Cells 4.02 10^6/uL (4.0-5.20)
[2020-06-02 06:44] LABS: BUN/Creatinine Ratio 37.3; Calcium 9.3 mg/dL (8.5-10.1); Potassium 4.3 mmol/L (3.5-5.1)
[2020-06-02 06:47] LABS: Red Cell Distribution Width 23.2 % (11.8-14.3)
[2020-06-02 06:49] LABS: Band Neutrophils % (manual) 0; Basophils % (manual) 0 (0.0-2.0); Blast Cells 0; Metamyelocytes % 0; Myelocytes % 0; Promyelocytes % 0; Reactive Lymphocytes 0
[2020-06-02] MEDS: Glucerna Carbsteady SHAKE Vanilla 8oz PO SCH ×3 (08:00→18:39)
[2020-06-02 08:18] LABS: Eosinophils % (manual) 4 (0-7); Lymphocytes % (manual) 11 (10.0-50.0); Monocytes % (manual) 15 (0-12)
[2020-06-02 09:00] VITALS: BP 146/62
[2020-06-02] MEDS: AMIODARONE HCL 200 MG TAB PO SCH (10:48)
[2020-06-02] MEDS: LISINOPRIL 5 MG TAB PO SCH (10:49)
[2020-06-02] MEDS: METOPROLOL SUCCINATE XL 50 MG TAB PO SCH (10:49)
[2020-06-02] MEDS: PANTOPRAZOLE 40 MG TAB PO SCH (10:50)
[2020-06-02] MEDS: UPTRAVI PO SCH ×2 (10:51→21:04)
[2020-06-02] MEDS: HYDROcodone-ACET 5/325MG TAB PO PRN (10:51)
[2020-06-02] MEDS: LINEZOLID 600MG/300ML 300 ML IV SCH ×2 (11:03→21:13)
[2020-06-02 13:00] VITALS: BP 124/77
[2020-06-02] MEDS ORDERED: PHYTONADIONE(VitK) ORAL Susp 10mg/10ml(1mg/ml) PO ONE (14:00)
[2020-06-02 15:07] LABS: INR 1.1 (0.9-1.15)
[2020-06-02] MEDS: ATORVASTATIN 20 MG TAB PO SCH (21:04)
[2020-06-02 22:00] VITALS: BP 115/64
[2020-06-03 05:00] VITALS: BP 133/72
[2020-06-03] MEDS: FUROSEMIDE 40 MG/4 ML VIAL IV SCH ×2 (06:26→18:14)
[2020-06-03] MEDS: RIOCIGUAT 2 MG PO SCH (06:27)
[2020-06-03] MEDS: ACCU-CHEK COMFORT CURVE STRIP VI SCH ×3 (06:27→18:13)
[2020-06-03] MEDS: PIPERACILLIN-TAZOB 2.25GM 50 ML IV SCH ×4 (06:27→18:13)
[2020-06-03] MEDS: InsuLIN REG 1unit/0.01ml Soln (100units/ml) SC SCH ×3 (06:28→18:13)
[2020-06-03 06:41] LABS: Hematocrit 29.1 % (36.0-46.0); Hemoglobin 9.5 g/dL (12.2-16.2); Mean Corpuscular Hemoglobin 23.3 pg (28.0-32.0); Mean Corpuscular Hgb Conc. 32.7 g/dL (32.0-36.0); Mean Corpuscular Volume 71.1 fL (80.0-100.0); Platelet Count (auto) 250 10^3/uL (140-450); Red Blood Cells 4.09 10^6/uL (4.0-5.20)
[2020-06-03 06:46] LABS: INR 1.03 (0.9-1.15)
[2020-06-03 06:54] LABS: Albumin 2.5 g/dL (3.4-5.0); Calcium 9.3 mg/dL (8.5-10.1); Potassium 4.1 mmol/L (3.5-5.1)
[2020-06-03 06:59] LABS: BUN/Creatinine Ratio 34.6; Bilirubin, Total 0.6 mg/dL (0.2-1.0); Total Protein 6.5 g/dL (6.4-8.2)
[2020-06-03 07:07] LABS: Band Neutrophils % (manual) 0; Basophils % (manual) 0 (0.0-2.0); Blast Cells 0; Reactive Lymphocytes 0; Red Cell Distribution Width 23.9 % (11.8-14.3)
[2020-06-03] MEDS: Glucerna Carbsteady SHAKE Vanilla 8oz PO SCH ×3 (08:13→18:13)
[2020-06-03 09:08] VITALS: BP 120/80
[2020-06-03 09:24] LABS: Eosinophils % (manual) 3 (0-7); Lymphocytes % (manual) 10 (10.0-50.0); Metamyelocytes % 3; Monocytes % (manual) 12 (0-12); Myelocytes % 1; Promyelocytes % 2
[2020-06-03] MEDS: METOPROLOL SUCCINATE XL 50 MG TAB PO SCH (10:17)
[2020-06-03] MEDS: PANTOPRAZOLE 40 MG TAB PO SCH (10:18)
[2020-06-03] MEDS: AMIODARONE HCL 200 MG TAB PO SCH (10:18)
[2020-06-03] MEDS: LINEZOLID 600MG/300ML 300 ML IV SCH ×2 (10:19→21:40)
[2020-06-03] MEDS: LISINOPRIL 5 MG TAB PO SCH (10:19)
[2020-06-03] MEDS: UPTRAVI PO SCH ×2 (10:20→21:40)
[2020-06-03 13:00] VITALS: BP 127/63
[2020-06-03] MEDS ORDERED: PATIENTS OWN MEDICATION (EPOGEN 10,000 UNITS) SUBCUT ONE (15:30)
[2020-06-03] MEDS ORDERED: IRON SUCROSE COMPLEX 200 MG in SODIUM CHL 0.9% 100 ML IV ONE (15:30)
[2020-06-03] MEDS ORDERED: EPOETIN ALFA-EPBX 10,000 UNIT/1ML VIAL SC ONE ×2 (15:30→21:00)
[2020-06-03] MEDS: ADEMPAS 2 MG PO SCH ×2 (15:32→21:40)
[2020-06-03 17:16] VITALS: BP 133/60
[2020-06-03] MEDS: ATORVASTATIN 20 MG TAB PO SCH (21:40)
[2020-06-03 22:00] VITALS: BP 136/63
[2020-06-04] MEDS: ACCU-CHEK COMFORT CURVE STRIP VI SCH ×5 (00:20→23:55)
[2020-06-04] MEDS: PIPERACILLIN-TAZOB 2.25GM 50 ML IV SCH ×5 (00:20→23:55)
[2020-06-04] MEDS: InsuLIN REG 1unit/0.01ml Soln (100units/ml) SC SCH ×4 (00:43→17:38)
[2020-06-04] MEDS: HYDROcodone-ACET 5/325MG TAB PO PRN ×2 (04:36→11:27)
[2020-06-04 05:00] VITALS: BP 126/58
[2020-06-04] MEDS: FUROSEMIDE 40 MG/4 ML VIAL IV SCH ×2 (05:56→17:36)
[2020-06-04] MEDS: ADEMPAS 2 MG PO SCH ×3 (05:57→21:23)
[2020-06-04] MEDS: Glucerna Carbsteady SHAKE Vanilla 8oz PO SCH ×3 (08:00→18:15)
[2020-06-04 09:00] VITALS: BP 128/58
[2020-06-04] MEDS: PANTOPRAZOLE 40 MG TAB PO SCH (09:54)
[2020-06-04] MEDS: UPTRAVI PO SCH ×2 (09:54→21:23)
[2020-06-04] MEDS: LINEZOLID 600MG/300ML 300 ML IV SCH ×2 (09:54→21:23)
[2020-06-04] MEDS: AMIODARONE HCL 200 MG TAB PO SCH (09:55)
[2020-06-04] MEDS: LISINOPRIL 5 MG TAB PO SCH (09:56)
[2020-06-04] MEDS: METOPROLOL SUCCINATE XL 50 MG TAB PO SCH (09:56)
[2020-06-04 12:39] VITALS: BP 136/59
[2020-06-04] MEDS: ENOXAPARIN SOD 40 MG/0.4 ML SYRINGE SC SCH (14:24)
[2020-06-04] MEDS: methylPREDNISolone SOD SUCC 40 MG/ML VL IV SCH ×2 (14:24→21:23)
[2020-06-04 16:15] VITALS: BP 135/63
[2020-06-04] MEDS: ATORVASTATIN 20 MG TAB PO SCH (21:23)
[2020-06-04 22:00] VITALS: BP 159/74
[2020-06-04] MEDS: IPRATROPIUM BROM 0.5 MG/2.5ML INH SOL NEB SCH (22:52)
[2020-06-05] VITALS: BP 159/74
[2020-06-05 05:00] VITALS: BP 145/74
[2020-06-05] MEDS: methylPREDNISolone SOD SUCC 40 MG/ML VL IV SCH ×3 (05:34→22:00)
[2020-06-05] MEDS: PIPERACILLIN-TAZOB 2.25GM 50 ML IV SCH ×3 (05:34→17:43)
[2020-06-05] MEDS: FUROSEMIDE 40 MG/4 ML VIAL IV SCH ×2 (05:34→17:43)
[2020-06-05] MEDS: ACCU-CHEK COMFORT CURVE STRIP VI SCH ×3 (05:35→17:44)
[2020-06-05] MEDS: ADEMPAS 2 MG PO SCH ×3 (05:35→22:01)
[2020-06-05] MEDS: InsuLIN REG 1unit/0.01ml Soln (100units/ml) SC SCH ×4 (05:48→17:44)
[2020-06-05] MEDS: IPRATROPIUM BROM 0.5 MG/2.5ML INH SOL NEB SCH ×3 (08:00→19:50)
[2020-06-05 09:00] VITALS: BP 138/63
[2020-06-05] MEDS: Glucerna Carbsteady SHAKE Vanilla 8oz PO SCH ×3 (09:10→17:43)
[2020-06-05] MEDS: AMIODARONE HCL 200 MG TAB PO SCH (10:46)
[2020-06-05] MEDS: PANTOPRAZOLE 40 MG TAB PO SCH (10:46)
[2020-06-05] MEDS: UPTRAVI PO SCH ×2 (10:46→22:01)
[2020-06-05] MEDS: LINEZOLID 600MG/300ML 300 ML IV SCH ×2 (10:46→22:01)
[2020-06-05] MEDS: ENOXAPARIN SOD 40 MG/0.4 ML SYRINGE SC SCH (10:47)
[2020-06-05] MEDS: LISINOPRIL 5 MG TAB PO SCH (10:47)
[2020-06-05] MEDS: METOPROLOL SUCCINATE XL 50 MG TAB PO SCH (10:47)
[2020-06-05 13:00] VITALS: BP 148/63
[2020-06-05 17:00] VITALS: BP 131/60
[2020-06-05 22:00] VITALS: BP 150/66
[2020-06-05] MEDS: ATORVASTATIN 20 MG TAB PO SCH (22:00)
[2020-06-06] MEDS: InsuLIN REG 1unit/0.01ml Soln (100units/ml) SC SCH ×4 (01:43→18:49)
[2020-06-06 05:00] VITALS: BP 147/67
[2020-06-06] MEDS: ACCU-CHEK COMFORT CURVE STRIP VI SCH ×4 (06:20→18:00)
[2020-06-06] MEDS: PIPERACILLIN-TAZOB 2.25GM 50 ML IV SCH ×4 (06:23→18:33)
[2020-06-06] MEDS: methylPREDNISolone SOD SUCC 40 MG/ML VL IV SCH ×3 (06:27→21:47)
[2020-06-06] MEDS: FUROSEMIDE 40 MG/4 ML VIAL IV SCH ×2 (06:27→18:22)
[2020-06-06] MEDS: ADEMPAS 2 MG PO SCH ×3 (06:28→21:47)
[2020-06-06 06:39] LABS: Basophils # (auto) 0 10 ^3/uL (0-0.2); Basophils % (auto) 0.2 % (0.0-2.0); Eosinophils # (auto) 0 10 ^3/uL (0-0.8); Lymphocytes # (auto) 0.5 10 ^3/uL (0.4-5.4); Monocytes # (auto) 0.3 10 ^3/uL (0-1.3); Neutrophils # (auto) 10.4 10 ^3/uL (1.6-8.6)
[2020-06-06 06:43] LABS: Hematocrit 31.5 % (36.0-46.0); Lymphocytes % (auto) 4.1 % (10.0-50.0); Mean Corpuscular Hemoglobin 22.9 pg (28.0-32.0); Mean Corpuscular Hgb Conc. 31.8 g/dL (32.0-36.0); Neutrophils % (auto) 92.7 % (37.0-80.0); Nucleated Red Blood Cells % 0.1 %; Platelet Count (auto) 325 10^3/uL (140-450); Red Blood Cells 4.37 10^6/uL (4.0-5.20); White Blood Cell 11.2 10^3/uL (4.4-10.8)
[2020-06-06 06:52] LABS: Albumin 2.8 g/dL (3.4-5.0); Calcium 9.9 mg/dL (8.5-10.1); Potassium 4.2 mmol/L (3.5-5.1)
[2020-06-06 06:55] LABS: BUN/Creatinine Ratio 39.2; Bilirubin, Total 0.5 mg/dL (0.2-1.0); Total Protein 7.4 g/dL (6.4-8.2)
[2020-06-06 06:57] LABS: Red Cell Distribution Width 24.3 % (11.8-14.3)
[2020-06-06] MEDS: IPRATROPIUM BROM 0.5 MG/2.5ML INH SOL NEB SCH ×3 (07:50→22:27)
[2020-06-06 08:00] VITALS: BP 151/62
[2020-06-06 09:00] VITALS: BP 151/62
[2020-06-06] MEDS: Glucerna Carbsteady SHAKE Vanilla 8oz PO SCH ×3 (09:02→18:23)
[2020-06-06] MEDS: ENOXAPARIN SOD 40 MG/0.4 ML SYRINGE SC SCH (10:00)
[2020-06-06] MEDS: METOPROLOL SUCCINATE XL 50 MG TAB PO SCH (11:33)
[2020-06-06] MEDS: AMIODARONE HCL 200 MG TAB PO SCH (11:33)
[2020-06-06] MEDS: PANTOPRAZOLE 40 MG TAB PO SCH (11:33)
[2020-06-06] MEDS: LISINOPRIL 5 MG TAB PO SCH (11:34)
[2020-06-06] MEDS: UPTRAVI PO SCH ×2 (11:35→18:33)
[2020-06-06] MEDS: LINEZOLID 600MG/300ML 300 ML IV SCH ×2 (11:44→21:47)
[2020-06-06 14:43] VITALS: BP 157/75
[2020-06-06 16:46] VITALS: BP 122/72
[2020-06-06] MEDS: ATORVASTATIN 20 MG TAB PO SCH (21:47)
[2020-06-06 22:00] VITALS: BP 145/71
[2020-06-07] MEDS: ACCU-CHEK COMFORT CURVE STRIP VI SCH ×5 (00:08→23:37)
[2020-06-07] MEDS: InsuLIN REG 1unit/0.01ml Soln (100units/ml) SC SCH ×5 (00:12→23:40)
[2020-06-07] MEDS: PIPERACILLIN-TAZOB 2.25GM 50 ML IV SCH ×5 (00:24→23:59)
[2020-06-07 05:00] VITALS: BP 112/51
[2020-06-07 05:17] LABS: Basophils # (auto) 0 10 ^3/uL (0-0.2); Eosinophils # (auto) 0 10 ^3/uL (0-0.8); Hemoglobin 10.7 g/dL (12.2-16.2); Lymphocytes # (auto) 0.3 10 ^3/uL (0.4-5.4); Monocytes # (auto) 0.4 10 ^3/uL (0-1.3); White Blood Cell 7.9 10^3/uL (4.4-10.8)
[2020-06-07 05:21] LABS: Hematocrit 33.4 % (36.0-46.0); Lymphocytes % (auto) 3.8 % (10.0-50.0); Mean Corpuscular Hemoglobin 23.4 pg (28.0-32.0); Mean Corpuscular Hgb Conc. 32.2 g/dL (32.0-36.0); Mean Corpuscular Volume 72.6 fL (80.0-100.0); Monocytes % (auto) 4.5 % (0.0-12.0); Neutrophils # (auto) 7.3 10 ^3/uL (1.6-8.6); Neutrophils % (auto) 91.7 % (37.0-80.0); Platelet Count (auto) 325 10^3/uL (140-450); Red Blood Cells 4.59 10^6/uL (4.0-5.20)
[2020-06-07 05:32] LABS: BUN/Creatinine Ratio 43.2; Calcium 8.8 mg/dL (8.5-10.1)
[2020-06-07] MEDS: methylPREDNISolone SOD SUCC 40 MG/ML VL IV SCH ×3 (05:40→21:22)
[2020-06-07] MEDS: UPTRAVI PO SCH ×2 (05:40→17:59)
[2020-06-07] MEDS: FUROSEMIDE 40 MG/4 ML VIAL IV SCH ×2 (05:40→17:58)
[2020-06-07] MEDS: ADEMPAS 2 MG PO SCH ×3 (05:40→21:23)
[2020-06-07 05:50] LABS: Red Cell Distribution Width 24.3 % (11.8-14.3)
[2020-06-07] MEDS: IPRATROPIUM BROM 0.5 MG/2.5ML INH SOL NEB SCH ×3 (07:54→22:07)
[2020-06-07 09:00] VITALS: BP 138/62
[2020-06-07] MEDS: Glucerna Carbsteady SHAKE Vanilla 8oz PO SCH ×3 (09:00→17:59)
[2020-06-07] MEDS: PANTOPRAZOLE 40 MG TAB PO SCH (09:31)
[2020-06-07] MEDS: METOPROLOL SUCCINATE XL 50 MG TAB PO SCH (09:31)
[2020-06-07] MEDS: AMIODARONE HCL 200 MG TAB PO SCH (09:32)
[2020-06-07] MEDS: LISINOPRIL 5 MG TAB PO SCH (09:32)
[2020-06-07] MEDS: LINEZOLID 600MG/300ML 300 ML IV SCH ×2 (09:33→21:23)
[2020-06-07] MEDS: ENOXAPARIN SOD 40 MG/0.4 ML SYRINGE SC SCH (09:34)
[2020-06-07 13:00] VITALS: BP 129/49
[2020-06-07 17:00] VITALS: BP 107/53
[2020-06-07] MEDS: ATORVASTATIN 20 MG TAB PO SCH (21:23)
[2020-06-07 22:00] VITALS: BP 112/47
[2020-06-07 22:50] VITALS: BP 107/53
[2020-06-08 05:00] VITALS: BP 125/55
[2020-06-08] MEDS: methylPREDNISolone SOD SUCC 40 MG/ML VL IV SCH ×2 (05:50→14:17)
[2020-06-08] MEDS: UPTRAVI PO SCH (05:50)
[2020-06-08] MEDS: FUROSEMIDE 40 MG/4 ML VIAL IV SCH (05:50)
[2020-06-08] MEDS: PIPERACILLIN-TAZOB 2.25GM 50 ML IV SCH ×2 (05:50→11:32)
[2020-06-08] MEDS: ADEMPAS 2 MG PO SCH ×2 (05:52→14:18)
[2020-06-08] MEDS: ACCU-CHEK COMFORT CURVE STRIP VI SCH ×2 (06:20→11:34)
[2020-06-08] MEDS: InsuLIN REG 1unit/0.01ml Soln (100units/ml) SC SCH ×2 (06:23→11:44)
[2020-06-08 07:18] LABS: Basophils # (auto) 0 10 ^3/uL (0-0.2); Basophils % (auto) 0.1 % (0.0-2.0); Eosinophils # (auto) 0 10 ^3/uL (0-0.8); Hemoglobin 9.7 g/dL (12.2-16.2); Lymphocytes # (auto) 0.5 10 ^3/uL (0.4-5.4); Nucleated Red Blood Cells % 0.3 %
[2020-06-08 07:19] LABS: Hematocrit 29.3 % (36.0-46.0); Lymphocytes % (auto) 7.1 % (10.0-50.0); Mean Corpuscular Hemoglobin 23.7 pg (28.0-32.0); Mean Corpuscular Hgb Conc. 33.1 g/dL (32.0-36.0); Mean Corpuscular Volume 71.7 fL (80.0-100.0); Monocytes # (auto) 0.3 10 ^3/uL (0-1.3); Monocytes % (auto) 3.5 % (0.0-12.0); Neutrophils # (auto) 6.4 10 ^3/uL (1.6-8.6); Neutrophils % (auto) 89.3 % (37.0-80.0); Platelet Count (auto) 263 10^3/uL (140-450); Red Blood Cells 4.09 10^6/uL (4.0-5.20); White Blood Cell 7.2 10^3/uL (4.4-10.8)
[2020-06-08 07:34] LABS: BUN/Creatinine Ratio 50.4; Calcium 8.5 mg/dL (8.5-10.1)
[2020-06-08 07:35] VITALS: BP 142/66
[2020-06-08] MEDS: Glucerna Carbsteady SHAKE Vanilla 8oz PO SCH ×2 (07:43→12:05)
[2020-06-08] MEDS: IPRATROPIUM BROM 0.5 MG/2.5ML INH SOL NEB SCH ×2 (08:22→14:04)
[2020-06-08] MEDS: LINEZOLID 600MG/300ML 300 ML IV SCH (09:24)
[2020-06-08] MEDS: AMIODARONE HCL 200 MG TAB PO SCH (09:25)
[2020-06-08] MEDS: PANTOPRAZOLE 40 MG TAB PO SCH (09:25)
[2020-06-08] MEDS: METOPROLOL SUCCINATE XL 50 MG TAB PO SCH (09:25)
[2020-06-08] MEDS: LISINOPRIL 5 MG TAB PO SCH (09:26)
[2020-06-08] MEDS: ENOXAPARIN SOD 40 MG/0.4 ML SYRINGE SC SCH (09:27)
[2020-06-08 13:00] VITALS: BP 122/50
[2020-06-08 13:15] VITALS: BP 122/50
== END 2020-06-08 15:00 | disposition home or self-care (01) | DRG 871 ==
LOC: EDBD 15:35 → ER 15:35 → TELE 17:59 → TELE-WESTW 05-30 05:12
PROVIDERS: ADMIT Hospitalist; ATTEND Internal Medicine
PROC: 30233N1 Transfusion of Nonautologous Red Blood Cells into Peripheral Vein, Percutaneous Approach (ICD-10-PCS; principal; 2020-06-01)
PROC: 05HC33Z Insertion of Infusion Device into Left Basilic Vein, Percutaneous Approach (ICD-10-PCS; 2020-06-01)
PROC: B54NZZA Ultrasonography of Left Upper Extremity Veins, Guidance (ICD-10-PCS; 2020-06-01)
DX: A41.81 Sepsis due to Enterococcus (principal); J96.21 Acute and chronic respiratory failure with hypoxia; J18.9 Pneumonia, unspecified organism; N17.0 Acute kidney failure with tubular necrosis; E44.0 Moderate protein-calorie malnutrition; I48.19 Other persistent atrial fibrillation; D68.4 Acquired coagulation factor deficiency; E87.1 Hypo-osmolality and hyponatremia; I13.0 Hypertensive heart and chronic kidney disease with heart failure and stage 1 through stage 4 chronic kidney disease, or unspecified chronic kidney disease; J90 Pleural effusion, not elsewhere classified; Z20.822 Contact with and (suspected) exposure to COVID-19; R65.20 Severe sepsis without septic shock; I50.82 Biventricular heart failure; I27.21 Secondary pulmonary arterial hypertension; E78.5 Hyperlipidemia, unspecified; N18.31 Chronic kidney disease, stage 3a; K21.9 Gastro-esophageal reflux disease without esophagitis; D63.8 Anemia in other chronic diseases classified elsewhere; K59.00 Constipation, unspecified; I50.9 Heart failure, unspecified; E11.21 Type 2 diabetes mellitus with diabetic nephropathy; I49.5 Sick sinus syndrome; E11.22 Type 2 diabetes mellitus with diabetic chronic kidney disease; E11.65 Type 2 diabetes mellitus with hyperglycemia; Z51.5 Encounter for palliative care; Z66 Do not resuscitate; Z88.1 Allergy status to other antibiotic agents; Z68.29 Body mass index [BMI] 29.0-29.9, adult; Z88.2 Allergy status to sulfonamides; Z79.01 Long term (current) use of anticoagulants; Z95.0 Presence of cardiac pacemaker; Z95.2 Presence of prosthetic heart valve; Z79.84 Long term (current) use of oral hypoglycemic drugs; Z79.899 Other long term (current) drug therapy
CPT/HCPCS: 36415; 36600; 51702; 71045; 76604; 76942; 80048; 80053; 80061; 80307; 81001; 82270; 82805; 82962; 83036; 83605; 83735; 83986; 84443; 84484; 85007; 85025; 85027; 85610; 85730; 86850; 86900; 86901; 86920; 87040; 87077; 87186; 87205; 87426; 89051; 93005; 94640; 96365; 96368; 96375; 97116; 97530; 99291; G0378; J0696; J1756; J1815; J2405; J2543; J3490; P9047

== ENCOUNTER 2020-06-18 15:00 | Emergency (ER) | payer MEDICARE, BC ==
[~2020-06-18] VITALS: Ht 165.1 cm; Wt 79.4 kg
[2020-06-18] MEDS ORDERED: SODIUM CHLORIDE 0.9% 500 ML IV ONE (15:30)
[2020-06-18 15:49] LABS: Lymphocytes # (auto) 0.8 10 ^3/uL (0.4-5.4); Lymphocytes % (auto) 10.6 % (10.0-50.0); Monocytes # (auto) 0.7 10 ^3/uL (0-1.3); Neutrophils # (auto) 5.7 10 ^3/uL (1.6-8.6); Red Blood Cells 4.07 10^6/uL (4.0-5.20)
[2020-06-18 15:51] LABS: Basophils # (auto) 0.1 10 ^3/uL (0-0.2); Basophils % (auto) 0.8 % (0.0-2.0); Eosinophils # (auto) 0 10 ^3/uL (0-0.8); Eosinophils % (auto) 0.5 % (0.0-7.0); Hemoglobin 9.6 g/dL (12.2-16.2); Mean Corpuscular Hemoglobin 23.6 pg (28.0-32.0); Mean Corpuscular Hgb Conc. 32.1 g/dL (32.0-36.0); Mean Corpuscular Volume 73.6 fL (80.0-100.0); Monocytes % (auto) 9.9 % (0.0-12.0); Neutrophils % (auto) 78.2 % (37.0-80.0); Nucleated Red Blood Cells % 0.2 %; Platelet Count (auto) 234 10^3/uL (140-450); White Blood Cell 7.3 10^3/uL (4.4-10.8)
[2020-06-18 15:58] LABS: Urine Bacteria NONE SEEN /hpf (None Seen); Urine Blood Negative /uL (Negative); Urine Hyaline Cast FEW /lpf (0 - 2); Urine Specific Gravity 1.006 (1.001-1.035); Urine WBC <1 /hpf (0 - 5)
[2020-06-18 16:00] LABS: Red Cell Distribution Width 26.7 % (11.8-14.3)
[2020-06-18 16:08] LABS: Albumin 2.9 g/dL (3.4-5.0); Anion Gap 6 (5-15); Blood Urea Nitrogen 21 mg/dL (7-18); Calcium 9.1 mg/dL (8.5-10.1); Carbon Dioxide 29 mmol/L (21-32); Chloride 106 mmol/L (98-107); Glucose 143 mg/dL (74-106); Potassium 4.4 mmol/L (3.5-5.1); Sodium 141 mmol/L (136-145)
[2020-06-18 16:13] LABS: Alanine Aminotransferase 34 U/L (13-56); Alkaline Phosphatase 104 U/L (45-117); Aspartate Aminotransferase 21 U/L (15-37); BUN/Creatinine Ratio 18.9; Bilirubin, Total 0.6 mg/dL (0.2-1.0); CRP High Sensitivity 0.87 mg/dL (< 0.3); GFR African American 60 mL/min; GFR Non-African American 49 mL/min; Total Protein 6.6 g/dL (6.4-8.2)
[2020-06-18 21:30] VITALS: BP 144/63
== END 2020-06-18 21:45 | disposition home or self-care (01) ==
LOC: EDBD 15:00 → ER 15:00 → EDUNIT# 15:00 → ER 21:45
DX: D64.9 Anemia, unspecified (principal); R55 Syncope and collapse; E11.9 Type 2 diabetes mellitus without complications; I10 Essential (primary) hypertension; Z20.822 Contact with and (suspected) exposure to COVID-19
CPT/HCPCS: 36415; 70450; 71045; 74176; 80053; 81001; 82728; 84484; 85025; 85379; 86141; 87426; 93005; 96360; 99291; C9803; J7030; U0003

== ENCOUNTER → 2020-06-23 | Outpatient (CLI) | payer MEDICARE, BC | END | disposition home or self-care (01) | LOC: Rad HDHVI 11:52 | PROVIDERS: ATTEND Internal Medicine Cardiovascular Disease | DX: I08.1 Rheumatic disorders of both mitral and tricuspid valves (principal); I11.9 Hypertensive heart disease without heart failure; I48.0 Paroxysmal atrial fibrillation | CPT/HCPCS: 93306 ==

== ENCOUNTER → 2020-07-16 | Outpatient (CLI) | payer MEDICARE, BC ==
[~2020-07-16] MED LIST changes: +CYANOCOBALAMIN (B-12) 1000 MCG/1 ML VIAL IM ONE; +CYANOCOBALAMIN (B-12) 1000 MCG/1 ML VIAL ONE
[2020-07-16 10:30] VITALS: BP 151/64
[2020-07-16 11:09] VITALS: BP 136/72
[2020-07-16 12:09] LABS: Basophils # (auto) 0.1 10 ^3/uL (0-0.2); Basophils % (auto) 1.3 % (0.0-2.0); Eosinophils # (auto) 0.1 10 ^3/uL (0-0.8); Hemoglobin 11.6 g/dL (12.2-16.2); Lymphocytes # (auto) 1.4 10 ^3/uL (0.4-5.4); Mean Corpuscular Volume 77.2 fL (80.0-100.0); Monocytes # (auto) 0.6 10 ^3/uL (0-1.3)
[2020-07-16 12:12] LABS: Eosinophils % (auto) 1.2 % (0.0-7.0); Hematocrit 35.7 % (36.0-46.0); Lymphocytes % (auto) 20.8 % (10.0-50.0); Mean Corpuscular Hemoglobin 25.2 pg (28.0-32.0); Mean Corpuscular Hgb Conc. 32.6 g/dL (32.0-36.0); Monocytes % (auto) 8.9 % (0.0-12.0); Neutrophils # (auto) 4.7 10 ^3/uL (1.6-8.6); Neutrophils % (auto) 67.8 % (37.0-80.0); Nucleated Red Blood Cells % 0.4 %; Platelet Count (auto) 225 10^3/uL (140-450); Red Blood Cells 4.62 10^6/uL (4.0-5.20); White Blood Cell 6.9 10^3/uL (4.4-10.8)
[2020-07-16 12:18] LABS: Red Cell Distribution Width 27.1 % (11.8-14.3)
[2020-07-16 12:36] LABS: Albumin 3.6 g/dL (3.4-5.0)
[2020-07-16 12:41] LABS: BUN/Creatinine Ratio 28.4; Bilirubin, Total 0.6 mg/dL (0.2-1.0); Calcium 9.9 mg/dL (8.5-10.1); Magnesium 2.6 mg/dL (1.6-2.6); Total Protein 7.2 g/dL (6.4-8.2)
== END | disposition home or self-care (01) ==
LOC: CHF HDHVI 10:31
PROVIDERS: ATTEND Internal Medicine Cardiovascular Disease
DX: I27.0 Primary pulmonary hypertension (principal); I48.0 Paroxysmal atrial fibrillation; D64.9 Anemia, unspecified; I50.82 Biventricular heart failure; E11.22 Type 2 diabetes mellitus with diabetic chronic kidney disease; N18.31 Chronic kidney disease, stage 3a; K21.9 Gastro-esophageal reflux disease without esophagitis; E78.5 Hyperlipidemia, unspecified; Z79.01 Long term (current) use of anticoagulants; Z79.84 Long term (current) use of oral hypoglycemic drugs; Z79.899 Other long term (current) drug therapy
CPT/HCPCS: 36415; 80053; 82306; 82607; 83036; 83735; 83880; 85025; 94618; 96372; G0463; J3420

== ENCOUNTER → 2020-07-21 | Outpatient (CLI) | payer MEDICARE, BC ==
[~2020-07-21] MED LIST changes: -CYANOCOBALAMIN (B-12) 1000 MCG/1 ML VIAL IM ONE; -CYANOCOBALAMIN (B-12) 1000 MCG/1 ML VIAL ONE
== END | disposition home or self-care (01) ==
LOC: LAB 10:47
PROVIDERS: ATTEND Internal Medicine
DX: N39.0 Urinary tract infection, site not specified (principal)
CPT/HCPCS: 87086

== ENCOUNTER → 2020-08-10 | Outpatient (CLI) | payer MEDICARE, BC ==
[~2020-08-10] MED LIST changes: +CYANOCOBALAMIN (B-12) 1000 MCG/1 ML VIAL IM ONE; +CYANOCOBALAMIN (B-12) 1000 MCG/1 ML VIAL ONE; +FUROSEMIDE 40 MG/4 ML VIAL IV ONE; +FUROSEMIDE 40 MG/4 ML VIAL ONE; +POTASSIUM CHL 10 Meq TABLET PO ONE; +POTASSIUM CHL 20 Meq TABLET PO ONE
[2020-08-10 10:34] VITALS: BP 125/56
[2020-08-10 12:11] VITALS: BP 119/57
[2020-08-10 15:36] LABS: Basophils # (auto) 0.1 10 ^3/uL (0-0.2); Hemoglobin 10.7 g/dL (12.2-16.2); Neutrophils # (auto) 5.5 10 ^3/uL (1.6-8.6)
[2020-08-10 15:39] LABS: Basophils % (auto) 1.2 % (0.0-2.0); Eosinophils # (auto) 0.1 10 ^3/uL (0-0.8); Eosinophils % (auto) 0.7 % (0.0-7.0); Hematocrit 33.2 % (36.0-46.0); Lymphocytes # (auto) 1.1 10 ^3/uL (0.4-5.4); Mean Corpuscular Hemoglobin 24.9 pg (28.0-32.0); Mean Corpuscular Hgb Conc. 32.3 g/dL (32.0-36.0); Mean Corpuscular Volume 77.1 fL (80.0-100.0); Monocytes % (auto) 12.7 % (0.0-12.0); Neutrophils % (auto) 71.4 % (37.0-80.0); Platelet Count (auto) 250 10^3/uL (140-450); White Blood Cell 7.6 10^3/uL (4.4-10.8)
[2020-08-10 15:43] LABS: Calcium 9.2 mg/dL (8.5-10.1); Magnesium 2.2 mg/dL (1.6-2.6)
[2020-08-10 15:46] LABS: BUN/Creatinine Ratio 20.9
[2020-08-10 16:08] LABS: Red Cell Distribution Width 22.3 % (11.8-14.3)
[2020-08-11 09:04] LABS: Albumin 3.5 g/dL (3.4-5.0); Bilirubin, Direct 0.2 mg/dL (0-0.2); Bilirubin, Total 0.8 mg/dL (0.2-1.0); Total Protein 7.1 g/dL (6.4-8.2)
== END | disposition home or self-care (01) ==
LOC: CHF HDHVI 10:39
PROVIDERS: ATTEND Internal Medicine Cardiovascular Disease
DX: I27.21 Secondary pulmonary arterial hypertension (principal); R53.83 Other fatigue; R60.9 Edema, unspecified; E87.6 Hypokalemia; R06.02 Shortness of breath; I13.10 Hypertensive heart and chronic kidney disease without heart failure, with stage 1 through stage 4 chronic kidney disease, or unspecified chronic kidney disease; E11.22 Type 2 diabetes mellitus with diabetic chronic kidney disease; N18.31 Chronic kidney disease, stage 3a; I48.0 Paroxysmal atrial fibrillation; K21.9 Gastro-esophageal reflux disease without esophagitis; E78.5 Hyperlipidemia, unspecified; Z79.01 Long term (current) use of anticoagulants; Z79.84 Long term (current) use of oral hypoglycemic drugs; Z79.899 Other long term (current) drug therapy
CPT/HCPCS: 36415; 71046; 80048; 80076; 83735; 83880; 85025; 96372; 96374; G0463; J1940; J3420

== ENCOUNTER → 2020-08-12 | Outpatient (CLI) | payer MEDICARE, BC ==
[~2020-08-12] VITALS: Ht 30.5 cm; Wt 0.5 kg
[~2020-08-12] MED LIST changes: +BUMETANIDE 1mg/4ml VIAL (0.25mg/ml) ONE; +BUMETANIDE 2.5mg/10ml (0.25 mg/ml) INJ IV ONE; -CYANOCOBALAMIN (B-12) 1000 MCG/1 ML VIAL IM ONE; -CYANOCOBALAMIN (B-12) 1000 MCG/1 ML VIAL ONE; -FUROSEMIDE 40 MG/4 ML VIAL IV ONE; -FUROSEMIDE 40 MG/4 ML VIAL ONE
[2020-08-12 10:19] VITALS: BP 135/57
[2020-08-12 12:10] VITALS: BP 132/76
== END | disposition home or self-care (01) ==
LOC: CHF HDHVI 10:18
PROVIDERS: ATTEND Internal Medicine Cardiovascular Disease
DX: R60.0 Localized edema (principal); R06.02 Shortness of breath; I13.10 Hypertensive heart and chronic kidney disease without heart failure, with stage 1 through stage 4 chronic kidney disease, or unspecified chronic kidney disease; E11.22 Type 2 diabetes mellitus with diabetic chronic kidney disease; N18.31 Chronic kidney disease, stage 3a; I48.0 Paroxysmal atrial fibrillation; K21.9 Gastro-esophageal reflux disease without esophagitis; E78.5 Hyperlipidemia, unspecified; R53.83 Other fatigue; Z79.01 Long term (current) use of anticoagulants; Z79.84 Long term (current) use of oral hypoglycemic drugs; Z79.899 Other long term (current) drug therapy
CPT/HCPCS: 36415; 71046; 82565; 83880; 84132; 84520; 96374; G0463; J3490; 96372

== ENCOUNTER → 2020-09-07 | Outpatient (CLI) | payer MEDICARE, BC ==
[~2020-09-07] MED LIST changes: -BUMETANIDE 1mg/4ml VIAL (0.25mg/ml) ONE; -BUMETANIDE 2.5mg/10ml (0.25 mg/ml) INJ IV ONE; +CYANOCOBALAMIN (B-12) 1000 MCG/1 ML VIAL IM ONE; +CYANOCOBALAMIN (B-12) 1000 MCG/1 ML VIAL ONE; -POTASSIUM CHL 10 Meq TABLET PO ONE; -POTASSIUM CHL 20 Meq TABLET PO ONE; +SILVER SULFADIAZINE 1 % TOPICAL CREAM 50GM TOP ONE
[2020-09-07 10:51] VITALS: BP 131/64
[2020-09-07 11:15] VITALS: BP 136/65
[2020-09-07 15:30] LABS: Basophils # (auto) 0.1 10 ^3/uL (0-0.2); Eosinophils # (auto) 0.1 10 ^3/uL (0-0.8); Eosinophils % (auto) 0.8 % (0.0-7.0); Lymphocytes # (auto) 1.3 10 ^3/uL (0.4-5.4); Neutrophils # (auto) 6.2 10 ^3/uL (1.6-8.6); Nucleated Red Blood Cells % 0.1 %
[2020-09-07 15:32] LABS: Basophils % (auto) 0.9 % (0.0-2.0); Hematocrit 36.2 % (36.0-46.0); Hemoglobin 11.7 g/dL (12.2-16.2); Lymphocytes % (auto) 15.6 % (10.0-50.0); Mean Corpuscular Hemoglobin 24.3 pg (28.0-32.0); Mean Corpuscular Hgb Conc. 32.4 g/dL (32.0-36.0); Mean Corpuscular Volume 74.9 fL (80.0-100.0); Monocytes # (auto) 0.8 10 ^3/uL (0-1.3); Monocytes % (auto) 9.2 % (0.0-12.0); Neutrophils % (auto) 73.5 % (37.0-80.0); Platelet Count (auto) 247 10^3/uL (140-450); Red Blood Cells 4.84 10^6/uL (4.0-5.20); Red Cell Distribution Width 19.9 % (11.8-14.3); White Blood Cell 8.4 10^3/uL (4.4-10.8)
[2020-09-07 15:44] LABS: Albumin 3.6 g/dL (3.4-5.0); Calcium 9.6 mg/dL (8.5-10.1); Potassium 4.7 mmol/L (3.5-5.1)
[2020-09-07 15:55] LABS: BUN/Creatinine Ratio 21.1; Bilirubin, Total 0.6 mg/dL (0.2-1.0); Total Protein 7.4 g/dL (6.4-8.2)
== END | disposition home or self-care (01) ==
LOC: CHF HDHVI 10:51
PROVIDERS: ATTEND Internal Medicine Cardiovascular Disease
DX: I27.21 Secondary pulmonary arterial hypertension (principal); R53.83 Other fatigue; I13.0 Hypertensive heart and chronic kidney disease with heart failure and stage 1 through stage 4 chronic kidney disease, or unspecified chronic kidney disease; E11.22 Type 2 diabetes mellitus with diabetic chronic kidney disease; I50.23 Acute on chronic systolic (congestive) heart failure; N18.31 Chronic kidney disease, stage 3a; I48.0 Paroxysmal atrial fibrillation; K21.9 Gastro-esophageal reflux disease without esophagitis; E78.5 Hyperlipidemia, unspecified; Z79.84 Long term (current) use of oral hypoglycemic drugs; Z79.01 Long term (current) use of anticoagulants; Z79.899 Other long term (current) drug therapy
CPT/HCPCS: 36415; 80053; 83880; 85025; 96372; G0463; J3420

== ENCOUNTER → 2020-09-23 | Outpatient (CLI) | payer MEDICARE, BC ==
[~2020-09-23] MED LIST changes: -CYANOCOBALAMIN (B-12) 1000 MCG/1 ML VIAL IM ONE; -CYANOCOBALAMIN (B-12) 1000 MCG/1 ML VIAL ONE; -SILVER SULFADIAZINE 1 % TOPICAL CREAM 50GM TOP ONE
== END | disposition home or self-care (01) ==
LOC: Rad HDHVI 11:05
PROVIDERS: ATTEND Internal Medicine Cardiovascular Disease
DX: I65.22 Occlusion and stenosis of left carotid artery (principal); I10 Essential (primary) hypertension; E78.5 Hyperlipidemia, unspecified
CPT/HCPCS: 93880

== ENCOUNTER → 2020-10-06 | Outpatient (CLI) | payer MEDICARE, BC ==
[~2020-10-06] MED LIST changes: +CYANOCOBALAMIN (B-12) 1000 MCG/1 ML VIAL IM ONE; +CYANOCOBALAMIN (B-12) 1000 MCG/1 ML VIAL ONE
[2020-10-06 11:15] VITALS: BP 134/62
[2020-10-06 12:10] VITALS: BP 132/60
[2020-10-06 15:19] LABS: Basophils # (auto) 0.1 10 ^3/uL (0-0.2); Eosinophils # (auto) 0 10 ^3/uL (0-0.8); Nucleated Red Blood Cells % 0.1 %
[2020-10-06 15:21] LABS: Basophils % (auto) 1.1 % (0.0-2.0); Eosinophils % (auto) 0.7 % (0.0-7.0); Hematocrit 32.7 % (36.0-46.0); Hemoglobin 10.7 g/dL (12.2-16.2); Lymphocytes % (auto) 16.8 % (10.0-50.0); Mean Corpuscular Hemoglobin 23.3 pg (28.0-32.0); Mean Corpuscular Hgb Conc. 32.9 g/dL (32.0-36.0); Monocytes # (auto) 0.5 10 ^3/uL (0-1.3); Neutrophils # (auto) 4.2 10 ^3/uL (1.6-8.6); Neutrophils % (auto) 72.4 % (37.0-80.0); Red Cell Distribution Width 19.5 % (11.8-14.3); White Blood Cell 5.8 10^3/uL (4.4-10.8)
[2020-10-06 15:42] LABS: Albumin 3.5 g/dL (3.4-5.0); BUN/Creatinine Ratio 16.9; Calcium 9.2 mg/dL (8.5-10.1)
[2020-10-06 15:45] LABS: Bilirubin, Total 0.6 mg/dL (0.2-1.0); Total Protein 7.1 g/dL (6.4-8.2)
== END | disposition home or self-care (01) ==
LOC: CHF HDHVI 11:15
PROVIDERS: ATTEND Internal Medicine Cardiovascular Disease
DX: I27.21 Secondary pulmonary arterial hypertension (principal); I13.0 Hypertensive heart and chronic kidney disease with heart failure and stage 1 through stage 4 chronic kidney disease, or unspecified chronic kidney disease; E11.22 Type 2 diabetes mellitus with diabetic chronic kidney disease; I50.23 Acute on chronic systolic (congestive) heart failure; N18.31 Chronic kidney disease, stage 3a; D64.9 Anemia, unspecified; R53.83 Other fatigue; I48.0 Paroxysmal atrial fibrillation; K21.9 Gastro-esophageal reflux disease without esophagitis; E78.5 Hyperlipidemia, unspecified; Z79.84 Long term (current) use of oral hypoglycemic drugs; Z79.01 Long term (current) use of anticoagulants; Z79.899 Other long term (current) drug therapy
CPT/HCPCS: 36415; 80053; 83880; 85025; 85049; 96372; G0463; J3420

== ENCOUNTER → 2020-11-02 | Outpatient (CLI) | payer MEDICARE, BC ==
[~2020-11-02] MED LIST changes: -CYANOCOBALAMIN (B-12) 1000 MCG/1 ML VIAL IM ONE; -CYANOCOBALAMIN (B-12) 1000 MCG/1 ML VIAL ONE; +FUROSEMIDE 100 MG/10ML VIAL IV ONE; +FUROSEMIDE 20 MG/2 ML VIAL IV ONE; +FUROSEMIDE 20 MG/2 ML VIAL ONE; +FUROSEMIDE 40 MG/4 ML VIAL ONE; +POTASSIUM CHL 10 Meq TABLET PO ONE; +POTASSIUM CHL 20 Meq TABLET PO ONE
[2020-11-02 10:13] VITALS: BP 141/47
[2020-11-02 10:46] VITALS: BP 141/54
[2020-11-02 11:46] LABS: Basophils # (auto) 0.1 10 ^3/uL (0-0.2); Basophils % (auto) 1.2 % (0.0-2.0); Eosinophils # (auto) 0.1 10 ^3/uL (0-0.8); Eosinophils % (auto) 0.8 % (0.0-7.0); Hematocrit 33.9 % (36.0-46.0); Hemoglobin 10.7 g/dL (12.2-16.2); Lymphocytes # (auto) 1.1 10 ^3/uL (0.4-5.4); Lymphocytes % (auto) 16.3 % (10.0-50.0); Mean Corpuscular Hemoglobin 22.1 pg (28.0-32.0); Mean Corpuscular Hgb Conc. 31.5 g/dL (32.0-36.0); Mean Corpuscular Volume 70.1 fL (80.0-100.0); Monocytes # (auto) 0.6 10 ^3/uL (0-1.3); Neutrophils # (auto) 5.1 10 ^3/uL (1.6-8.6); Neutrophils % (auto) 72.7 % (37.0-80.0); Nucleated Red Blood Cells % 0.1 %; Red Blood Cells 4.84 10^6/uL (4.0-5.20); White Blood Cell 7.1 10^3/uL (4.4-10.8)
[2020-11-02 11:50] LABS: Albumin 3.3 g/dL (3.4-5.0); Calcium 9.5 mg/dL (8.5-10.1); Potassium 4.3 mmol/L (3.5-5.1)
[2020-11-02 11:51] LABS: Red Cell Distribution Width 20.7 % (11.8-14.3)
[2020-11-02 11:57] LABS: BUN/Creatinine Ratio 15.4; Bilirubin, Total 0.8 mg/dL (0.2-1.0)
[2020-11-02 12:00] VITALS: BP 141/54
[2020-11-02 15:54] LABS: Urine Blood Negative /uL (Negative); Urine Specific Gravity 1.008 (1.001-1.035)
== END | disposition home or self-care (01) ==
LOC: CHF HDHVI 10:33
PROVIDERS: ATTEND Internal Medicine Cardiovascular Disease
DX: I13.0 Hypertensive heart and chronic kidney disease with heart failure and stage 1 through stage 4 chronic kidney disease, or unspecified chronic kidney disease (principal); E11.22 Type 2 diabetes mellitus with diabetic chronic kidney disease; I50.23 Acute on chronic systolic (congestive) heart failure; N18.32 Chronic kidney disease, stage 3b; R53.83 Other fatigue; R60.9 Edema, unspecified; R06.02 Shortness of breath; I48.0 Paroxysmal atrial fibrillation; I27.21 Secondary pulmonary arterial hypertension; K21.9 Gastro-esophageal reflux disease without esophagitis; E78.5 Hyperlipidemia, unspecified; Z79.01 Long term (current) use of anticoagulants; Z79.84 Long term (current) use of oral hypoglycemic drugs; Z79.899 Other long term (current) drug therapy
CPT/HCPCS: 36415; 71046; 80053; 81003; 83880; 85025; 96374; 96376; G0463; J1940

== ENCOUNTER → 2020-11-05 | Outpatient (CLI) | payer MEDICARE, BC ==
[~2020-11-05] MED LIST changes: -FUROSEMIDE 100 MG/10ML VIAL IV ONE; -FUROSEMIDE 20 MG/2 ML VIAL IV ONE; -FUROSEMIDE 20 MG/2 ML VIAL ONE; -FUROSEMIDE 40 MG/4 ML VIAL ONE; -POTASSIUM CHL 10 Meq TABLET PO ONE; -POTASSIUM CHL 20 Meq TABLET PO ONE
[2020-11-05 10:05] VITALS: BP 105/60
[2020-11-05 10:45] VITALS: BP 139/65
[2020-11-05 11:38] LABS: Uric Acid 8.8 mg/dL (2.6-6.0)
== END | disposition home or self-care (01) ==
LOC: Rad HDHVI 08:59
PROVIDERS: ATTEND Internal Medicine Cardiovascular Disease
DX: I50.23 Acute on chronic systolic (congestive) heart failure (principal); I27.21 Secondary pulmonary arterial hypertension; R06.02 Shortness of breath; I10 Essential (primary) hypertension
CPT/HCPCS: 36415; 82565; 83880; 84520; 84550; 93306; G0463

== ENCOUNTER → 2020-11-16 | Outpatient (CLI) | payer MEDICARE, BC ==
[~2020-11-16] MED LIST changes: +ALLO300T2 PO; +ONDA-144 PO; +POM PO; +RIVA2.5T PO; +TORS20TA19 PO
== END | disposition home or self-care (01) ==
LOC: Rad HDHVI 15:02
PROVIDERS: ATTEND Internal Medicine Cardiovascular Disease
DX: J90 Pleural effusion, not elsewhere classified (principal); R09.89 Other specified symptoms and signs involving the circulatory and respiratory systems; K44.9 Diaphragmatic hernia without obstruction or gangrene; M47.814 Spondylosis without myelopathy or radiculopathy, thoracic region; M47.816 Spondylosis without myelopathy or radiculopathy, lumbar region; I70.0 Atherosclerosis of aorta; I51.7 Cardiomegaly; R06.02 Shortness of breath
CPT/HCPCS: 71046

== ENCOUNTER 2020-11-20 11:21 | Day surgery (SDC) | payer MEDICARE, BC ==
[~2020-11-20] VITALS: Ht 152.4 cm; Wt 74.0 kg
[~2020-11-20 11:21] MED LIST changes: -COLLCAP2 OR; -MELO1TAB73 PO; -METO25TA5 PO; -POM; -RIVA10TA PO; -TORS20TA20 PO
[2020-11-20] MEDS ORDERED: HYDROmorphone HCL 2 MG/ML VL IV ONE (15:00)
[2020-11-20] MEDS ORDERED: HYDROmorphone HCL 2 MG/ML VL ONE (15:00)
== END 2020-11-20 16:48 | disposition home or self-care (01) ==
LOC: CATH 11:21
PROVIDERS: ATTEND Internal Medicine Cardiovascular Disease
DX: R06.02 Shortness of breath (principal); Z20.822 Contact with and (suspected) exposure to COVID-19; Z88.1 Allergy status to other antibiotic agents; Z88.8 Allergy status to other drugs, medicaments and biological substances; Z68.31 Body mass index [BMI] 31.0-31.9, adult; Z98.890 Other specified postprocedural states; Z79.899 Other long term (current) drug therapy
CPT/HCPCS: 32555; 71045; 76942; C1729; J1170; U0003; 99152

== ENCOUNTER 2020-11-25 16:44 | Inpatient (IN) | payer MEDICARE, BC ==
[~2020-11-25] VITALS: Ht 33 cm; Wt 84.6 kg
[2020-11-25 19:45] VITALS: BP 124/66
[2020-11-25 22:00] VITALS: BP 139/62
[2020-11-25] MEDS ORDERED: MORPHINE SULFATE INJECTION 2 MG/ML SYRG IV PRN (22:15)
[2020-11-25] MEDS ORDERED: DEXTROSE (50%) 50ML SYRG IV PRN (22:30)
[2020-11-25] MEDS: traZODone HCL 50 MG TAB PO SCH (22:56)
[2020-11-25] MEDS: INSULIN LANTUS (GLARGINE) 1 /0.01ml (100units/ml) SC SCH (22:57)
[2020-11-25] MEDS ORDERED: INSLANTI SC (23:58)
[2020-11-26] MEDS ORDERED: TORS20TA19 PO (00:04)
[2020-11-26] MEDS ORDERED: TRAZ100T3 PO (00:04)
[2020-11-26] MEDS ORDERED: HYAL20CA2 PO (00:04)
[2020-11-26] MEDS ORDERED: B-CO-15 OR (00:04)
[2020-11-26] MEDS ORDERED: POM PO (00:08)
[2020-11-26 05:00] VITALS: BP 135/60
[2020-11-26 05:24] LABS: Basophils # (auto) 0.2 10 ^3/uL (0-0.2); Eosinophils # (auto) 0.1 10 ^3/uL (0-0.8); Lymphocytes # (auto) 0.8 10 ^3/uL (0.4-5.4)
[2020-11-26 05:26] LABS: Basophils % (auto) 2.9 % (0.0-2.0); Eosinophils % (auto) 1.8 % (0.0-7.0); Hematocrit 27.8 % (36.0-46.0); Hemoglobin 8.9 g/dL (12.2-16.2); Lymphocytes % (auto) 10.6 % (10.0-50.0); Mean Corpuscular Hemoglobin 22.9 pg (28.0-32.0); Mean Corpuscular Hgb Conc. 32.1 g/dL (32.0-36.0); Mean Corpuscular Volume 71.4 fL (80.0-100.0); Monocytes # (auto) 0.7 10 ^3/uL (0-1.3); Monocytes % (auto) 9.4 % (0.0-12.0); Neutrophils # (auto) 5.6 10 ^3/uL (1.6-8.6); Neutrophils % (auto) 75.3 % (37.0-80.0); Red Blood Cells 3.89 10^6/uL (4.0-5.20); White Blood Cell 7.4 10^3/uL (4.4-10.8)
[2020-11-26 05:32] LABS: INR 1.17 (0.9-1.15)
[2020-11-26 05:43] LABS: Potassium 3.6 mmol/L (3.5-5.1)
[2020-11-26 05:44] LABS: Red Cell Distribution Width 23.6 % (11.8-14.3)
[2020-11-26 05:54] LABS: Albumin 2.5 g/dL (3.4-5.0); BUN/Creatinine Ratio 22.1; Bilirubin, Total 0.6 mg/dL (0.2-1.0); Calcium 9.3 mg/dL (8.5-10.1); Total Protein 6.4 g/dL (6.4-8.2)
[2020-11-26] MEDS ORDERED: FUROSEMIDE 20 MG TAB PO SCH ×2 (06:00→10:00)
[2020-11-26] MEDS: ACCU-CHEK COMFORT CURVE STRIP VI SCH ×4 (06:23→21:58)
[2020-11-26] MEDS: InsuLIN REG 1unit/0.01ml Soln (100units/ml) SC SCH ×4 (06:23→21:58)
[2020-11-26] MEDS: AMIODARONE HCL 200 MG TAB PO SCH (08:45)
[2020-11-26] MEDS: CHOLECALCIFEROL (VITD3) 1,000UNIT=25mCg TAB PO SCH (08:45)
[2020-11-26] MEDS: POTASSIUM CHL 10 Meq TABLET PO SCH (08:45)
[2020-11-26] MEDS: TORSEMIDE 20 MG TAB PO SCH (08:46)
[2020-11-26 09:00] VITALS: BP 130/59
[2020-11-26] MEDS: PANTOPRAZOLE 40 MG TAB PO SCH (10:00)
[2020-11-26 13:00] VITALS: BP 140/76
[2020-11-26] MEDS: MAGNESIUM OXIDE 400 MG TAB PO SCH (14:00)
[2020-11-26] MEDS: ADEMPAS 2 MG PO SCH ×2 (14:00→21:50)
[2020-11-26] MEDS: metFORMIN HYDROCHLORIDE 500 MG TAB PO SCH (14:52)
[2020-11-26 17:00] VITALS: BP 130/62
[2020-11-26] MEDS: traZODone HCL 50 MG TAB PO SCH (21:57)
[2020-11-26 22:00] VITALS: BP 143/68
[2020-11-26] MEDS ORDERED: traZODone HCL 50 MG TAB PO SCH (22:00)
[2020-11-26] MEDS ORDERED: INSULIN LANTUS (GLARGINE) 1 /0.01ml (100units/ml) SC SCH (22:00)
[2020-11-26] MEDS: INSULIN LANTUS (GLARGINE) 1 /0.01ml (100units/ml) SC SCH (22:03)
[2020-11-27 05:00] VITALS: BP 124/62
[2020-11-27] MEDS: ADEMPAS 2 MG PO SCH ×3 (06:08→21:35)
[2020-11-27] MEDS: ACCU-CHEK COMFORT CURVE STRIP VI SCH ×4 (06:09→21:35)
[2020-11-27] MEDS: InsuLIN REG 1unit/0.01ml Soln (100units/ml) SC SCH ×4 (06:11→21:43)
[2020-11-27] MEDS: HYDROcodone-ACET 10/325MG TAB PO PRN (06:15)
[2020-11-27] MEDS ORDERED: LIDOCAINE W/ EPINEPHRINE 1% 20ML VIAL ONE (08:05)
[2020-11-27] MEDS ORDERED: BUPIVACAINE 0.25% INJ 50ML VIAL ONE (08:05)
[2020-11-27] MEDS ORDERED: POVIDONE IODINE 10 % TOPICAL OINT 30GM TOP ONE (09:18)
[2020-11-27 09:34] VITALS: BP 132/68
[2020-11-27] MEDS: CHOLECALCIFEROL (VITD3) 1,000UNIT=25mCg TAB PO SCH (10:00)
[2020-11-27] MEDS: TORSEMIDE 20 MG TAB PO SCH (10:00)
[2020-11-27] MEDS: metFORMIN HYDROCHLORIDE 500 MG TAB PO SCH (10:00)
[2020-11-27] MEDS: MAGNESIUM OXIDE 400 MG TAB PO SCH (10:00)
[2020-11-27] MEDS: AMIODARONE HCL 200 MG TAB PO SCH (10:00)
[2020-11-27] MEDS: PANTOPRAZOLE 40 MG TAB PO SCH (10:00)
[2020-11-27] MEDS: POTASSIUM CHL 10 Meq TABLET PO SCH (10:00)
[2020-11-27] MEDS ORDERED: MORPHINE SULFATE 4 MG/ML SYR/VIAL IV PRN (10:45)
[2020-11-27] MEDS ORDERED: HYDROmorphone HCL 2 MG/ML VL IV PRN (16:45)
[2020-11-27 16:46] VITALS: BP 157/70
[2020-11-27] MEDS: Glucerna Carbsteady SHAKE Vanilla 8oz PO SCH (18:00)
[2020-11-27] MEDS ORDERED: ONDANSETRON HCL 4 MG/2 ML VIAL IV PRN (18:00)
[2020-11-27] MEDS: HYDROmorphone HCL 2 MG/ML VL IV PRN (18:06)
[2020-11-27] MEDS: traZODone HCL 50 MG TAB PO SCH (21:35)
[2020-11-27] MEDS: INSULIN LANTUS (GLARGINE) 1 /0.01ml (100units/ml) SC SCH (21:43)
[2020-11-27 22:00] VITALS: BP 131/70
[2020-11-28] MEDS: HYDROmorphone HCL 2 MG/ML VL IV PRN ×4 (00:58→23:16)
[2020-11-28 05:00] VITALS: BP 106/54
[2020-11-28] MEDS: ADEMPAS 2 MG PO SCH ×3 (05:42→22:14)
[2020-11-28] MEDS: InsuLIN REG 1unit/0.01ml Soln (100units/ml) SC SCH ×4 (06:14→22:22)
[2020-11-28] MEDS: ACCU-CHEK COMFORT CURVE STRIP VI SCH ×4 (06:14→22:15)
[2020-11-28 08:00] VITALS: BP 104/54
[2020-11-28] MEDS: Glucerna Carbsteady SHAKE Vanilla 8oz PO SCH ×3 (08:15→17:33)
[2020-11-28] MEDS: TORSEMIDE 20 MG TAB PO SCH (10:00)
[2020-11-28] MEDS: PANTOPRAZOLE 40 MG TAB PO SCH (10:00)
[2020-11-28] MEDS: POTASSIUM CHL 10 Meq TABLET PO SCH (10:00)
[2020-11-28] MEDS: MAGNESIUM OXIDE 400 MG TAB PO SCH (10:00)
[2020-11-28] MEDS: AMIODARONE HCL 200 MG TAB PO SCH (10:00)
[2020-11-28] MEDS: metFORMIN HYDROCHLORIDE 500 MG TAB PO SCH (10:00)
[2020-11-28] MEDS: CHOLECALCIFEROL (VITD3) 1,000UNIT=25mCg TAB PO SCH (10:00)
[2020-11-28] MEDS: IPRATROPIUM BROM 0.5 MG/2.5ML INH SOL NEB SCH ×3 (10:45→22:12)
[2020-11-28] MEDS ORDERED: FUROSEMIDE 40 MG/4 ML VIAL IV ONE (10:45)
[2020-11-28 11:07] VITALS: BP 104/54
[2020-11-28] MEDS: HYDROcodone-ACET 10/325MG TAB PO PRN (11:23)
[2020-11-28] MEDS: cefTRIAXone 1GM/50ML D5W 50 ML IV SCH (11:29)
[2020-11-28] MEDS ORDERED: methylPREDNISolone SOD SUCC 40 MG/ML VL IV ONE (11:30)
[2020-11-28 13:00] VITALS: BP 110/53
[2020-11-28 16:00] VITALS: BP 132/69
[2020-11-28] MEDS: methylPREDNISolone SOD SUCC 40 MG/ML VL IV SCH (19:56)
[2020-11-28 22:00] VITALS: BP 132/71
[2020-11-28] MEDS: traZODone HCL 50 MG TAB PO SCH (22:14)
[2020-11-28] MEDS: INSULIN LANTUS (GLARGINE) 1 /0.01ml (100units/ml) SC SCH (22:22)
[2020-11-29] MEDS: methylPREDNISolone SOD SUCC 40 MG/ML VL IV SCH ×3 (03:05→19:33)
[2020-11-29 05:00] VITALS: BP 142/70
[2020-11-29] MEDS: ADEMPAS 2 MG PO SCH ×3 (06:21→21:50)
[2020-11-29] MEDS: ACCU-CHEK COMFORT CURVE STRIP VI SCH ×4 (06:21→21:50)
[2020-11-29] MEDS: InsuLIN REG 1unit/0.01ml Soln (100units/ml) SC SCH ×4 (06:27→21:57)
[2020-11-29] MEDS: HYDROmorphone HCL 2 MG/ML VL IV PRN ×3 (06:27→20:16)
[2020-11-29] MEDS: IPRATROPIUM BROM 0.5 MG/2.5ML INH SOL NEB SCH ×4 (07:38→21:06)
[2020-11-29 08:00] VITALS: BP 132/71
[2020-11-29] MEDS: Glucerna Carbsteady SHAKE Vanilla 8oz PO SCH ×3 (08:00→18:00)
[2020-11-29] MEDS: POTASSIUM CHL 10 Meq TABLET PO SCH (10:00)
[2020-11-29] MEDS: MAGNESIUM OXIDE 400 MG TAB PO SCH (10:00)
[2020-11-29] MEDS: cefTRIAXone 1GM/50ML D5W 50 ML IV SCH (10:47)
[2020-11-29] MEDS: TORSEMIDE 20 MG TAB PO SCH (10:47)
[2020-11-29] MEDS: AMIODARONE HCL 200 MG TAB PO SCH (10:47)
[2020-11-29] MEDS: metFORMIN HYDROCHLORIDE 500 MG TAB PO SCH (10:48)
[2020-11-29] MEDS: PANTOPRAZOLE 40 MG TAB PO SCH (10:48)
[2020-11-29] MEDS: CHOLECALCIFEROL (VITD3) 1,000UNIT=25mCg TAB PO SCH (10:48)
[2020-11-29 11:24] LABS: Magnesium 2.3 mg/dL (1.6-2.6); Potassium 5.1 mmol/L (3.5-5.1)
[2020-11-29 12:00] VITALS: BP 123/64
[2020-11-29 16:00] VITALS: BP 133/72
[2020-11-29] MEDS: traZODone HCL 50 MG TAB PO SCH (21:50)
[2020-11-29] MEDS: INSULIN LANTUS (GLARGINE) 1 /0.01ml (100units/ml) SC SCH (21:57)
[2020-11-29 22:00] VITALS: BP 118/57
[2020-11-30] MEDS: HYDROmorphone HCL 2 MG/ML VL IV PRN ×4 (02:14→23:16)
[2020-11-30] MEDS: methylPREDNISolone SOD SUCC 40 MG/ML VL IV SCH ×3 (03:04→20:27)
[2020-11-30 05:00] VITALS: BP 119/67
[2020-11-30] MEDS: IPRATROPIUM BROM 0.5 MG/2.5ML INH SOL NEB SCH ×3 (05:54→22:35)
[2020-11-30] MEDS: ACCU-CHEK COMFORT CURVE STRIP VI SCH ×4 (06:02→22:00)
[2020-11-30] MEDS: ADEMPAS 2 MG PO SCH ×3 (06:02→22:00)
[2020-11-30] MEDS: InsuLIN REG 1unit/0.01ml Soln (100units/ml) SC SCH ×4 (06:05→22:00)
[2020-11-30 09:00] VITALS: BP 132/63
[2020-11-30] MEDS: metFORMIN HYDROCHLORIDE 500 MG TAB PO SCH (09:14)
[2020-11-30] MEDS: MAGNESIUM OXIDE 400 MG TAB PO SCH (09:14)
[2020-11-30] MEDS: PANTOPRAZOLE 40 MG TAB PO SCH (09:14)
[2020-11-30] MEDS: TORSEMIDE 20 MG TAB PO SCH (09:14)
[2020-11-30] MEDS: POTASSIUM CHL 10 Meq TABLET PO SCH (09:15)
[2020-11-30] MEDS: AMIODARONE HCL 200 MG TAB PO SCH (09:15)
[2020-11-30] MEDS: CHOLECALCIFEROL (VITD3) 1,000UNIT=25mCg TAB PO SCH (09:15)
[2020-11-30] MEDS: cefTRIAXone 1GM/50ML D5W 50 ML IV SCH (09:19)
[2020-11-30] MEDS: Glucerna Carbsteady SHAKE Vanilla 8oz PO SCH ×3 (10:26→17:06)
[2020-11-30] MEDS: HYDROcodone-ACET 10/325MG TAB PO PRN ×2 (11:48→20:27)
[2020-11-30 15:34] VITALS: BP 112/61
[2020-11-30 17:19] VITALS: BP 107/60
[2020-11-30 21:35] VITALS: BP 147/67
[2020-11-30] MEDS: traZODone HCL 50 MG TAB PO SCH (22:00)
[2020-11-30] MEDS: INSULIN LANTUS (GLARGINE) 1 /0.01ml (100units/ml) SC SCH (22:27)
[2020-12-01] MEDS: methylPREDNISolone SOD SUCC 40 MG/ML VL IV SCH ×3 (04:23→20:55)
[2020-12-01 05:30] VITALS: BP 137/61
[2020-12-01] MEDS: IPRATROPIUM BROM 0.5 MG/2.5ML INH SOL NEB SCH ×3 (06:12→21:34)
[2020-12-01] MEDS: ACCU-CHEK COMFORT CURVE STRIP VI SCH ×4 (06:30→21:55)
[2020-12-01] MEDS: HYDROcodone-ACET 10/325MG TAB PO PRN ×2 (06:41→17:30)
[2020-12-01] MEDS: ADEMPAS 2 MG PO SCH ×3 (06:41→21:55)
[2020-12-01] MEDS: InsuLIN REG 1unit/0.01ml Soln (100units/ml) SC SCH ×4 (06:42→22:22)
[2020-12-01 09:00] VITALS: BP 103/54
[2020-12-01] MEDS: cefTRIAXone 1GM/50ML D5W 50 ML IV SCH (09:47)
[2020-12-01] MEDS: Glucerna Carbsteady SHAKE Vanilla 8oz PO SCH ×3 (09:47→19:03)
[2020-12-01] MEDS: AMIODARONE HCL 200 MG TAB PO SCH (09:48)
[2020-12-01] MEDS: metFORMIN HYDROCHLORIDE 500 MG TAB PO SCH (09:48)
[2020-12-01] MEDS: TORSEMIDE 20 MG TAB PO SCH (09:48)
[2020-12-01] MEDS: CHOLECALCIFEROL (VITD3) 1,000UNIT=25mCg TAB PO SCH (09:49)
[2020-12-01] MEDS: POTASSIUM CHL 10 Meq TABLET PO SCH (09:49)
[2020-12-01] MEDS: MAGNESIUM OXIDE 400 MG TAB PO SCH (09:49)
[2020-12-01] MEDS: PANTOPRAZOLE 40 MG TAB PO SCH (09:49)
[2020-12-01 13:00] VITALS: BP 117/59
[2020-12-01 13:38] VITALS: BP 117/72
[2020-12-01] MEDS: HYDROmorphone HCL 2 MG/ML VL IV PRN ×2 (15:39→21:59)
[2020-12-01 16:49] VITALS: BP 117/49
[2020-12-01 22:00] VITALS: BP 114/47
[2020-12-01] MEDS: traZODone HCL 50 MG TAB PO SCH (22:00)
[2020-12-01] MEDS: INSULIN LANTUS (GLARGINE) 1 /0.01ml (100units/ml) SC SCH (22:22)
[2020-12-02] VITALS (7 sets, daily range): BP systolic 108–129; BP diastolic 45–61
[2020-12-02] MEDS: HYDROcodone-ACET 10/325MG TAB PO PRN ×3 (03:24→17:20)
[2020-12-02] MEDS: methylPREDNISolone SOD SUCC 40 MG/ML VL IV SCH ×3 (03:38→20:30)
[2020-12-02] MEDS: IPRATROPIUM BROM 0.5 MG/2.5ML INH SOL NEB SCH ×3 (06:08→22:40)
[2020-12-02] MEDS: ADEMPAS 2 MG PO SCH ×3 (06:44→20:47)
[2020-12-02] MEDS: ACCU-CHEK COMFORT CURVE STRIP VI SCH ×4 (06:45→20:48)
[2020-12-02] MEDS: InsuLIN REG 1unit/0.01ml Soln (100units/ml) SC SCH ×4 (06:55→20:55)
[2020-12-02] MEDS: Glucerna Carbsteady SHAKE Vanilla 8oz PO SCH ×3 (09:33→18:46)
[2020-12-02] MEDS: cefTRIAXone 1GM/50ML D5W 50 ML IV SCH (09:34)
[2020-12-02] MEDS: AMIODARONE HCL 200 MG TAB PO SCH (09:34)
[2020-12-02] MEDS: metFORMIN HYDROCHLORIDE 500 MG TAB PO SCH (09:35)
[2020-12-02] MEDS: TORSEMIDE 20 MG TAB PO SCH (09:35)
[2020-12-02] MEDS: POTASSIUM CHL 10 Meq TABLET PO SCH ×2 (09:36→10:00)
[2020-12-02] MEDS: MAGNESIUM OXIDE 400 MG TAB PO SCH (09:36)
[2020-12-02] MEDS: PANTOPRAZOLE 40 MG TAB PO SCH (09:37)
[2020-12-02] MEDS: CHOLECALCIFEROL (VITD3) 1,000UNIT=25mCg TAB PO SCH (09:37)
[2020-12-02] MEDS: HYDROmorphone HCL 2 MG/ML VL IV PRN ×2 (10:28→20:35)
[2020-12-02 14:19] LABS: Basophils # (auto) 0 10 ^3/uL (0-0.2); Eosinophils # (auto) 0 10 ^3/uL (0-0.8); Hemoglobin 9.8 g/dL (12.2-16.2); Lymphocytes # (auto) 0.1 10 ^3/uL (0.4-5.4); Lymphocytes % (auto) 1.5 % (10.0-50.0); Monocytes # (auto) 0.4 10 ^3/uL (0-1.3); Neutrophils # (auto) 8.8 10 ^3/uL (1.6-8.6); Nucleated Red Blood Cells % 0.2 %; White Blood Cell 9.3 10^3/uL (4.4-10.8)
[2020-12-02 14:21] LABS: Basophils % (auto) 0.2 % (0.0-2.0); Hematocrit 31.2 % (36.0-46.0); Mean Corpuscular Hemoglobin 22.2 pg (28.0-32.0); Mean Corpuscular Hgb Conc. 31.5 g/dL (32.0-36.0); Mean Corpuscular Volume 70.4 fL (80.0-100.0); Monocytes % (auto) 4.3 % (0.0-12.0); Red Blood Cells 4.43 10^6/uL (4.0-5.20)
[2020-12-02 14:23] LABS: Red Cell Distribution Width 23.3 % (11.8-14.3)
[2020-12-02 14:24] LABS: Albumin 2.4 g/dL (3.4-5.0); Calcium 9.5 mg/dL (8.5-10.1); Potassium 4.6 mmol/L (3.5-5.1)
[2020-12-02 14:27] LABS: Bilirubin, Total 0.5 mg/dL (0.2-1.0); Total Protein 6.4 g/dL (6.4-8.2)
[2020-12-02] MEDS: SODIUM CHLORIDE 0.9% 1,000 ML IV SCH (16:16)
[2020-12-02] MEDS: traZODone HCL 50 MG TAB PO SCH (20:47)
[2020-12-02] MEDS: INSULIN LANTUS (GLARGINE) 1 /0.01ml (100units/ml) SC SCH (20:55)
[2020-12-03] VITALS (7 sets, daily range): BP systolic 116–132; BP diastolic 54–65
[2020-12-03] MEDS: HYDROcodone-ACET 10/325MG TAB PO PRN ×2 (01:44→17:16)
[2020-12-03] MEDS: SODIUM CHLORIDE 0.9% 1,000 ML IV SCH ×2 (02:37→14:41)
[2020-12-03] MEDS: methylPREDNISolone SOD SUCC 40 MG/ML VL IV SCH ×3 (03:51→19:54)
[2020-12-03] MEDS: ADEMPAS 2 MG PO SCH ×3 (05:46→22:33)
[2020-12-03] MEDS: HYDROmorphone HCL 2 MG/ML VL IV PRN ×3 (06:01→19:54)
[2020-12-03] MEDS: ACCU-CHEK COMFORT CURVE STRIP VI SCH ×4 (06:07→22:33)
[2020-12-03] MEDS: InsuLIN REG 1unit/0.01ml Soln (100units/ml) SC SCH ×4 (06:12→22:40)
[2020-12-03] MEDS: IPRATROPIUM BROM 0.5 MG/2.5ML INH SOL NEB SCH ×3 (06:13→19:32)
[2020-12-03] MEDS: Glucerna Carbsteady SHAKE Vanilla 8oz PO SCH ×3 (10:16→18:52)
[2020-12-03] MEDS: cefTRIAXone 1GM/50ML D5W 50 ML IV SCH (10:16)
[2020-12-03] MEDS: AMIODARONE HCL 200 MG TAB PO SCH (10:17)
[2020-12-03] MEDS: TORSEMIDE 20 MG TAB PO SCH (10:17)
[2020-12-03] MEDS: metFORMIN HYDROCHLORIDE 500 MG TAB PO SCH (10:18)
[2020-12-03] MEDS: POTASSIUM CHL 10 Meq TABLET PO SCH (10:18)
[2020-12-03] MEDS: PANTOPRAZOLE 40 MG TAB PO SCH (10:19)
[2020-12-03] MEDS: MAGNESIUM OXIDE 400 MG TAB PO SCH (10:19)
[2020-12-03] MEDS: CHOLECALCIFEROL (VITD3) 1,000UNIT=25mCg TAB PO SCH (10:19)
[2020-12-03] MEDS: traZODone HCL 50 MG TAB PO SCH (22:00)
[2020-12-03] MEDS: INSULIN LANTUS (GLARGINE) 1 /0.01ml (100units/ml) SC SCH (22:41)
[2020-12-04] MEDS: methylPREDNISolone SOD SUCC 40 MG/ML VL IV SCH ×3 (04:28→20:10)
[2020-12-04] MEDS: HYDROmorphone HCL 2 MG/ML VL IV PRN ×3 (04:36→16:35)
[2020-12-04 05:30] VITALS: BP 129/54
[2020-12-04] MEDS: IPRATROPIUM BROM 0.5 MG/2.5ML INH SOL NEB SCH ×3 (06:17→20:33)
[2020-12-04] MEDS: ADEMPAS 2 MG PO SCH ×2 (06:46→14:29)
[2020-12-04] MEDS: ACCU-CHEK COMFORT CURVE STRIP VI SCH ×3 (06:46→18:07)
[2020-12-04] MEDS: InsuLIN REG 1unit/0.01ml Soln (100units/ml) SC SCH ×3 (06:49→18:36)
[2020-12-04] MEDS: Glucerna Carbsteady SHAKE Vanilla 8oz PO SCH ×3 (08:45→18:06)
[2020-12-04 09:00] VITALS: BP 127/50
[2020-12-04] MEDS: cefTRIAXone 1GM/50ML D5W 50 ML IV SCH (09:08)
[2020-12-04] MEDS: PANTOPRAZOLE 40 MG TAB PO SCH (10:11)
[2020-12-04] MEDS: metFORMIN HYDROCHLORIDE 500 MG TAB PO SCH (10:11)
[2020-12-04] MEDS: MAGNESIUM OXIDE 400 MG TAB PO SCH (10:11)
[2020-12-04] MEDS: TORSEMIDE 20 MG TAB PO SCH (10:12)
[2020-12-04] MEDS: AMIODARONE HCL 200 MG TAB PO SCH (10:12)
[2020-12-04] MEDS: POTASSIUM CHL 10 Meq TABLET PO SCH (10:12)
[2020-12-04] MEDS: CHOLECALCIFEROL (VITD3) 1,000UNIT=25mCg TAB PO SCH (10:13)
[2020-12-04] MEDS: SODIUM CHLORIDE 0.9% 1,000 ML IV SCH (10:45)
[2020-12-04] MEDS: HYDROcodone-ACET 10/325MG TAB PO PRN ×3 (11:46→20:10)
[2020-12-04 13:00] VITALS: BP 127/54
[2020-12-04 16:46] VITALS: BP 131/62
[2020-12-04 18:37] VITALS: BP 127/50
== END 2020-12-04 21:50 | disposition hospice, home (50) | DRG 314 ==
LOC: TELE-CENTR 17:34
PROVIDERS: ADMIT Internal Medicine Cardiovascular Disease; ATTEND Internal Medicine Cardiovascular Disease
PROC: 5A09357 Assistance with Respiratory Ventilation, Less than 24 Consecutive Hours, Continuous Positive Airway Pressure (ICD-10-PCS; 2020-11-27)
PROC: 0W9B30Z Drainage of Left Pleural Cavity with Drainage Device, Percutaneous Approach (ICD-10-PCS; principal; 2020-11-27 08:50)
PROC: 0W993ZZ Drainage of Right Pleural Cavity, Percutaneous Approach (ICD-10-PCS; 2020-11-28)
PROC: 5A09357 Assistance with Respiratory Ventilation, Less than 24 Consecutive Hours, Continuous Positive Airway Pressure (ICD-10-PCS; 2020-11-28)
PROC: 5A09357 Assistance with Respiratory Ventilation, Less than 24 Consecutive Hours, Continuous Positive Airway Pressure (ICD-10-PCS; 2020-11-29)
DX: I27.20 Pulmonary hypertension, unspecified (principal); J18.9 Pneumonia, unspecified organism; J96.01 Acute respiratory failure with hypoxia; J90 Pleural effusion, not elsewhere classified; J98.11 Atelectasis; L98.418 Non-pressure chronic ulcer of buttock with other specified severity; I49.5 Sick sinus syndrome; Z66 Do not resuscitate; Z20.822 Contact with and (suspected) exposure to COVID-19; Z79.01 Long term (current) use of anticoagulants; Z88.8 Allergy status to other drugs, medicaments and biological substances
CPT/HCPCS: 32551; 32555; 36415; 36600; 71045; 71046; 80053; 82805; 82962; 83735; 84132; 85025; 85610; 93005; 94640; 94660; 97110; 97163; G0378; J0690; J0696; J1815; J2250; J2405; J3490